=== PATIENT | female | born 1985 | race Caucasian/White ===

== ENCOUNTER 2018-05-28 11:57 | Emergency (ER) | payer SELFPAY ==
[2018-05-28 12:14] VITALS: BMI 27.2
--- NOTE | 2018-05-28 13:07 | PDOC ---
History of Present Illness - General Chief Complaint: Revisit, Lab Variance Stated Complaint: LAB VARIANCE (PCP SENT) Time Seen by Provider: 05/28/18 12:56 History Source: Patient Exam Limitations: No Limitations - History of Present Illness Initial Comments: 05/28/18 13:08 CHIEF COMPLAINT: Abnormal labs REVIEW OF SYSTEMS: This is a 32-year-old female who has been seeing Dr. Em for post- hypertension (she does not have another PCP) who presents today after follow-up labs revealed a BUN of 114 and creatinine of 8.2. The patient denies shortness of breath, edema, oliguria, or any other symptoms. She is not currently taking any hypertensive meds. She is sent for further evaluation and admission. Vital signs on arrival are notable for blood pressure 170/108. REVIEW OF SYSTEMS: GENERAL/CONSTITUTIONAL: No fever or chills. No weakness. No weight change. HEAD, EYES, EARS, NOSE AND THROAT: No change in vision. No ear pain or discharge. No sore throat. CARDIOVASCULAR: No chest pain or palpitations. RESPIRATORY: No cough, wheezing, or shortness of breath. GASTROINTESTINAL: No nausea, vomiting, diarrhea or constipation. GENITOURINARY: No dysuria, frequency, or change in urination. MUSCULOSKELETAL: No joint or muscle swelling or pain. No neck or back pain. SKIN: No rash or easy bruising. NEUROLOGIC: No headache, vertigo, loss of consciousness, or loss of sensation. PSYCHIATRIC: No depression or anxiety. ENDOCRINE: No increased thirst. No abnormal weight change. HEMATOLOGIC/LYMPHATIC: No anemia, easy bleeding, or history of blood clots. ALLERGIC/IMMUNOLOGIC: No hives or skin allergy. No latex allergy. PHYSICAL EXAM: GENERAL: The patient is awake, alert, and fully oriented, in no acute distress. HEAD: Normal with no signs of trauma. ENT: Pupils equal, round and reactive to light, extraocular movements intact, sclera anicteric, conjunctiva clear. Neck supple. LUNGS: Clear to auscultation bilaterally. Normal excursion. No respiratory distress or use of accessory muscles. CV: RRR, S1/S2, no MRG. Cap refill < 2 sec. ABDOMEN: Soft, non-distended, non-tender. EXTREMITIES: Normal range of motion, no edema. NEUROLOGICAL: Normal speech, normal gait. CN II-XII grossly intact. PSYCH: Normal mood, normal affect. SKIN: Warm, dry, normal turgor, no rashes or lesions noted. Past History - Past Medical History Allergies/Adverse Reactions: Allergies Allergy/AdvReac Type Severity Reaction Status Date / Time No Known Allergies Allergy Verified 04/05/16 10:26 Home Medications: Ambulatory Orders Ergocalciferol [Drisdol -] 50,000 unit PO FR 04/05/16 Labetalol HCl 300 mg PO Q12H 04/05/16 Methyldopa 250 mg PO Q12H 04/05/16 Mifepristone [Mifeprex] 0 mg PO ASDIR 04/05/16 Labetalol HCl [Normodyne -] 300 mg PO BID #60 tablet 04/08/16 Nifedipine ER [Procardia XL -] 30 mg PO DAILY #30 tab.er.24 04/08/16 Sodium Bicarbonate - 650 mg PO BID #14 tablet 04/08/16 COPD: No HTN: Yes Thyroid Disease: No - Surgical History Abdominal Surgery: Yes Cholecystectomy: Yes - Immunization History Immunization Up to Date: No - Suicide/Smoking/Psychosocial Hx Smoking History: Never smoked Have you smoked in the past 12 months: No Cigars Per Day: 0 Hx Alcohol Use: No Drug/Substance Use Hx: No Substance Use Type: None *Physical Exam - Vital Signs Last Vital Signs Temp Pulse Resp BP Pulse Ox 98.1 F 97 H 18 170/108 H 100 05/28/18 12:10 05/28/18 12:10 05/28/18 12:10 05/28/18 12:10 05/28/18 12:10 Moderate Sedation - Procedure Monitoring Vital Signs: Procedure Monitoring Vital Signs Temperature 98.1 F 05/28/18 12:10 Pulse Rate 97 H 05/28/18 12:10 Respiratory Rate 18 05/28/18 12:10 Blood Pressure 170/108 H 05/28/18 12:10 O2 Sat by Pulse Oximetry (%) 100 05/28/18 12:10 ED Treatment Course - LABORATORY CBC & Chemistry Diagram: 05/28/18 14:35 05/28/18 14:35 Medical Decision Making - Medical Decision Making 05/28/18 14:37 A/P: 32-year-old female with hypertension and acute kidney injury. -Discussed with Dr. Jackson: Will repeat labs, send AZAM, obtain renal u/s (renal doppler unavailable) -Will hydrate -Will admit 05/28/18 15:53 BUN 137/Cr 9.0, bicarb 12, calcium 5.1. Bicarb 650mg PO given. 2g IVPB calcium gluconate ordered. Ultrasound reviewed: small and echogenic kidneys consistent with chronic medical renal disease. Patient extensively counseled in Kiswahili that labs are very concerning and that immediate workup and treatment are necessary. She has decided to leave AMA at 6pm because she does not have childcare. She agrees to return tomorrow morning for admission, understanding that she will likely need to stay at least 5 days in the hospital. *DC/Admit/Observation/Transfer Diagnosis at time of Disposition: Hypocalcemia, Metabolic acidosis Acute on chronic renal failure Qualifiers: Acute renal failure type: unspecified Chronic kidney disease stage: stage 4 ( severe) Qualified Code(s): N17.9 - Acute kidney failure, unspecified; N18.4 - Chronic kidney disease, stage 4 (severe) Hypertension Qualifiers: Hypertension type: unspecified Qualified Code(s): I10 - Essential (primary) hypertension - Discharge Dispostion Disposition: AGAINST MEDICAL ADVICE Condition at time of disposition: Guarded Decision to Admit order: No - Referrals - Patient Instructions Printed Discharge Instructions: DI for Kidney Failure Additional Instructions: ES MUY IMPORTANT QUE REGRESE MANANA PARA [facility]. Print Language: SAUDI ARABIAN - Post Discharge Activity
[2018-05-28] MEDS ORDERED: SODIUM CHLORIDE 1,000 ML IV SCH ×2 (13:15→15:53)
[2018-05-28 14:54] LABS: BASO % 0.7 % (0-2.0); EOS % 1.8 % (0-4.5); HEMATOCRIT 28.2 % (32.4-45.2); HEMOGLOBIN 9.9 GM/dL (10.7-15.3); LYMPH % 12.4 % (8-40); MCH 32.1 pg (25.7-33.7); MEAN CELL VOLUME 91.6 fl (80-96); MEAN PLT VOLUME 8.8 fl (7.5-11.1); MONO % 3.9 % (3.8-10.2); NEUT % 81.2 % (42.8-82.8); PLATELET COUNT 226 K/MM3 (134-434); RBC 3.08 M/mm3 (3.60-5.2); RDW 13.2 % (11.6-15.6); WHITE BLOOD COUNT 10.1 K/mm3 (4.0-10.0)
[2018-05-28] MEDS ORDERED: SODIUM BICARBONATE 650 MG TABLET PO ONE ×2 (15:04→17:00)
[2018-05-28] MEDS ORDERED: NIFEdipine E.R. 30 MG TABLET (FP) ONE (15:13)
--- NOTE | 2018-05-28 15:17 | CONSULT ---
Consult - text type - Consultation Consultation Note: Renal Consult for CORAL on CKD This is a 32 year old woman with hx of CKD (baseline Cr ~2), Hypertension who was sent to the ED by Dr. Madison Em for outpatient labs that showed BUN/Cr of 114/8.22. Pt was intially seen by our service in 2016 for CORAL and Hypertension following a miscarriage. During that admission her Cr was intialy 3.6 but improved to ~2 after IVF. She presents now and has no acute complaints. Denies any N/V/LUCAS, CP, SOB. Making urine as per pt. Denies any leg swelling, fever, chills. Denies any NSAID use. No recent contrast exposure. No arm or leg weakness. K was 3.8, Bicarb was 16 on outpatient labs. BP was noted to be high. She reports that she is currently not taking any meds at home. PMhx: as above Allergies: NKDA Family Hx: NC Social Hx: No T/A/D ROS: as per HPI, all other pertinent ros negative Home Medications Medication Instructions Recorded Ergocalciferol [Drisdol -] 50,000 unit PO FR 04/05/16 Labetalol HCl 300 mg PO Q12H 04/05/16 Methyldopa 250 mg PO Q12H 04/05/16 Mifepristone [Mifeprex] 0 mg PO ASDIR 04/05/16 Labetalol HCl [Normodyne -] 300 mg PO BID #60 tablet 04/08/16 Nifedipine ER [Procardia XL -] 30 mg PO DAILY #30 tab.er.24 04/08/16 Sodium Bicarbonate - 650 mg PO BID #14 tablet 04/08/16 This was med list from piror admission, pt currently denies taking any medications Vital Signs Temperature 98.1 F 05/28/18 12:10 Pulse Rate 97 H 05/28/18 12:10 Respiratory Rate 18 05/28/18 12:10 Blood Pressure 170/108 H 05/28/18 12:10 O2 Sat by Pulse Oximetry (%) 100 05/28/18 12:10 Intake & Output 05/25/18 05/26/18 05/27/18 05/28/18 23:59 23:59 23:59 23:59 Weight 61.235 kg NAD awake and alrert neck supple, no JVD RRR, No M/R CTA, no rales or wheeze soft NT/ND No LE edema, clubbing or cyanosis no asterxsis no skin rash no focal neurologic defects CBC, BMP 05/28/18 14:35 Current Medications Sodium Chloride (Normal Saline -) 1,000 mls @ 83 mls/hr IV ASDIR CLARE Last Admin: 05/28/18 14:46 Dose: 83 mls/hr Nifedipine (Procardia Xl -) 30 mg PO DAILY CLARE 2 year old woman with hx of CKD (baseline Cr ~2), Hypertension who was sent to the ED by Dr. Madison Em for outpatient labs that showed BUN/Cr of 114/8.22. #Acute on Chronic Renal insuffiency #CKD stage 4 w/o nephrotic range proteinuria (prior work up showed negative AZAM , ANCA, Hepatitis profile) #Anemia #Uncontrolled Hypertension Etiology of CORAL unclear at this time, may be Volume depletion/ATN vs. hypertensive emergency vs. HUS vs. obstrction vs. acute GN vs. progressive hypertensive nephrosclerosis Check Urine for FeNa, UPCR, Eosinophils Check repeat AZAM, ANCA, LDH, Haptoglobin Check HIV, Hepatits profile Would give aggressive IVF hydration Start Nifedpine ER for hypertension Check iron profile in AM Start sodium bicarb for acidosis No emergency indication for PRIVACY DIRECTOR at this moment Thank you Will follow Will Jackson DO
[2018-05-28 15:31] LABS: ALBUMIN 3.5 g/dl (3.4-5.0); ALK PHOS 100 U/L (45-117); ANION GAP 16 MMOL/L (8-16); BILIRUBIN,TOTAL 0.2 mg/dL (0.2-1); CHLORIDE 110 mmol/L (98-107); CO2 12 mmol/L (21-32); GLUCOSE,RANDOM 86 mg/dL (74-106); MAGNESIUM 1.9 mg/dL (1.8-2.4); PHOSPHOROUS 8.7 mg/dL (2.5-4.9); POTASSIUM 4.1 mmol/L (3.5-5.1); SGOT/AST 18 U/L (15-37); SGPT/ALT 15 U/L (13-61); SODIUM 138 mmol/L (136-145); TOT PROT 7.1 g/dl (6.4-8.2); URIC ACID 10.1 mg/dL (2.6-7.2)
[2018-05-28 15:39] LABS: BLOOD UREA NITROGEN 137 mg/dL (7-18)
[2018-05-28 15:40] LABS: CALCIUM 5.1 mg/dL (8.5-10.1)
[2018-05-28 15:49] LABS: URINE APPEARANCE SLCLOUDY; URINE BILIRUBIN NEGATIVE (<2.0 mg/dL); URINE COLOR STRAW; URINE GLUCOSE (UA) NEGATIVE (NEGATIVE); URINE KETONE NEGATIVE (NEGATIVE); URINE LEUK ESTERASE NEGATIVE (NEGATIVE); URINE NITRITE NEGATIVE (NEGATIVE); URINE PROTEIN 2+ (NEGATIVE); URINE UROBILINOGEN NEGATIVE mg/dL (0.2-1.0)
[2018-05-28] MEDS ORDERED: CALCIUM GLUCONATE 10% - 1,000 MG/10 ML VIAL IVPB ONE (16:08)
[2018-05-28] MEDS ORDERED: CALCIUM GLUCONATE 10% - 1,000 MG/10 ML VIAL ONE (16:47)
[2018-05-28] MEDS ORDERED: DEXTROSE 5% IVPB SCH (17:00)
[2018-05-28] MEDS ORDERED: WATER IVPB SCH (17:00)
[2018-05-28] MEDS ORDERED: CALCIUM GLUCONATE IVPB SCH (17:00)
[2018-05-28 17:03] LABS: EPI CELLS RARE /HPF (FEW); URINE BACTERIA RARE /hpf (NONE SEEN); URINE MUCUS RARE
[2018-05-28 18:07] VITALS: BP 189/93; PULSE 70; TEMP 97.9
[2018-05-29] MEDS ORDERED: NIFEdipine E.R. 30 MG TABLET (FP) PO SCH (10:00)
== END 2018-05-28 17:52 | disposition left against medical advice (07) ==
LOC: JER 11:57
PROC: 3E0337Z Introduction of Electrolytic and Water Balance Substance into Peripheral Vein, Percutaneous Approach (ICD-10-PCS; principal; 2018-05-28)
DX: I12.9 Hypertensive chronic kidney disease with stage 1 through stage 4 chronic kidney disease, or unspecified chronic kidney disease (principal); N18.4 Chronic kidney disease, stage 4 (severe); N17.9 Acute kidney failure, unspecified; E83.51 Hypocalcemia; E87.2 Acidosis; D64.9 Anemia, unspecified
CPT/HCPCS: 36415; 76775-TC; 80053; 81003; 81015; 82570; 83010; 83735; 84100; 84156; 84550; 85025; 86038; 87205; 99281-25; J7030

== ENCOUNTER 2018-05-29 09:33 | Inpatient (IN) | payer OTHER ==
--- NOTE | 2018-05-29 10:05 | PDOC ---
History of Present Illness - General Chief Complaint: Pain, Acute Stated Complaint: REVISIT, PAIN Time Seen by Provider: 05/29/18 10:03 History Source: Patient Exam Limitations: No Limitations - History of Present Illness Initial Comments: 05/29/18 11:06 CHIEF COMPLAINT: Abnormal labs REVIEW OF SYSTEMS: This is a 32-year-old female who has been seeing Dr. Em for post- hypertension and mildly elevated creatinine (she does not have another PCP) and who initially presented 05/28 after follow-up labs revealed a BUN of 114 and creatinine of 8.2. She was asymptomatic, specifically denying shortness of breath, edema, and oliguria. She was noted to be hypertensive to the 170/100 range (she is not currently taking any medications) . Labs were notable for BUN 137/Cr 9.0 (previously in 2.3-2.6 range), bicarb 12 , calcium 5.1, UA 2+ protein. She was given 1L IVF, bicarb 650mg PO, 2g calcium gluconate IVPB, and Procardia XL 30mg. Renal ultrasound revealed small and echogenic kidneys consistent with chronic medical renal disease. She was evaluated by nephrology and admission for expedited workup and treatment was recommended. She then left AMA because of childcare issues and was counseled to return today for admission. She denies any new symptoms. She denies any NSAID or any other OTC medication use. V/s on arrival are notable for BP 163/109. REVIEW OF SYSTEMS: GENERAL/CONSTITUTIONAL: No fever or chills. No weakness. No weight change. HEAD, EYES, EARS, NOSE AND THROAT: No change in vision. No ear pain or discharge. No sore throat. CARDIOVASCULAR: No chest pain or palpitations. RESPIRATORY: No cough, wheezing, or shortness of breath. GASTROINTESTINAL: No nausea, vomiting, diarrhea or constipation. GENITOURINARY: No dysuria, frequency, or change in urination. MUSCULOSKELETAL: No joint or muscle swelling or pain. No neck or back pain. SKIN: No rash or easy bruising. NEUROLOGIC: No headache, vertigo, loss of consciousness, or loss of sensation. PSYCHIATRIC: No depression or anxiety. ENDOCRINE: No increased thirst. No abnormal weight change. HEMATOLOGIC/LYMPHATIC: No anemia, easy bleeding, or history of blood clots. ALLERGIC/IMMUNOLOGIC: No hives or skin allergy. No latex allergy. PHYSICAL EXAM: GENERAL: The patient is awake, alert, and fully oriented, in no acute distress. HEAD: Normal with no signs of trauma. ENT: Pupils equal, round and reactive to light, extraocular movements intact, sclera anicteric, conjunctiva clear. Neck supple. LUNGS: Clear to auscultation bilaterally. Normal excursion. No respiratory distress or use of accessory muscles. CV: RRR, S1/S2, no MRG. Cap refill < 2 sec. ABDOMEN: Soft, non-distended, non-tender. EXTREMITIES: Normal range of motion, no edema. NEUROLOGICAL: Normal speech, normal gait. CN II-XII grossly intact. PSYCH: Normal mood, normal affect. SKIN: Warm, dry, normal turgor, no rashes or lesions noted. Past History - Past Medical History Allergies/Adverse Reactions: Allergies Allergy/AdvReac Type Severity Reaction Status Date / Time No Known Allergies Allergy Verified 04/05/16 10:26 Home Medications: Ambulatory Orders NK [No Known Home Medication] 05/29/18 COPD: No HTN: Yes Thyroid Disease: No - Surgical History Abdominal Surgery: Yes Cholecystectomy: Yes - Immunization History Immunization Up to Date: No - Suicide/Smoking/Psychosocial Hx Smoking History: Never smoked Have you smoked in the past 12 months: No Cigars Per Day: 0 Information on smoking cessation initiated: No Hx Alcohol Use: No Drug/Substance Use Hx: No Substance Use Type: None *Physical Exam - Vital Signs Last Vital Signs Temp Pulse Resp BP Pulse Ox 97.9 F 86 18 163/109 H 98 05/29/18 09:55 05/29/18 09:55 05/29/18 09:55 05/29/18 09:55 05/29/18 09:55 Moderate Sedation - Procedure Monitoring Vital Signs: Procedure Monitoring Vital Signs Temperature 97.9 F 05/29/18 09:55 Pulse Rate 86 05/29/18 09:55 Respiratory Rate 18 05/29/18 09:55 Blood Pressure 163/109 H 05/29/18 09:55 O2 Sat by Pulse Oximetry (%) 98 05/29/18 09:55 ED Treatment Course - LABORATORY CBC & Chemistry Diagram: 05/29/18 10:25 05/29/18 10:25 Medical Decision Making - Medical Decision Making 05/29/18 11:10 A/P: 32-year-old female with 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 -Repeat labs -IV hydration per renal recs -Admit 05/29/18 11:52 BUN/Cr 134/9.0 Bicarb 14 - 1300 mg PO Ca++ 5.4 - Ca gluconate 2g IVPB Continue IVF 05/29/18 11:[address] Jackson, recommends: -Admission -Sodium bicarb 650mg po bid -Continue fluids for 24h -Procardia XL 30mg po bid -Will schedule biopsy with IR (not today, patient may eat) *DC/Admit/Observation/Transfer Diagnosis at time of Disposition: Acute kidney injury, Hypocalcemia Hypertension Qualifiers: Hypertension type: unspecified Qualified Code(s): I10 - Essential (primary) hypertension - Discharge Dispostion Condition at time of disposition: Guarded Decision to Admit order: Yes - Referrals - Patient Instructions - Post Discharge Activity
--- NOTE | 2018-05-29 10:05 | PDOC ---
*Physical Exam - Vital Signs Last Vital Signs Temp Pulse Resp BP Pulse Ox 97.9 F 86 18 163/109 H 98 05/29/18 09:55 05/29/18 09:55 05/29/18 09:55 05/29/18 09:55 05/29/18 09:55 ED Treatment Course - LABORATORY CBC & Chemistry Diagram: 05/29/18 10:25 05/29/18 10:25 Medical Decision Making - Medical Decision Making 05/29/18 11:00 32 yo F presenting for admission Was seen in the ER yesterday, new renal failure pt could not stay yesterday Pt returns for admission EKG - NSR rate of 84 bpm, axis nml, no st elevation or depressions, t waves upright, ( +) PACs Pt seen by Midlevel Provider under my direct supervision Pt interviewed and examined Ancillary studies reviewed I agree with plan as outlined by Midlevel Provider *DC/Admit/Observation/Transfer Diagnosis at time of Disposition: Hypertension, Acute kidney injury, Hypocalcemia - Discharge Dispostion Condition at time of disposition: Guarded - Referrals - Patient Instructions - Post Discharge Activity
[2018-05-29] MEDS ORDERED: NIFEdipine E.R. 30 MG TABLET (FP) PO ONE (10:08)
[2018-05-29] MEDS ORDERED: NIFEdipine E.R. 30 MG TABLET (FP) ONE (10:14)
[2018-05-29 10:36] LABS: BASO % 0.6 % (0-2.0); HEMATOCRIT 26.4 % (32.4-45.2); HEMOGLOBIN 9.3 GM/dL (10.7-15.3); LYMPH % 11.4 % (8-40); MCH 32.3 pg (25.7-33.7); MCHC 35.1 g/dl (32.0-36.0); MEAN PLT VOLUME 8.1 fl (7.5-11.1); MONO % 5.3 % (3.8-10.2); NEUT % 80.7 % (42.8-82.8); PLATELET COUNT 195 K/MM3 (134-434); RBC 2.87 M/mm3 (3.60-5.2); RDW 12.6 % (11.6-15.6); WHITE BLOOD COUNT 7.8 K/mm3 (4.0-10.0)
[2018-05-29] MEDS: SODIUM CHLORIDE 1,000 ML IV SCH (10:45)
[2018-05-29 11:30] LABS: ALBUMIN 3.3 g/dl (3.4-5.0); ALK PHOS 91 U/L (45-117); ANION GAP 16 MMOL/L (8-16); BILIRUBIN,TOTAL 0.3 mg/dL (0.2-1); CHLORIDE 110 mmol/L (98-107); CO2 14 mmol/L (21-32); GLUCOSE,RANDOM 90 mg/dL (74-106); PHOSPHOROUS 8.1 mg/dL (2.5-4.9); POTASSIUM 3.7 mmol/L (3.5-5.1); SGOT/AST 14 U/L (15-37); SGPT/ALT 14 U/L (13-61); SODIUM 141 mmol/L (136-145); TOT PROT 6.7 g/dl (6.4-8.2); URIC ACID 9.7 mg/dL (2.6-7.2)
[2018-05-29 11:31] LABS: URINE APPEARANCE CLEAR; URINE BILIRUBIN NEGATIVE (<2.0 mg/dL); URINE COLOR STRAW; URINE GLUCOSE (UA) NEGATIVE (NEGATIVE); URINE KETONE NEGATIVE (NEGATIVE); URINE LEUK ESTERASE NEGATIVE (NEGATIVE); URINE NITRITE NEGATIVE (NEGATIVE); URINE PROTEIN 2+ (NEGATIVE); URINE UROBILINOGEN NEGATIVE mg/dL (0.2-1.0)
[2018-05-29 11:34] LABS: EPI CELLS RARE /HPF (FEW); URINE MUCUS RARE
[2018-05-29] MEDS ORDERED: SODIUM BICARBONATE 650 MG TABLET PO ONE ×2 (11:43→11:53)
[2018-05-29 11:52] LABS: BLOOD UREA NITROGEN 134 mg/dL (7-18)
[2018-05-29] MEDS ORDERED: CALCIUM GLUCONATE 10% - 1,000 MG/10 ML VIAL IVPB ONE (11:52)
--- NOTE | 2018-05-29 11:55 | EKG ---
Test Reason : Blood Pressure : / mmHG Vent. Rate : 084 BPM Atrial Rate : 084 BPM P-R Int : 144 ms QRS Dur : 092 ms QT Int : 406 ms P-R-T Axes : 048 046 035 degrees QTc Int : 479 ms SINUS RHYTHM WITH PREMATURE SUPRAVENTRICULAR COMPLEXES OTHERWISE NORMAL ECG WHEN COMPARED WITH ECG OF 20-MAR-2016 09:26, PREMATURE SUPRAVENTRICULAR COMPLEXES ARE NOW PRESENT Confirmed by PARAM COTTER, MIGUEL ([id number]) on 05/29/2018 11:55:20 AM Referred By: Confirmed By:MIGUEL VIRGEN MD
[2018-05-29] MEDS ORDERED: CALCIUM GLUCONATE 10% - 1,000 MG/10 ML VIAL ONE (12:35)
[2018-05-29 12:40] LABS: CALCIUM 5.4 mg/dL (8.5-10.1)
[2018-05-29] MEDS ORDERED: WATER IVPB SCH (12:45)
[2018-05-29] MEDS ORDERED: DEXTROSE 5% IVPB SCH (12:45)
[2018-05-29] MEDS ORDERED: CALCIUM GLUCONATE IVPB SCH (12:45)
--- NOTE | 2018-05-29 13:25 | HP ---
CHIEF COMPLAINT: Sent for abnormal labs PCP: None Process Safety Engineer: Dr. Andre Em HISTORY OF PRESENT ILLNESS: 32yo F with history of CKD Stage IV (baseline Cr 2.0ish), HTN ( not on medications) who presents today due to abnormal labs. She was seen in the ER yesterday, however left AMA because her children did not have a ui software engineer while she was admitted. She returned today for likely admission as a result. Originally, pt was seen by her physician Dr. Em who recommended her to come to the ER due to severely elevated BUN and acute kidney injury (Cr 9.0) found on her office labs. Pt reports first seeing Dr. Em for post- HTN after a miscarriage around 2015. Pt reports not taking any medications recently including avoidance of all NSAIDs. Pt denies any symptoms at present time including clouded sensorium, focal neurological deficits, headache, lightheadedness, muscle twitching, SOB, CP/discomfort, palpitations, abdominal pain, back pain, dysuria, polyuria, oliguria, and hematuria. Of note: on 05/28 renal US was performed showing no hydronephrosis and echogeneic kidneys. On her initial labs confirmation of her uremia, Cr 9.0, electrolyte abnormalities and acidemia were confirmed. Recent Travel: Denies PAST MEDICAL HISTORY: CKD stage IV (nonnephrotic range proteinuria) HTN PAST SURGICAL HISTORY: None; denies any renal/urological procedures Social History: Smoking: Denies Alcohol: Denies Drugs: Denies Family History: Noncontributory Allergies No Known Allergies Allergy (Verified 04/05/16 10:26) HOME MEDICATIONS: Home Medications Medication Instructions Recorded NK [No Known Home Medication] 05/29/18 REVIEW OF SYSTEMS As per HPI PHYSICAL EXAMINATION Vital Signs - 24 hr 05/29/18 09:55 Temperature 97.9 F Pulse Rate 86 Respiratory 18 Rate Blood Pressure 163/109 H O2 Sat by Pulse 98 Oximetry (%) GENERAL: NAD, Awake, alert, and fully oriented, sitting in chair HEENT: NC/AT, EOMI, ROSA, sclera anicteric, MMM NECK: No JVD LUNGS: CTA bilaterally with good inspiratory effort. No wheezes, and no crackles. No accessory muscle use. On RA HEART: RRR, normal S1 and S2 without murmur, rub or gallop. ABDOMEN: Soft, NT/ND, normoactive bowel sounds, no guarding, No organomegaly via palpation. MUSCULOSKELETAL: No CVA tenderness. EXTREMITIES: 2+ distal pulses b/l, warm, well-perfused. No peripheral edema. NEUROLOGICAL: auto dismantler II-XII intact. Strength 5/5 in all upper and lower extremity areas. Sensation intact symmetrically. Normal speech. Gait stable. No tremoring noted. Reflexes 2/4 PSYCHIATRIC: Cooperative. Good eye contact. Appropriate mood and affect. SKIN: Warm, dry, no rashes or lesions noted Laboratory Results 05/29/18 05/29/18 05/29/18 10:25 10:25 11:20 WBC 7.8 RBC 2.87 L Hgb 9.3 L Hct 26.4 L MCV 92.0 MCH 32.3 MCHC 35.1 RDW 12.6 Plt Count 195 MPV 8.1 Absolute Neuts (auto) 6.3 Neutrophils % 80.7 Lymphocytes % 11.4 Monocytes % 5.3 Eosinophils % 2.0 Basophils % 0.6 Nucleated RBC % 0 Sodium 141 Potassium 3.7 Chloride 110 H Carbon Dioxide 14 L Anion Gap 16 BUN 134 H* Creatinine 9.0 H* Creat Clearance w eGFR 5.03 Random Glucose 90 Uric Acid 9.7 H Calcium 5.4 L* Phosphorus 8.1 H Total Bilirubin 0.3 AST 14 L ALT 14 Alkaline Phosphatase 91 Total Protein 6.7 Albumin 3.3 L Urine Color Straw Urine Appearance Clear Urine pH 5.0 Ur Specific [place] 1.009 L Urine Protein 2+ H Urine Glucose (UA) Negative Urine Ketones Negative Urine Blood 1+ H Urine Nitrite Negative Urine Bilirubin Negative Urine Urobilinogen Negative Ur Leukocyte Esterase Negative Urine WBC (Auto) 1 Urine RBC (Auto) 1 Ur Epithelial Cells Rare Urine Mucus Rare Urine Creatinine Urine HCG, Qual ASSESSMENT/PLAN: Acute on Chronic kidney failure Hypertensive Emergency Severe hypoCalcemia Uremia Normocytic Anemia Metabolic Acidosis --Etiology of acute kidney failure unclear --Differential: HTN emergency vs. HUS vs. ATN vs. other glomerular disease --Renal U/S 05/28/18: No evidence of hydronephrosis; echogenic kidneys noted b /l --Urine Pro:Cr 1.1 --> nonnephrotic range (<3.5) --Dr. Jackson on board --Procardia XL 30mg BID for HTN control --Intense fluid hydration for 24h; NS@125cc/hr; may need to switch to 1/ 2NS if further increase in Na and Cl --Possible IR biopsy tomorrow 05/30/18 pending HTN controlled --In absence of neurological deficits and clouded sensorium can hold off on emergent dialysis for now --Sodium Bicarb (1300 already given in ED) for acidosis; continue supplementation BID 650mg PO --FeNa pending Urine spot sodium; UCr 66 --UTox ordered --p- and c-ANCA ordered --LDH ordered --BMP repeat 1800h --Monitor BP q4h for HTN emergency --Labetalol 200mg PO BID PRN for SBP >150 --Procardia as above --Will likely need long-term maintenance upon discharge FEN: Fluids: NS@125cc/hr; 50cc/hr of D5W with Ca gtt noted Electrolyte abnormalities: HyperPhosphatemia, Severe hypoCalcemia (Calcium gtt) Nutrition: Renal Diet; NPO after midnight for possible IR kidney biopsy PPX: DVT - Heparin SQ; can hold night dose until tomorrow in case of IR procedure Code Status: Full Code Dispo: Can admit med-surg; does not need CCB/B-paola gtt for HTN emergency at this point; emergency SILK OPENER deferred for now Case discussed with Dr. Huerta and Nephrology service DO Mona George PGY-2 Visit type - Emergency Visit Emergency Visit: Yes ED Registration Date: 05/29/18 Care time: The patient presented to the Emergency Department on the above date and was hospitalized for further evaluation of their emergent condition. - New Patient This patient is new to me today: Yes Date on this admission: 05/29/18 - Critical Care Critical Care patient: No
--- NOTE | 2018-05-29 13:32 | PN ---
Progress Note (short form) - Note Progress Note: Renal follow up for CORAL on CKD Please see consult note done yesterday, will be listed under yesterdays ED visit. Pt seen and examined in the ER. Reports having a low appetite, feeling fatigued and having metallic taste in her mouth once again denies any NSAID or abx use Denies any flank pain No N/V/D, no arm or leg weakness, no confusion or lethargy making urine, no leg swelling Vital Signs Temperature 97.9 F 05/29/18 09:55 Pulse Rate 86 05/29/18 09:55 Respiratory Rate 18 05/29/18 09:55 Blood Pressure 163/109 H 05/29/18 09:55 O2 Sat by Pulse Oximetry (%) 98 05/29/18 09:55 Intake & Output 05/26/18 05/27/18 05/28/18 05/29/18 23:59 23:59 23:59 23:59 Weight 68.039 kg NAD awake and alrert neck supple, no JVD RRR, No M/R CTA, no rales or wheeze soft NT/ND No LE edema, clubbing or cyanosis no asterxsis no skin rash no focal neurologic defects CBC, BMP 05/29/18 10:25 05/29/18 10:25 Current Medications Heparin Sodium (Porcine) (Heparin -) 5,000 unit SQ Q8H-IV CLARE Sodium Chloride (Normal Saline -) 1,000 mls @ 125 mls/hr IV ASDIR CLARE Last Admin: 05/29/18 10:45 Dose: 125 mls/hr Calcium Gluconate 11,000 mg/ (Dextrose) 1,110 mls @ 50 mls/hr IVPB Q24H CLARE Nifedipine (Procardia Xl -) 30 mg PO DAILY CLARE 32 year old woman with hx of CKD (baseline Cr ~2), Hypertension who was sent to the ED by Dr. Madison Em for outpatient labs that showed BUN/Cr of 114/8.22. #Acute on Chronic Renal insufficiency #CKD stage 4 w/o nephrotic range proteinuria (prior work up showed negative AZAM , ANCA, Hepatitis profile) #Anemia #Uncontrolled Hypertension #Severe Hypocalcemia with Hyperphosphatemia #Metabolic acidosis Renal function essentially unchanged from yesterday despite IVF given in the ER US showed small echogenic kidneys w/o obstruction UPCR is 1.1 so not in nephrotic range AZAM is pending, repeat ANCA check LDH/Haptoglobin Check ABG or VBG will discuss with radiology if pt is a candidate to have a renal biopsy done although lack of overt proteinruia or hematuria makes it less likely that the pt is having a acute GN Will need to control BP, goal < 140/90 Start Nifedpine ER 30mg BID, start labetalol 200mg BID if BP not controlled avoid NSAIDS, ALFREDO and ARB given low eGFR Start oral sodium bicarb 650mg BID s/p calcium gluconate 2g IV in the ER, start calcium gtt Start Calcium acetate 667mg with meals if not significant improvement in renal function within the next 24 hours will need FAMILY SUPPORT WORKER Will Jackson DO
[2018-05-29] MEDS ORDERED: LABETALOL HCL 200 MG TABLET (FP) PO PRN ×2 (13:44→13:50)
--- NOTE | 2018-05-29 14:34 | PN ---
Teaching Attending Note Name of Resident: Christ Long ATTENDING PHYSICIAN STATEMENT I saw and evaluated the patient. I reviewed the resident's note and discussed the case with the resident. I agree with the resident's findings and plan as documented. SUBJECTIVE: Patient is a 32yo albanian speaking female with PMHx of CKD Stage IV (baseline Cr is around 2.0), HTN who presents with elevated Labs BUN of 134 and creatinine of 9.0 . Patient was sent to ED. from Dr. sandhu's office. Patient reports not taking any NSAIDs . Denies any change of mental status, no itching. OBJECTIVE: Vital Signs Temperature 97.9 F 05/29/18 09:55 Pulse Rate 86 05/29/18 09:55 Respiratory Rate 18 05/29/18 09:55 Blood Pressure 163/109 H 05/29/18 09:55 O2 Sat by Pulse Oximetry (%) 98 05/29/18 09:55 GENERAL: Awake, alert, and fully oriented, in no acute distress. HEAD: Normal with no signs of trauma. EYES: Pupils equal, round and reactive to light, extraocular movements intact, sclera anicteric, conjunctiva clear. EARS, NOSE, THROAT: Ears normal, oropharynx clear without exudates. Moist mucous membranes. NECK: Normal range of motion, supple without lymphadenopathy, JVD, or masses. LUNGS: Breath sounds equal, clear to auscultation bilaterally. No wheezes, and no crackles. No accessory muscle use. HEART: Regular rate and rhythm, normal S1 and S2 without murmur, rub or gallop. ABDOMEN: Soft, nontender, not distended, normoactive bowel sounds, no guarding, no rebound, no masses. No hepatomegaly or splenomegaly. MUSCULOSKELETAL: Normal range of motion at all joints. No bony deformities or tenderness. No CVA tenderness. EXTREMITIES: 2+ pulses, warm, well-perfused. No cyanosis. No clubbing. No peripheral edema. NEUROLOGICAL: Cranial nerves II-XII intact. Normal speech. Normal gait. PSYCHIATRIC: Cooperative. Good eye contact. Appropriate mood and affect. SKIN: Warm, dry, normal turgor, no rashes or lesions noted, normal capillary refill. CBCD WBC 7.8 K/mm3 (4.0-10.0) 05/29/18 10:25 RBC 2.87 M/mm3 (3.60-5.2) L 05/29/18 10:25 Hgb 9.3 GM/dL (10.7-15.3) L 05/29/18 10:25 Hct 26.4 % (32.4-45.2) L 05/29/18 10:25 MCV 92.0 fl (80-96) 05/29/18 10:25 MCHC 35.1 g/dl (32.0-36.0) 05/29/18 10:25 RDW 12.6 % (11.6-15.6) 05/29/18 10:25 Plt Count 195 K/MM3 (134-434) 05/29/18 10:25 MPV 8.1 fl (7.5-11.1) 05/29/18 10:25 CMP Sodium 141 mmol/L (136-145) 05/29/18 10:25 Potassium 3.7 mmol/L (3.5-5.1) 05/29/18 10:25 Chloride 110 mmol/L (98-107) H 05/29/18 10:25 Carbon Dioxide 14 mmol/L (21-32) L 05/29/18 10:25 Anion Gap 16 MMOL/L (8-16) 05/29/18 10:25 BUN 134 mg/dL (7-18) H* 05/29/18 10:25 Creatinine 9.0 mg/dL (0.55-1.3) H* 05/29/18 10:25 Creat Clearance w eGFR 5.03 (>60) 05/29/18 10:25 Random Glucose 90 mg/dL (74-106) 05/29/18 10:25 Calcium 5.4 mg/dL (8.5-10.1) L* 05/29/18 10:25 Total Bilirubin 0.3 mg/dL (0.2-1) 05/29/18 10:25 AST 14 U/L (15-37) L 05/29/18 10:25 ALT 14 U/L (13-61) 05/29/18 10:25 Alkaline Phosphatase 91 U/L (45-117) 05/29/18 10:25 Total Protein 6.7 g/dl (6.4-8.2) 05/29/18 10:25 Albumin 3.3 g/dl (3.4-5.0) L 05/29/18 10:25 Current Medications Generic Name Dose Route Start Last Admin Trade Name Freq PRN Reason Stop Dose Admin Calcium Acetate 667 mg 05/29/18 17:30 Phoslo - PO TIDCM CLARE Heparin Sodium (Porcine) 5,000 unit 05/29/18 18:00 Heparin - SQ Q8H-IV CLARE Sodium Chloride 1,000 mls @ 125 mls/hr 05/29/18 10:15 05/29/18 10:45 Normal Saline - IV 125 mls/hr ASDIR CLARE Administration Calcium Gluconate 11,000 mg/ 1,110 mls @ 50 mls/hr 05/29/18 12:45 05/29/18 14 :02 Dextrose IVPB 50 mls/hr Q24H CLARE Administration Labetalol HCl 200 mg 05/29/18 13:50 Normodyne - PO BID PRN HYPERTENSION Nifedipine 30 mg 05/29/18 22:00 Procardia Xl - PO BID CLARE Sodium Bicarbonate 650 mg 05/30/18 10:00 Sodium Bicarbonate - PO BID CLARE Home Medications Medication Instructions Recorded NK [No Known Home Medication] 05/29/18 ASSESSMENT AND PLAN: Patient is a 32yo albanian speaking female with PMHx of CKD Stage IV (baseline Cr is around 2.0), HTN who presents with elevated BUN of 134 and creatinine of 9.0 . was sent to the ED. from Dr. sandhu's office for possible kideny biopsy. # Acute on Chronic kidney failure most likely due to Uncontrolled hypertension, will continue to monitor, on board. # Hypertensive Emergency. placed on Procardia xl 30mg po bid, labetolol as per # Severe hypoCalcemia on Calcium gluconate IV # Normocytic Anemia will continue to monitor # Metabolic Acidosis on Bicarb. oral DVt Px: heparin sq
[2018-05-29 14:50] LABS: ARTERIAL BLD GAS O2 SATURATION 97.5 % (90-98.9); ARTERIAL BLOOD GAS PCO2 30.5 mmHg (35-45); ARTERIAL BLOOD GAS pH 7.27 (7.35-7.45)
[2018-05-29 15:02] LABS: ALLENS TEST POSITIVE
[2018-05-29 15:04] LABS: ARTERIAL BLOOD GAS BASE EXCESS -11.9 meq/l (-2-2)
[2018-05-29] MEDS: CALCIUM ACETATE 667 MG CAPSULE (FP) PO SCH (17:44)
[2018-05-29] MEDS: HEPARIN NA (PORCINE) 5,000 UNITS/ML 1ML VIAL SQ SCH (17:44)
[2018-05-29 18:38] LABS: INR 1.07 (0.83-1.09); PROTHROMBIN TIME (PATIENT) 12.6 SEC (9.7-13.0)
[2018-05-29 19:50] LABS: ANION GAP 14 MMOL/L (8-16); CHLORIDE 108 mmol/L (98-107); CO2 17 mmol/L (21-32); GLUCOSE,RANDOM 162 mg/dL (74-106); POTASSIUM 3.4 mmol/L (3.5-5.1); SODIUM 139 mmol/L (136-145)
[2018-05-29 20:56] LABS: BLOOD UREA NITROGEN 125 mg/dL (7-18)
[2018-05-29 20:57] LABS: CALCIUM 6.3 mg/dL (8.5-10.1); CREATININE 8.3 mg/dL (0.55-1.3)
[2018-05-29] MEDS: NIFEdipine E.R. 30 MG TABLET (FP) PO SCH (21:37)
[2018-05-30 06:48] LABS: EOS % 3.1 % (0-4.5); HEMATOCRIT 26.6 % (32.4-45.2); HEMOGLOBIN 9.4 GM/dL (10.7-15.3); LYMPH % 17.3 % (8-40); MCH 32.2 pg (25.7-33.7); MCHC 35.2 g/dl (32.0-36.0); MEAN CELL VOLUME 91.5 fl (80-96); MEAN PLT VOLUME 8.2 fl (7.5-11.1); MONO % 5.5 % (3.8-10.2); NEUT % 73.1 % (42.8-82.8); PLATELET COUNT 189 K/MM3 (134-434); RBC 2.91 M/mm3 (3.60-5.2); RDW 12.7 % (11.6-15.6)
[2018-05-30 07:19] LABS: INR 1.08 (0.83-1.09); PROTHROMBIN TIME (PATIENT) 12.7 SEC (9.7-13.0)
[2018-05-30] MEDS: CALCIUM ACETATE 667 MG CAPSULE (FP) PO SCH ×3 (08:00→18:01)
[2018-05-30 09:05] LABS: ALBUMIN 3.2 g/dl (3.4-5.0); ALK PHOS 80 U/L (45-117); ANION GAP 17 MMOL/L (8-16); BILIRUBIN,TOTAL 0.5 mg/dL (0.2-1); CALCIUM 8.2 mg/dL (8.5-10.1); CHLORIDE 107 mmol/L (98-107); CO2 15 mmol/L (21-32); GLUCOSE,RANDOM 93 mg/dL (74-106); LDH 212 U/L (84-246); MAGNESIUM 1.6 mg/dL (1.8-2.4); PHOSPHOROUS 7.1 mg/dL (2.5-4.9); POTASSIUM 3.4 mmol/L (3.5-5.1); SGOT/AST 13 U/L (15-37); SGPT/ALT 11 U/L (13-61); SODIUM 139 mmol/L (136-145); TOT PROT 6.4 g/dl (6.4-8.2)
[2018-05-30 09:10] LABS: BLOOD UREA NITROGEN 117 mg/dL (7-18); CREATININE 8.2 mg/dL (0.55-1.3)
[2018-05-30] MEDS: NIFEdipine E.R. 30 MG TABLET (FP) PO SCH ×2 (09:32→21:35)
[2018-05-30] MEDS ORDERED: SODIUM BICARBONATE 650 MG TABLET PO SCH (10:00)
[2018-05-30] MEDS ORDERED: NIFEdipine E.R. 30 MG TABLET (FP) PO SCH (10:00)
[2018-05-30 11:36] LABS: VENOUS PH 7.47 (7.32-7.42)
[2018-05-30 11:37] LABS: VENOUS PC02 34.6 mmHg (38-52)
[2018-05-30] MEDS ORDERED: POTASSIUM CHLORIDE TABS 20 MEQ TABLET.ER (FP) PO ONE (14:49)
[2018-05-30] MEDS ORDERED: MAGNESIUM SULF 50% (8.12 MEQ/2 ML-1 GM VIAL) IVPB ONE (14:50)
[2018-05-30] MEDS: SODIUM CHLORIDE 1,000 ML IV SCH (15:31)
--- NOTE | 2018-05-30 16:08 | PN ---
Physical Exam: SUBJECTIVE: Patient seen and examined at bedside this morning. No acute events overnight. Patient has no complaints. Patient is a 32 year old female with past medical history of CKD (baseline Cr 2 ) and HTN, sent by Dr. Em to the ED for abnormally elevated BUN/Cr of 114/ 8.22. Patient was last seen in 2015 where she was noted to have CORAL and HTN following a miscarriage. Patient remains asymptomatic. OBJECTIVE: Vital Signs Temperature 97.9 F 05/30/18 15:11 Pulse Rate 78 05/30/18 15:11 Respiratory Rate 16 05/30/18 14:15 Blood Pressure 138/72 05/30/18 15:11 O2 Sat by Pulse Oximetry (%) 100 05/30/18 14:15 GENERAL: The patient is awake, alert, and fully oriented, in no acute distress. HEAD: Normal with no signs of trauma. EYES: PERRLA, EOMI, sclera anicteric, conjunctiva clear. NECK: Trachea midline, full range of motion, supple. LUNGS: Breath sounds equal, clear to auscultation bilaterally. HEART: Regular rate and rhythm, S1, S2 without murmur, rub or gallop. ABDOMEN: Soft, nontender, nondistended, normoactive bowel sounds. EXTREMITIES: 2+ pulses, warm, well-perfused, no edema. NEUROLOGICAL: Cranial nerves II through XII grossly intact. Normal speech, normal gait. PSYCH: Normal mood, normal affect. SKIN: Warm, dry, normal turgor, no rashes or lesions noted Laboratory Results - last 24 hr 05/29/18 05/29/18 05/29/18 11:20 14:30 17:30 WBC RBC Hgb Hct MCV MCH MCHC RDW Plt Count MPV Absolute Neuts (auto) Neutrophils % Lymphocytes % Monocytes % Eosinophils % Basophils % Nucleated RBC % PT with INR 12.60 INR 1.07 VBG pH 7.47 H D POC VBG pCO2 34.6 L POC VBG pO2 54.0 H Mixed VBG HCO3 25.3 H Sodium Potassium Chloride Carbon Dioxide Anion Gap BUN Creatinine Creat Clearance w eGFR Random Glucose Hemoglobin A1c % Calcium Phosphorus Magnesium Ferritin Total Bilirubin AST ALT Alkaline Phosphatase LD Total Total Protein Albumin Urine Protein 73 H Ur Random Sodium 48 Urine Creatinine 66.0 H 05/29/18 05/30/18 05/30/18 18:20 06:20 06:20 WBC 6.0 RBC 2.91 L Hgb 9.4 L Hct 26.6 L MCV 91.5 MCH 32.2 MCHC 35.2 RDW 12.7 Plt Count 189 MPV 8.2 Absolute Neuts (auto) 4.4 Neutrophils % 73.1 Lymphocytes % 17.3 D Monocytes % 5.5 Eosinophils % 3.1 Basophils % 1.0 Nucleated RBC % 0 PT with INR INR VBG pH POC VBG pCO2 POC VBG pO2 Mixed VBG HCO3 Sodium 139 139 Potassium 3.4 L 3.4 L Chloride 108 H 107 Carbon Dioxide 17 L 15 L Anion Gap 14 17 H BUN 125 H* 117 H* Creatinine 8.3 H* 8.2 H* Creat Clearance w eGFR 5.52 5.60 Random Glucose 162 H 93 Hemoglobin A1c % Calcium 6.3 L* 8.2 L Phosphorus 7.1 H Magnesium 1.6 L Ferritin Total Bilirubin 0.5 AST 13 L ALT 11 L Alkaline Phosphatase 80 LD Total 212 Total Protein 6.4 Albumin 3.2 L Urine Protein Ur Random Sodium Urine Creatinine 05/30/18 05/30/18 05/30/18 06:20 06:20 06:20 WBC RBC Hgb Hct MCV MCH MCHC RDW Plt Count MPV Absolute Neuts (auto) Neutrophils % Lymphocytes % Monocytes % Eosinophils % Basophils % Nucleated RBC % PT with INR 12.70 INR 1.08 VBG pH POC VBG pCO2 POC VBG pO2 Mixed VBG HCO3 Sodium Potassium Chloride Carbon Dioxide Anion Gap BUN Creatinine Creat Clearance w eGFR Random Glucose Hemoglobin A1c % 4.7 Calcium Phosphorus Magnesium Ferritin 102.5 Total Bilirubin AST ALT Alkaline Phosphatase LD Total Total Protein Albumin Urine Protein Ur Random Sodium Urine Creatinine Active Medications Generic Name Dose Route Start Last Admin Trade Name Freq PRN Reason Stop Dose Admin Calcium Acetate 667 mg 05/29/18 17:30 05/30/18 12:00 Phoslo - PO Not Given TIDCM CLARE Heparin Sodium (Porcine) 5,000 unit 05/29/18 18:00 05/29/18 17:44 Heparin - SQ 5,000 unit Q8H-IV [facility] Administration Sodium Chloride 1,000 mls @ 125 mls/hr 05/29/18 10:15 05/30/18 15:31 Normal Saline - IV 125 mls/hr ASDIR CLARE Administration Labetalol HCl 200 mg 05/29/18 13:50 05/30/18 09:32 Normodyne - PO 200 mg BID PRN Administration HYPERTENSION Nifedipine 30 mg 05/29/18 22:00 05/30/18 09:32 Procardia Xl - PO 30 mg BID CLARE Administration Sodium Bicarbonate 650 mg 05/30/18 10:00 05/30/18 15:32 Sodium Bicarbonate - PO 650 mg BID CLARE Administration ASSESSMENT/PLAN: Patient is a 32 year old female with past medical history of CKD (baseline Cr 2 ) and HTN, sent by Dr. Em to the ED for abnormally elevated BUN/Cr of 114/ 8.22. #CORAL on CKD stage 4 -may be 2/2 HTN emergency vs ATN. vs glomerular disease -Renal US -Urine Pro:Cr 1.1 --> non-nephrotic range (<3.5) -FeNa: Eric 48, UCr 66 = 4.3% -Utox ordered -p-ANCA, c-ANCA -LDH -Renal biopsy done -Nephrology (Dr. Jackson) consulted. Recommendations appreciated. 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 REcommendations appreciated. -NPO after midnight -GI/DVT ppx -medical optimization/clearance #Hypertension: chronic -Continue Nifedipine ER 30mg BID -Labetalol 200mg PO BID PRN for SBP >150 -Will need more control as outpatient #Hypocalcemia and Hyperphosphatemia -Calcitriol 0.25mcg daily -Phos binder with meals #Normocytic Anemia -likely 2/2 CKD -Retic count -Iron studies #Metabolic acidosis -ABG on admission: 7.27/30.5/107/13.6 -sodium bicarbonate increased to 1300mg BID #FEN -IV NS @125cc/hr -Hypokalemia, repleted -Routine bmp monitoring -Renal diet #Prophylaxis -Heparin 5000units sq tid #Disposition -full code -med surg Visit type - Emergency Visit Emergency Visit: Yes ED Registration Date: 05/29/18 Care time: The patient presented to the Emergency Department on the above date and was hospitalized for further evaluation of their emergent condition. - New Patient This patient is new to me today: Yes Date on this admission: 05/30/18 - Critical Care Critical Care patient: No
--- NOTE | 2018-05-30 16:14 | PN ---
Progress Note (short form) - Note Progress Note: Renal follow up for CORAL on CKD Pt seen and examined at the bedside s/p renal biopsy this afternoon, tolerated it well had N/V after procedure denies any SOB, CP,Abd pain, flank pain making urine Vital Signs Temperature 97.9 F 05/30/18 15:11 Pulse Rate 78 05/30/18 15:11 Respiratory Rate 16 05/30/18 14:15 Blood Pressure 138/72 05/30/18 15:11 O2 Sat by Pulse Oximetry (%) 100 05/30/18 14:15 Intake & Output 05/27/18 05/28/18 05/29/18 05/30/18 23:59 23:59 23:59 23:59 Intake Total 200 0 Balance 200 0 Weight 66.86 kg 63.276 kg NAD RRR, No M/R CTA, no rales or wheeze soft NT/ND No LE edema, clubbing or cyanosis no focal neurologic defects CBC, BMP 05/30/18 06:20 05/30/18 06:20 Current Medications Calcium Acetate (Phoslo -) 667 mg PO TIDCM [facility] Last Admin: 05/30/18 12:00 Dose: Not Given Heparin Sodium (Porcine) (Heparin -) 5,000 unit SQ Q8H-IV [facility] Last Admin: 05/29/18 17:44 Dose: 5,000 unit Sodium Chloride (Normal Saline -) 1,000 mls @ 125 mls/hr IV ASDIR [facility] Last Admin: 05/30/18 15:31 Dose: 125 mls/hr Labetalol HCl (Normodyne -) 200 mg PO BID PRN PRN Reason: HYPERTENSION Last Admin: 05/30/18 09:32 Dose: 200 mg Nifedipine (Procardia Xl -) 30 mg PO BID [facility] Last Admin: 05/30/18 09:32 Dose: 30 mg Sodium Bicarbonate (Sodium Bicarbonate -) 650 mg PO BID [facility] Last Admin: 05/30/18 15:32 Dose: 650 mg 32 year old woman with hx of CKD (baseline Cr ~2), Hypertension who was sent to the ED by Dr. Madison Em for outpatient labs that showed BUN/Cr of 114/8.22. #Acute on Chronic Renal insufficiency #CKD stage 4 w/o nephrotic range proteinuria (prior work up showed negative AZAM , ANCA, Hepatitis profile) #Anemia #Uncontrolled Hypertension #Severe Hypocalcemia with Hyperphosphatemia #Metabolic acidosis s/p renal biopsy this afternoon, will await results (likely early next week) given eGFR of ~5 and lack of improvement s/p IVF will need SL[employer]K [employer]IN CURER this was discussed with the patient, she was very upset but understood and agreeable to proceed will consult vascular surgery for tunneled HD catheter placement and plan for first dialysis tomorrow Increase sodium bicarb to 1300mg BID off Calcium gtt Start Calcitriol 0.25mcg daily Continue phos binder with meals Continue Nifedpine ER and labetalol for hypertension will give YODIT with HD Will Jackson DO
[2018-05-30] MEDS ORDERED: ONDANSETRON 4 MG/2 ML VIAL IVPUSH PRN (16:17)
--- NOTE | 2018-05-30 16:29 | SPA.PREOP ---
- PRE-OP NOTE Dx: Renal failure Planned Procedure: Permacath placement Surgeon: Moe Rebollar MD Last Vital Signs Temp Pulse Resp BP Pulse Ox 97.9 F 78 16 138/72 100 05/30/18 15:11 05/30/18 15:11 05/30/18 14:15 05/30/18 15:11 05/30/18 14:15 Lab Results WBC 6.0 K/mm3 (4.0-10.0) 05/30/18 06:20 RBC 2.91 M/mm3 (3.60-5.2) L 05/30/18 06:20 Hgb 9.4 GM/dL (10.7-15.3) L 05/30/18 06:20 Hct 26.6 % (32.4-45.2) L 05/30/18 06:20 MCV 91.5 fl (80-96) 05/30/18 06:20 MCHC 35.2 g/dl (32.0-36.0) 05/30/18 06:20 RDW 12.7 % (11.6-15.6) 05/30/18 06:20 Plt Count 189 K/MM3 (134-434) 05/30/18 06:20 Sodium 139 mmol/L (136-145) 05/30/18 06:20 Potassium 3.4 mmol/L (3.5-5.1) L 05/30/18 06:20 Chloride 107 mmol/L (98-107) 05/30/18 06:20 Carbon Dioxide 15 mmol/L (21-32) L 05/30/18 06:20 Anion Gap 17 MMOL/L (8-16) H 05/30/18 06:20 BUN 117 mg/dL (7-18) H* 05/30/18 06:20 Creatinine 8.2 mg/dL (0.55-1.3) H* 05/30/18 06:20 Random Glucose 93 mg/dL (74-106) 05/30/18 06:20 Calcium 8.2 mg/dL (8.5-10.1) L 05/30/18 06:20 INR 1.08 (0.83-1.09) 05/30/18 06:20 - ASSESSMENT/PLAN 1. Make NPO after midnight except po meds 2. GI/DVT PPX 3. Medical optimization / clearance 4. Consent to be obtained by surgeon after risks, benefits and alternatives discussed with patient and or Health Care Proxy.
--- NOTE | 2018-05-30 17:32 | PN ---
Teaching Attending Note Name of Resident: Isela Rivera ATTENDING PHYSICIAN STATEMENT I saw and evaluated the patient. I reviewed the resident's note and discussed the case with the resident. I agree with the resident's findings and plan as documented. SUBJECTIVE: Patient is a 32yo female with no acute distress. OBJECTIVE: Vital Signs Temperature 97.9 F 05/30/18 15:11 Pulse Rate 78 05/30/18 15:11 Respiratory Rate 16 05/30/18 14:15 Blood Pressure 138/72 05/30/18 15:11 O2 Sat by Pulse Oximetry (%) 100 05/30/18 14:15 GENERAL: Awake, alert, and fully oriented, in no acute distress. HEAD: Normal with no signs of trauma. EYES: Pupils equal, round and reactive to light, extraocular movements intact, sclera anicteric, conjunctiva clear. EARS, NOSE, THROAT: Ears normal, Moist mucous membranes. NECK: Normal range of motion, supple without lymphadenopathy, JVD, or masses. LUNGS: Breath sounds equal, clear to auscultation bilaterally. No wheezes, and no crackles. No accessory muscle use. HEART: Regular rate and rhythm, normal S1 and S2 without murmur, rub or gallop. ABDOMEN: Soft, nontender, not distended, normoactive bowel sounds, no guarding, no rebound, no masses. EXTREMITIES: 2+ pulses, warm, well-perfused. No cyanosis. No clubbing. No peripheral edema. NEUROLOGICAL: Cranial nerves II-XII intact. Normal speech. Normal gait. PSYCHIATRIC: Cooperative. Good eye contact. Appropriate mood and affect. SKIN: Warm, dry, normal turgor, no rashes or lesions noted, normal capillary refill. CBCD WBC 6.0 K/mm3 (4.0-10.0) 05/30/18 06:20 RBC 2.91 M/mm3 (3.60-5.2) L 05/30/18 06:20 Hgb 9.4 GM/dL (10.7-15.3) L 05/30/18 06:20 Hct 26.6 % (32.4-45.2) L 05/30/18 06:20 MCV 91.5 fl (80-96) 05/30/18 06:20 MCHC 35.2 g/dl (32.0-36.0) 05/30/18 06:20 RDW 12.7 % (11.6-15.6) 05/30/18 06:20 Plt Count 189 K/MM3 (134-434) 05/30/18 06:20 MPV 8.2 fl (7.5-11.1) 05/30/18 06:20 CMP Sodium 139 mmol/L (136-145) 05/30/18 06:20 Potassium 3.4 mmol/L (3.5-5.1) L 05/30/18 06:20 Chloride 107 mmol/L (98-107) 05/30/18 06:20 Carbon Dioxide 15 mmol/L (21-32) L 05/30/18 06:20 Anion Gap 17 MMOL/L (8-16) H 05/30/18 06:20 BUN 117 mg/dL (7-18) H* 05/30/18 06:20 Creatinine 8.2 mg/dL (0.55-1.3) H* 05/30/18 06:20 Creat Clearance w eGFR 5.60 (>60) 05/30/18 06:20 Random Glucose 93 mg/dL (74-106) 05/30/18 06:20 Calcium 8.2 mg/dL (8.5-10.1) L 05/30/18 06:20 Total Bilirubin 0.5 mg/dL (0.2-1) 05/30/18 06:20 AST 13 U/L (15-37) L 05/30/18 06:20 ALT 11 U/L (13-61) L 05/30/18 06:20 Alkaline Phosphatase 80 U/L (45-117) 05/30/18 06:20 Total Protein 6.4 g/dl (6.4-8.2) 05/30/18 06:20 Albumin 3.2 g/dl (3.4-5.0) L 05/30/18 06:20 Current Medications Generic Name Dose Route Start Last Admin Trade Name Freq PRN Reason Stop Dose Admin Calcium Acetate 667 mg 05/29/18 17:30 05/30/18 12:00 Phoslo - PO Not Given TIDCM CLARE Heparin Sodium (Porcine) 5,000 unit 05/29/18 18:00 05/29/18 17:44 Heparin - SQ 5,000 unit Q8H-IV CLARE Administration Sodium Chloride 1,000 mls @ 125 mls/hr 05/29/18 10:15 05/30/18 15:31 Normal Saline - IV 125 mls/hr ASDIR CLARE Administration Labetalol HCl 200 mg 05/29/18 13:50 05/30/18 09:32 Normodyne - PO 200 mg BID PRN Administration HYPERTENSION Nifedipine 30 mg 05/29/18 22:00 05/30/18 09:32 Procardia Xl - PO 30 mg BID CLARE Administration Ondansetron HCl 4 mg 05/30/18 16:17 05/30/18 16:30 Zofran Injection IVPUSH 4 mg Q6H PRN Administration NAUSEA AND/OR VOMITING Sodium Bicarbonate 1,300 mg 05/30/18 16:16 Sodium Bicarbonate - PO BID CLARE Home Medications Medication Instructions Recorded NK [No Known Home Medication] 05/29/18 Laboratory Tests 05/29/18 05/29/18 05/30/18 10:25 18:20 06:20 BUN 134 H* 125 H* 117 H* Creatinine 9.0 H* 8.3 H* 8.2 H* ASSESSMENT AND PLAN: Patient is a 32yo bengali speaking female with PMHx of CKD Stage IV (baseline Cr is around 2.0), HTN who presents with elevated BUN of 134 and creatinine of 9.0 . was sent to the ED. from Dr. sandhu's office for possible kideny biopsy. # Acute on Chronic kidney failure most likely due to Uncontrolled hypertension, improving 134/9.0-->117/8.2 , continue IVF, will continue to monitor, on board. Perm a cath placement in am, as per Nephro request. Dr. Duke on the case. # Hypertensive Emergency. blood pressure is controlled now, continue Procardia xl 30mg po bid, labetolol as per # Severe hypoCalcemia s/p Calcium gluconate IV , level 8.2 today # Normocytic Anemia will continue to monitor # Metabolic Acidosis on Bicarb. oral DVt Px: heparin sq NPO after midnight
[2018-05-30] MEDS: HEPARIN NA (PORCINE) 5,000 UNITS/ML 1ML VIAL SQ SCH (18:01)
[2018-05-30] MEDS: SODIUM BICARBONATE 650 MG TABLET PO SCH (21:35)
[2018-05-31] MEDS: HEPARIN NA (PORCINE) 5,000 UNITS/ML 1ML VIAL SQ SCH ×2 (02:46→22:47)
[2018-05-31] MEDS: SODIUM CHLORIDE 1,000 ML IV SCH ×3 (02:47→22:45)
[2018-05-31 04:17] LABS: SERUM IRON SATURATION 49 % (15-55); TOTAL IRON BINDING CAPACITY 244 ug/dL (250-450); UIBC 125 ug/dL (131-425)
[2018-05-31 07:42] LABS: BASO % 0.7 % (0-2.0); EOS % 1.3 % (0-4.5); HEMATOCRIT 23.6 % (32.4-45.2); HEMOGLOBIN 8.3 GM/dL (10.7-15.3); LYMPH % 13.5 % (8-40); MCH 32.5 pg (25.7-33.7); MCHC 35.3 g/dl (32.0-36.0); MEAN CELL VOLUME 91.9 fl (80-96); MEAN PLT VOLUME 8.5 fl (7.5-11.1); MONO % 5.6 % (3.8-10.2); NEUT % 78.9 % (42.8-82.8); PLATELET COUNT 166 K/MM3 (134-434); RBC 2.56 M/mm3 (3.60-5.2); RDW 12.5 % (11.6-15.6); WHITE BLOOD COUNT 6.7 K/mm3 (4.0-10.0)
--- NOTE | 2018-05-31 07:56 | PN ---
Teaching Attending Note Name of Resident: Isela Rivera ATTENDING PHYSICIAN STATEMENT I saw and evaluated the patient. I reviewed the resident's note and discussed the case with the resident. I agree with the resident's findings and plan as documented. SUBJECTIVE: Patient is comfortable no new complains. OBJECTIVE: Vital Signs Temperature 98.9 F 05/31/18 05:00 Pulse Rate 91 H 05/31/18 05:00 Respiratory Rate 12 05/31/18 05:00 Blood Pressure 131/73 05/31/18 05:00 O2 Sat by Pulse Oximetry (%) 100 05/30/18 20:49 GENERAL: Awake, alert, and fully oriented, in no acute distress. HEAD: Normal with no signs of trauma. EYES: Pupils equal, round and reactive to light, extraocular movements intact, sclera anicteric, conjunctiva clear. EARS, NOSE, THROAT: Ears normal, Moist mucous membranes. NECK: Normal range of motion, supple without lymphadenopathy, JVD, or masses. LUNGS: Breath sounds equal, clear to auscultation bilaterally. No wheezes, and no crackles. . HEART: Regular rate and rhythm, normal S1 and S2 without murmur, rub or gallop. ABDOMEN: Soft, nontender, not distended, normoactive bowel sounds, no guarding, no rebound, no masses. EXTREMITIES: 2+ pulses, warm, well-perfused. No cyanosis. No clubbing. No peripheral edema. NEUROLOGICAL: Cranial nerves II-XII intact. Normal speech. Normal gait. PSYCHIATRIC: Cooperative. Good eye contact. Appropriate mood and affect. SKIN: Warm, dry, normal turgor, no rashes or lesions noted, normal capillary refill. CBCD WBC 6.7 K/mm3 (4.0-10.0) 05/31/18 06:30 RBC 2.56 M/mm3 (3.60-5.2) L 05/31/18 06:30 Hgb 8.3 GM/dL (10.7-15.3) L 05/31/18 06:30 Hct 23.6 % (32.4-45.2) L 05/31/18 06:30 MCV 91.9 fl (80-96) 05/31/18 06:30 MCHC 35.3 g/dl (32.0-36.0) 05/31/18 06:30 RDW 12.5 % (11.6-15.6) 05/31/18 06:30 Plt Count 166 K/MM3 (134-434) 05/31/18 06:30 MPV 8.5 fl (7.5-11.1) 05/31/18 06:30 CMP Sodium 140 mmol/L (136-145) 05/31/18 06:30 Potassium 3.2 mmol/L (3.5-5.1) L 05/31/18 06:30 Chloride 111 mmol/L (98-107) H 05/31/18 06:30 Carbon Dioxide 18 mmol/L (21-32) L 05/31/18 06:30 Anion Gap 11 MMOL/L (8-16) 05/31/18 06:30 BUN 106 mg/dL (7-18) H* 05/31/18 06:30 Creatinine 7.6 mg/dL (0.55-1.3) H* 05/31/18 06:30 Creat Clearance w eGFR 6.11 (>60) 05/31/18 06:30 Random Glucose 95 mg/dL (74-106) 05/31/18 06:30 Calcium 6.0 mg/dL (8.5-10.1) L* 05/31/18 06:30 Total Bilirubin 0.3 mg/dL (0.2-1) 05/31/18 06:30 AST 11 U/L (15-37) L 05/31/18 06:30 ALT 12 U/L (13-61) L 05/31/18 06:30 Alkaline Phosphatase 68 U/L (45-117) 05/31/18 06:30 Total Protein 6.0 g/dl (6.4-8.2) L 05/31/18 06:30 Albumin 3.0 g/dl (3.4-5.0) L 05/31/18 06:30 Current Medications Generic Name Dose Route Start Last Admin Trade Name Elq PRN Reason Stop Dose Admin Calcium Acetate 667 mg 05/29/18 17:30 05/30/18 18:01 Phoslo - PO 667 mg TIDCM CLARE Administration Heparin Sodium (Porcine) 5,000 unit 05/29/18 18:00 05/31/18 02:46 Heparin - SQ 5,000 unit Q8H-IV CLARE Administration Sodium Chloride 1,000 mls @ 125 mls/hr 05/29/18 10:15 05/31/18 02:47 Normal Saline - IV 125 mls/hr ASDIR CLARE Administration Labetalol HCl 200 mg 05/29/18 13:50 05/30/18 09:32 Normodyne - PO 200 mg BID PRN Administration HYPERTENSION Nifedipine 30 mg 05/29/18 22:00 05/30/18 21:35 Procardia Xl - PO 30 mg BID CLARE Administration Ondansetron HCl 4 mg 05/30/18 16:17 05/30/18 16:30 Zofran Injection IVPUSH 4 mg Q6H PRN Administration NAUSEA AND/OR VOMITING Sodium Bicarbonate 1,300 mg 05/30/18 16:16 05/30/18 21:35 Sodium Bicarbonate - PO 1,300 mg BID CLARE Administration Home Medications Medication Instructions Recorded NK [No Known Home Medication] 05/29/18 ASSESSMENT AND PLAN: Patient is a 32yo occitan speaking female with PMHx of CKD Stage IV (baseline Cr is around 2.0), HTN who presents with elevated BUN of 134 and creatinine of 9.0 . was sent to the ED. from Dr. sandhu's office for possible kideny biopsy. # Acute on Chronic kidney failure most likely due to Uncontrolled hypertension, improving 134/9.0-->117/8.2-->106/7.6 , continue IVF, will continue to monitor, on board. Perm a cath placement as per dr chang, if dialysis is needed. Dr. Duke on the case. # Hypertensive Emergency. blood pressure is controlled now, continue Procardia xl 30mg po bid, labetolol as per # Severe hypoCalcemia s/p Calcium gluconate IV , level 8.2 today # Normocytic Anemia will continue to monitor # Metabolic Acidosis on Bicarb. oral DVt Px: heparin sq NPO after midnight
[2018-05-31 08:29] LABS: ALK PHOS 68 U/L (45-117); ANION GAP 11 MMOL/L (8-16); BILIRUBIN,TOTAL 0.3 mg/dL (0.2-1); CHLORIDE 111 mmol/L (98-107); CO2 18 mmol/L (21-32); GLUCOSE,RANDOM 95 mg/dL (74-106); MAGNESIUM 1.9 mg/dL (1.8-2.4); PHOSPHOROUS 5.4 mg/dL (2.5-4.9); POTASSIUM 3.2 mmol/L (3.5-5.1); SGOT/AST 11 U/L (15-37); SGPT/ALT 12 U/L (13-61); SODIUM 140 mmol/L (136-145)
[2018-05-31] MEDS ORDERED: POTASSIUM CHLORIDE TABS 20 MEQ TABLET.ER (FP) PO ONE (08:46)
[2018-05-31] MEDS: CALCIUM ACETATE 667 MG CAPSULE (FP) PO SCH ×3 (08:58→17:35)
[2018-05-31] MEDS: NIFEdipine E.R. 30 MG TABLET (FP) PO SCH ×2 (09:02→22:47)
[2018-05-31] MEDS: SODIUM BICARBONATE 650 MG TABLET PO SCH ×2 (09:02→22:47)
[2018-05-31 09:24] LABS: BLOOD UREA NITROGEN 106 mg/dL (7-18); CREATININE 7.6 mg/dL (0.55-1.3)
[2018-05-31] MEDS ORDERED: CALCIUM GLUCONATE 10% - 1,000 MG/10 ML VIAL IVPB ONE (10:51)
[2018-05-31] MEDS ORDERED: CALCITRIOL 0.25 MCG CAPSULE (FP) PO SCH (11:00)
--- NOTE | 2018-05-31 13:52 | PN ---
Progress Note (short form) - Note Progress Note: Renal follow up for CORAL on CKD Pt seen and examined at the bedside awake and alert no acute complaints denies any flank pain or hematuira no sob, cp, abd pain, fever or chills making urine feels tired Vital Signs Temperature 98.9 F 05/31/18 05:00 Pulse Rate 91 H 05/31/18 09:00 Respiratory Rate 16 05/31/18 09:00 Blood Pressure 137/66 05/31/18 09:00 O2 Sat by Pulse Oximetry (%) 100 05/31/18 09:00 Intake & Output 05/28/18 05/29/18 05/30/18 05/31/18 23:59 23:59 23:59 23:59 Intake Total 704 203 9281 Balance 312 419 5019 Weight 66.86 kg 63.276 kg 61.28 kg NAD RRR, No M/R CTA, no rales or wheeze soft NT/ND No LE edema, clubbing or cyanosis no focal neurologic defects CBC, BMP 05/31/18 06:30 05/31/18 06:30 Current Medications Calcitriol (Rocaltrol -) 0.5 mcg PO DAILY [facility] Last Admin: 05/31/18 11:25 Dose: 0.5 mcg Calcium Acetate (Phoslo -) 667 mg PO TIDCM [facility] Last Admin: 05/31/18 13:05 Dose: Not Given Heparin Sodium (Porcine) (Heparin -) 5,000 unit SQ TID [facility] Sodium Chloride (Normal Saline -) 1,000 mls @ 125 mls/hr IV ASDIR [facility] Last Admin: 05/31/18 09:03 Dose: 125 mls/hr Labetalol HCl (Normodyne -) 200 mg PO BID PRN PRN Reason: HYPERTENSION Last Admin: 05/30/18 09:32 Dose: 200 mg Nifedipine (Procardia Xl -) 30 mg PO BID [facility] Last Admin: 05/31/18 09:02 Dose: 30 mg Ondansetron HCl (Zofran Injection) 4 mg IVPUSH Q6H PRN PRN Reason: NAUSEA AND/OR VOMITING Last Admin: 05/30/18 16:30 Dose: 4 mg Sodium Bicarbonate (Sodium Bicarbonate -) 1,300 mg PO BID [facility] Last Admin: 05/31/18 09:02 Dose: 1,300 mg 32 year old woman with hx of CKD (baseline Cr ~2), Hypertension who was sent to the ED by Dr. Madison Em for outpatient labs that showed BUN/Cr of 114/8.22. #Acute on Chronic Renal insufficiency #CKD stage 4 w/o nephrotic range proteinuria (prior work up showed negative AZAM , ANCA, Hepatitis profile) #Anemia #Uncontrolled Hypertension #Severe Hypocalcemia with Hyperphosphatemia #Metabolic acidosis Awaiting renal biopsy results, will adjust management/treatment based on results However pt w/o improvement in renal function with BP control and IVF given persistent metabolic acidosis. Hypocalcemia/Hyperphosphatemia will require renal replacement therapy Risks and benefits of dialysis discussed with the patient (used sterilization specialist # [id number]), pt is agree to proceed with dialysis can discontinue IVF Give calcium 2g IV for hypocalcemia Continue phos binder Start calcitriol 0.5mcg Daily Low phos, high protein diet Continue Nifedpine for BP continue sodium bicarb for now but can discontinue if serum bicarb improved to > 22 following dialysis for first dialysis session today, 2nd to be tomorrow will need outpatient HD unit placement Dose all meds for intermittent HD Will Jackson DO
[2018-05-31] MEDS ORDERED: SODIUM CHLORIDE 250 ML IV PRN ×4 (13:53→20:26)
[2018-05-31] MEDS ORDERED: HEPARIN NA (PORCINE) 5,000 UNITS/ML 1ML VIAL SQ SCH (14:00)
--- NOTE | 2018-05-31 14:06 | PN ---
Physical Exam: SUBJECTIVE: Patient seen and examined at bedside this morning. No acute events overnight. Patient has no new complaints. OBJECTIVE: Vital Signs Temperature 98.9 F 05/31/18 05:00 Pulse Rate 91 H 05/31/18 09:00 Respiratory Rate 16 05/31/18 09:00 Blood Pressure 137/66 05/31/18 09:00 O2 Sat by Pulse Oximetry (%) 100 05/31/18 09:00 GENERAL: The patient is awake, alert, and fully oriented, in no acute distress. HEAD: Normal with no signs of trauma. EYES: PERRLA, EOMI, sclera anicteric, conjunctiva clear. NECK: Trachea midline, full range of motion, supple. LUNGS: Breath sounds equal, clear to auscultation bilaterally. HEART: Regular rate and rhythm, S1, S2 without murmur, rub or gallop. ABDOMEN: Soft, nontender, nondistended, normoactive bowel sounds. EXTREMITIES: 2+ pulses, warm, well-perfused, no edema. NEUROLOGICAL: Cranial nerves II through XII grossly intact. Normal speech, normal gait. PSYCH: Normal mood, normal affect. SKIN: Warm, dry, normal turgor, no rashes or lesions noted Laboratory Results - last 24 hr 05/29/18 05/30/18 05/31/18 11:20 06:20 06:30 WBC 6.7 RBC 2.56 L Hgb 8.3 L Hct 23.6 L MCV 91.9 MCH 32.5 MCHC 35.3 RDW 12.5 Plt Count 166 MPV 8.5 Absolute Neuts (auto) 5.3 Neutrophils % 78.9 Lymphocytes % 13.5 D Monocytes % 5.6 Eosinophils % 1.3 Basophils % 0.7 Nucleated RBC % 0 Haptoglobin 151 Sodium Potassium Chloride Carbon Dioxide Anion Gap BUN Creatinine Creat Clearance w eGFR Random Glucose Calcium Phosphorus Magnesium Iron 119 TIBC 244 L Iron Saturation 49 Total Bilirubin AST ALT Alkaline Phosphatase Total Protein Albumin Urine Protein 73 H Ur Random Sodium 48 Urine Creatinine 66.0 H 05/31/18 06:30 WBC RBC Hgb Hct MCV MCH MCHC RDW Plt Count MPV Absolute Neuts (auto) Neutrophils % Lymphocytes % Monocytes % Eosinophils % Basophils % Nucleated RBC % Haptoglobin Sodium 140 Potassium 3.2 L Chloride 111 H Carbon Dioxide 18 L Anion Gap 11 BUN 106 H* Creatinine 7.6 H* Creat Clearance w eGFR 6.11 Random Glucose 95 Calcium 6.0 L* Phosphorus 5.4 H Magnesium 1.9 Iron TIBC Iron Saturation Total Bilirubin 0.3 AST 11 L ALT 12 L Alkaline Phosphatase 68 Total Protein 6.0 L Albumin 3.0 L Urine Protein Ur Random Sodium Urine Creatinine Active Medications Generic Name Dose Route Start Last Admin Trade Name Freq PRN Reason Stop Dose Admin Calcitriol 0.5 mcg 05/31/18 11:00 05/31/18 11:25 Rocaltrol - PO 0.5 mcg DAILY [facility] Administration Calcium Acetate 667 mg 05/29/18 17:30 05/31/18 13:05 Phoslo - PO Not Given TIDCM [facility] Epoetin Pritesh 4,000 unit 05/31/18 13:52 Epogen - IVPUSH 05/31/18 13:53 ONCE ONE Heparin Sodium (Porcine) 5,000 unit 05/31/18 14:00 Heparin - SQ TID [facility] Heparin Sodium (Porcine) 500 unit 06/01/18 06:00 Heparin - IVPUSH 06/01/18 06:01 ONCE ONE Sodium Chloride 1,000 mls @ 125 mls/hr 05/29/18 10:15 05/31/18 09:03 Normal Saline - IV 125 mls/hr ASDIR [facility] Administration Sodium Chloride 250 mls @ 3,000 mls/hr 05/31/18 13:52 Normal Saline - IV 06/01/18 13:52 PRN PRN Hypotension during Dialysis Sodium Chloride 250 mls @ 3,000 mls/hr 05/31/18 13:53 Normal Saline - IV 06/01/18 13:53 PRN PRN Hypotension during Dialysis Labetalol HCl 200 mg 05/29/18 13:50 05/30/18 09:32 Normodyne - PO 200 mg BID PRN Administration HYPERTENSION Nifedipine 30 mg 05/29/18 22:00 05/31/18 09:02 Procardia Xl - PO 30 mg BID [facility] Administration Ondansetron HCl 4 mg 05/30/18 16:17 05/30/18 16:30 Zofran Injection IVPUSH 4 mg Q6H PRN Administration NAUSEA AND/OR VOMITING Sodium Bicarbonate 1,300 mg 05/30/18 16:16 05/31/18 09:02 Sodium Bicarbonate - PO 1,300 mg BID [facility] Administration ASSESSMENT/PLAN: Patient is a 32 year old female with past medical history of CKD (baseline Cr 2 ) and HTN, sent by Dr. Em to the ED for abnormally elevated BUN/Cr of 114/ 8.22. #CORAL on CKD stage 4 -may be 2/2 HTN emergency vs ATN. vs glomerular disease -Renal US -Urine Pro:Cr 1.1 --> non-nephrotic range (<3.5) -FeNa: Eric 48, UCr 66 = 4.3% -Utox ordered -p-ANCA, c-ANCA -LDH -Renal biopsy done -Nephrology (Dr. Jackson) consulted. Recommendations appreciated. -given eGFR of 5 and lack of improvement s/p IVF, will need [employer] -Discontinue IVF -Increase sodium bicarb to 1300mg BID -Can discontinue if serum bicarb improve to >22 following dialysis -For first dialysis session today, second to be tomorrow -Continue Calcitriol 0.25mcg daily -Continue phos binder with meals -Will need outpatient HD unit placement. -Dose all meds for intermittent HD -Vascular surgery consulted. REcommendations appreciated. -For permacath today #Hypertension: chronic -Continue Nifedipine ER 30mg BID -Labetalol 200mg PO BID PRN for SBP >150 -Will need more control as outpatient #Hypocalcemia and Hyperphosphatemia -Calcitriol 0.25mcg daily -Phos binder with meals -IV 2g Calcium given #Normocytic Anemia -likely 2/2 CKD -Retic count -Iron studies #Metabolic acidosis -ABG on admission: 7.27/30.5/107/13.6 -sodium bicarbonate increased to 1300mg BID #FEN -Not on any standing fluids. -Hypokalemia, repleted -Routine bmp monitoring -Renal diet #Prophylaxis -Heparin 5000units sq tid #Disposition -full code -med surg Visit type - Emergency Visit Emergency Visit: Yes ED Registration Date: 05/29/18 Care time: The patient presented to the Emergency Department on the above date and was hospitalized for further evaluation of their emergent condition. - New Patient This patient is new to me today: No - Critical Care Critical Care patient: No
[2018-05-31] MEDS ORDERED: LIDOCAINE HCL 1%, 10 MG/ML (20ML VIAL) ONE (16:15)
[2018-05-31] MEDS ORDERED: HEPARIN NA (PORCINE) 5,000 UNITS/ML 1ML VIAL ONE (16:15)
[2018-05-31] MEDS ORDERED: PAPAVERINE HCL 30 MG/1 ML 10 ML VIAL NR ONE (16:15)
[2018-05-31] MEDS ORDERED: EPOETIN ALFA 2,000 UNIT/1 ML VIAL IVPUSH ONE ×2 (18:00→20:30)
--- NOTE | 2018-05-31 18:27 | CONSULT ---
Consult - text type - Consultation Consultation Note: Asked to provide dialysis access for this 32 year old woman with CKD in need of dialysis. She is right handed. Permacath placement planned. If chronic dialysis access needed vein mapping and creation of AV fistula will be planned.
[2018-05-31] MEDS ORDERED: ceFAZolin SODIUM 1 GM VIAL IVPB ONE (18:35)
[2018-05-31] MEDS ORDERED: ceFAZolin SODIUM 1 GM VIAL ONE (18:35)
[2018-05-31] MEDS ORDERED: MIDAZOLAM HCL 2 MG/2 ML SINGLE DOSE VIAL ONE (18:36)
[2018-05-31] MEDS ORDERED: METOPROLOL TARTRATE 5 MG/5 ML VIAL ONE (18:42)
[2018-05-31] MEDS ORDERED: LIDOCAINE HCL 1%, 10 MG/ML (50 mL VIAL) IJ ONE (18:44)
--- NOTE | 2018-05-31 19:05 | OP ---
Operative Note - Note: Operative Date: 05/31/18 Pre-Operative Diagnosis: Renal failure Operation: Placement Permacath Findings: Patent right IJV Implants: 19 cm Permacath Post-Operative Diagnosis: Same as Pre-op Surgeon: Moe Rebollar Anesthesiologist/[employer] BOSS: Deniz Hernandez Anesthesia: Fractional
[2018-05-31] MEDS ORDERED: ONDANSETRON 4 MG/2 ML VIAL IVPUSH PRN (19:31)
[2018-05-31] MEDS: LABETALOL HCL 200 MG TABLET (FP) PO PRN (22:47)
[2018-05-31] MEDS: ACETAMINOPHEN 325 MG TABLET (FP) PO PRN (23:13)
[2018-05-31] MEDS: oxyCODONE HCL 5 MG TABLET PO PRN (23:14)
--- NOTE | 2018-06-01 02:43 | PN ---
Progress Note (short form) - Note Progress Note: Patient is comfortable with no acute distress, no nausea or vomiting.feeling better. Vital Signs Temperature 98.5 F 06/01/18 05:42 Pulse Rate 75 06/01/18 05:42 Respiratory Rate 17 06/01/18 05:42 Blood Pressure 135/75 06/01/18 05:42 O2 Sat by Pulse Oximetry (%) 99 05/31/18 21:00 GENERAL: Awake, alert, and fully oriented, in no acute distress. HEAD: Normal with no signs of trauma. EYES: Pupils equal, round and reactive to light, extraocular movements intact, sclera anicteric, conjunctiva clear. EARS, NOSE, THROAT: Ears normal, Moist mucous membranes. NECK: Normal range of motion, supple without lymphadenopathy, JVD, or masses.positive for shiley catheter on the chest. LUNGS: Breath sounds equal, clear to auscultation bilaterally. No wheezes, and no crackles. . HEART: Regular rate and rhythm, normal S1 and S2 without murmur, rub or gallop. ABDOMEN: Soft, nontender, not distended, normoactive bowel sounds, no guarding, no rebound, no masses. EXTREMITIES: 2+ pulses, warm, well-perfused. No cyanosis. No clubbing. No peripheral edema. NEUROLOGICAL: Cranial nerves II-XII intact. Normal speech. Normal gait. PSYCHIATRIC: Cooperative. Good eye contact. Appropriate mood and affect. SKIN: Warm, dry, normal turgor, no rashes or lesions noted, normal capillary refill. CBCD WBC 6.7 K/mm3 (4.0-10.0) 05/31/18 06:30 RBC 2.56 M/mm3 (3.60-5.2) L 05/31/18 06:30 Hgb 8.3 GM/dL (10.7-15.3) L 05/31/18 06:30 Hct 23.6 % (32.4-45.2) L 05/31/18 06:30 MCV 91.9 fl (80-96) 05/31/18 06:30 MCHC 35.3 g/dl (32.0-36.0) 05/31/18 06:30 RDW 12.5 % (11.6-15.6) 05/31/18 06:30 Plt Count 166 K/MM3 (134-434) 05/31/18 06:30 MPV 8.5 fl (7.5-11.1) 05/31/18 06:30 CMP Sodium 140 mmol/L (136-145) 05/31/18 06:30 Potassium 3.2 mmol/L (3.5-5.1) L 05/31/18 06:30 Chloride 111 mmol/L (98-107) H 05/31/18 06:30 Carbon Dioxide 18 mmol/L (21-32) L 05/31/18 06:30 Anion Gap 11 MMOL/L (8-16) 05/31/18 06:30 BUN 106 mg/dL (7-18) H* 05/31/18 06:30 Creatinine 7.6 mg/dL (0.55-1.3) H* 05/31/18 06:30 Creat Clearance w eGFR 6.11 (>60) 05/31/18 06:30 Random Glucose 95 mg/dL (74-106) 05/31/18 06:30 Calcium 6.0 mg/dL (8.5-10.1) L* 05/31/18 06:30 Total Bilirubin 0.3 mg/dL (0.2-1) 05/31/18 06:30 AST 11 U/L (15-37) L 05/31/18 06:30 ALT 12 U/L (13-61) L 05/31/18 06:30 Alkaline Phosphatase 68 U/L (45-117) 05/31/18 06:30 Total Protein 6.0 g/dl (6.4-8.2) L 05/31/18 06:30 Albumin 3.0 g/dl (3.4-5.0) L 05/31/18 06:30 Current Medications Generic Name Dose Route Start Last Admin Trade Name Freq PRN Reason Stop Dose Admin Acetaminophen 325 mg 05/31/18 19:18 05/31/18 23:13 Tylenol - PO 06/03/18 19:17 325 mg Q4H PRN Administration PAIN SCALE 1-5 Calcitriol 0.5 mcg 06/01/18 10:00 Rocaltrol - PO DAILY [facility] Calcium Acetate 667 mg 06/01/18 08:00 Phoslo - PO TIDCM [facility] Fentanyl 25 mcg 05/31/18 19:05 Sublimaze Injection - IVPUSH Q5M PRN PAIN-PACU ORDER X 4 DOSES ONLY Heparin Sodium (Porcine) 5,000 unit 05/31/18 22:00 05/31/18 22:47 Heparin - SQ 5,000 unit TID [facility] Administration Heparin Sodium (Porcine) 500 unit 06/01/18 06:00 Heparin - IVPUSH 06/01/18 06:01 ONCE ONE Sodium Chloride 250 mls @ 3,000 mls/hr 05/31/18 20:26 Normal Saline - IV 06/01/18 20:25 PRN PRN Hypotension during Dialysis Sodium Chloride 1,000 mls @ 125 mls/hr 05/31/18 19:31 05/31/18 22:45 Normal Saline - IV 125 mls/hr ASDIR [facility] Administration Labetalol HCl 200 mg 05/31/18 19:31 05/31/18 22:47 Normodyne - PO 200 mg BID PRN Administration HYPERTENSION Nifedipine 30 mg 05/31/18 22:00 05/31/18 22:47 Procardia Xl - PO 30 mg BID [facility] Administration Ondansetron HCl 4 mg 05/31/18 19:31 05/31/18 22:47 Zofran Injection IVPUSH 4 mg Q6H PRN Administration NAUSEA AND/OR VOMITING Oxycodone HCl 5 mg 05/31/18 19:18 05/31/18 23:14 Roxicodone - PO 5 mg Q4H PRN Administration PAIN SCALE 1-5 Sodium Bicarbonate 1,300 mg 05/31/18 22:00 05/31/18 22:47 Sodium Bicarbonate - PO 1,300 mg BID [facility] Administration Home Medications Medication Instructions Recorded NK [No Known Home Medication] 05/29/18 ASSESSMENT AND PLAN: Patient is a 32yo hungarian speaking female with PMHx of CKD Stage IV (baseline Cr is around 2.0), HTN who presents with elevated BUN of 134 and creatinine of 9.0 . was sent to the ED. from Dr. sandhu's office for possible kideny biopsy. #POD1 s/p Permacath. # Acute on Chronic kidney failure most likely due to Uncontrolled hypertension, improving 134/9.0-->117/8.2-->106/7.6 , continue IVF, will continue to monitor, on board. Perm a cath placement is placed last night by . # Hypertensive Emergency. blood pressure is better controlled now, continue Procardia xl 30mg po bid, labetolol as per # Severe hypoCalcemia s/p Calcium gluconate IV , level 8.2 today # Normocytic Anemia will continue to monitor # Metabolic Acidosis on Bicarb. oral DVt Px: heparin sq Visit type - Emergency Visit Emergency Visit: Yes ED Registration Date: 05/29/18 Care time: The patient presented to the Emergency Department on the above date and was hospitalized for further evaluation of their emergent condition. - New Patient This patient is new to me today: No - Critical Care Critical Care patient: No - Discharge Referral Referred to [facility] No
[2018-06-01] MEDS: HEPARIN NA (PORCINE) 5,000 UNITS/ML 1ML VIAL SQ SCH ×3 (05:38→21:30)
[2018-06-01] MEDS ORDERED: HEPARIN NA (PORCINE) 5,000 UNITS/ML 1ML VIAL IVPUSH ONE ×2 (06:00)
[2018-06-01] MEDS: CALCIUM ACETATE 667 MG CAPSULE (FP) PO SCH ×4 (08:19→17:14)
[2018-06-01] MEDS: SODIUM CHLORIDE 1,000 ML IV SCH (08:19)
[2018-06-01] MEDS: SODIUM BICARBONATE 650 MG TABLET PO SCH ×2 (09:33→21:30)
[2018-06-01] MEDS: NIFEdipine E.R. 30 MG TABLET (FP) PO SCH ×2 (09:33→21:30)
[2018-06-01] MEDS: CALCITRIOL 0.25 MCG CAPSULE (FP) PO SCH (09:33)
[2018-06-01 11:06] LABS: HEMATOCRIT 23.7 % (32.4-45.2); HEMOGLOBIN 8.3 GM/dL (10.7-15.3); MCH 31.9 pg (25.7-33.7); MCHC 34.8 g/dl (32.0-36.0); MEAN CELL VOLUME 91.7 fl (80-96); MEAN PLT VOLUME 7.5 fl (7.5-11.1); PLATELET COUNT 161 K/MM3 (134-434); RBC 2.59 M/mm3 (3.60-5.2); RDW 12.8 % (11.6-15.6)
[2018-06-01 11:23] LABS: RETICULOCYTES 1.06 % (0.5-1.5)
[2018-06-01 11:49] LABS: ALK PHOS 67 U/L (45-117); ANION GAP 9 MMOL/L (8-16); BILIRUBIN,TOTAL 0.4 mg/dL (0.2-1); BLOOD UREA NITROGEN 57 mg/dL (7-18); CHLORIDE 108 mmol/L (98-107); CO2 25 mmol/L (21-32); CREATININE 5.4 mg/dL (0.55-1.3); GLUCOSE,RANDOM 99 mg/dL (74-106); PHOSPHOROUS 3.3 mg/dL (2.5-4.9); POTASSIUM 3.7 mmol/L (3.5-5.1); SGOT/AST 17 U/L (15-37); SGPT/ALT 12 U/L (13-61); SODIUM 143 mmol/L (136-145); TOT PROT 6.2 g/dl (6.4-8.2)
--- NOTE | 2018-06-01 14:44 | PN ---
Progress Note (short form) - Note Progress Note: 32 year old woman with hx of CKD (baseline Cr ~2), Hypertension outpatient labs BUN/Cr of 114/8.22. started on dialysis yesterday seen on dialysis today Active Medications Acetaminophen (Tylenol -) 325 mg PO Q4H PRN PRN Reason: PAIN SCALE 1-5 Stop: 06/03/18 19:17 Last Admin: 05/31/18 23:13 Dose: 325 mg Calcitriol (Rocaltrol -) 0.5 mcg PO DAILY [facility] Last Admin: 06/01/18 09:33 Dose: 0.5 mcg Calcium Acetate (Phoslo -) 667 mg PO TIDCM [facility] Last Admin: 06/01/18 14:00 Dose: 667 mg Fentanyl (Sublimaze Injection -) 25 mcg IVPUSH Q5M PRN PRN Reason: PAIN-PACU ORDER X 4 DOSES ONLY Heparin Sodium (Porcine) (Heparin -) 5,000 unit SQ TID [facility] Last Admin: 06/01/18 14:00 Dose: 5,000 unit Sodium Chloride (Normal Saline -) 250 mls @ 3,000 mls/hr IV PRN PRN PRN Reason: Hypotension during Dialysis Stop: 06/01/18 20:25 Sodium Chloride (Normal Saline -) 1,000 mls @ 125 mls/hr IV ASDIR [facility] Last Admin: 06/01/18 08:19 Dose: 125 mls/hr Labetalol HCl (Normodyne -) 200 mg PO BID PRN PRN Reason: HYPERTENSION Last Admin: 05/31/18 22:47 Dose: 200 mg Nifedipine (Procardia Xl -) 30 mg PO BID [facility] Last Admin: 06/01/18 09:33 Dose: 30 mg Ondansetron HCl (Zofran Injection) 4 mg IVPUSH Q6H PRN PRN Reason: NAUSEA AND/OR VOMITING Last Admin: 05/31/18 22:47 Dose: 4 mg Oxycodone HCl (Roxicodone -) 5 mg PO Q4H PRN PRN Reason: PAIN SCALE 1-5 Last Admin: 05/31/18 23:14 Dose: 5 mg Sodium Bicarbonate (Sodium Bicarbonate -) 1,300 mg PO BID [facility] Last Admin: 06/01/18 09:33 Dose: 1,300 mg Last Vital Signs Temp Pulse Resp BP Pulse Ox 98.5 F 80 18 158/98 99 06/01/18 13:58 06/01/18 13:58 06/01/18 13:25 06/01/18 13:58 06/01/18 09:00 seen while on dialysis pre had bp very high denies any malaise or gi sx Lungs clear Heart reg Abd sodt ext no edema IMP -Acute on Chronic Renal insufficiency -CKD stage 4 w/o nephrotic range proteinuria (prior work up showed negative AZAM , ANCA, Hepatitis profile) -Anemia -Uncontrolled Hypertension -Severe Hypocalcemia with Hyperphosphatemia -Metabolic acidosis Plan- better BP control HD on Sunday
[2018-06-01] MEDS: LABETALOL HCL 200 MG TABLET (FP) PO PRN (15:54)
[2018-06-02] MEDS: ACETAMINOPHEN 325 MG TABLET (FP) PO PRN ×2 (01:00→21:44)
[2018-06-02] MEDS: oxyCODONE HCL 5 MG TABLET PO PRN ×2 (01:01→21:45)
[2018-06-02 04:18] LABS: HBsAG SCREEN Negative (Negative)
[2018-06-02] MEDS: HEPARIN NA (PORCINE) 5,000 UNITS/ML 1ML VIAL SQ SCH ×3 (06:04→21:43)
[2018-06-02] MEDS: CALCIUM ACETATE 667 MG CAPSULE (FP) PO SCH ×3 (08:40→17:06)
[2018-06-02] MEDS ORDERED: PT OWN MED DRAWER 7, Y5N ONE (09:51)
[2018-06-02] MEDS: SODIUM BICARBONATE 650 MG TABLET PO SCH ×2 (09:57→21:44)
[2018-06-02] MEDS: NIFEdipine E.R. 30 MG TABLET (FP) PO SCH ×2 (09:57→21:44)
[2018-06-02] MEDS: CALCITRIOL 0.25 MCG CAPSULE (FP) PO SCH (09:57)
--- NOTE | 2018-06-02 11:11 | PN ---
Progress Note, Physician Chief Complaint: Patient is a 32 year old female with past medical history of CKD (baseline Cr 2 ) and HTN, sent by Dr. Em to the ED for abnormally elevated BUN/Cr of 114/ 8.22. - Current Medication List Current Medications: Active Medications Acetaminophen (Tylenol -) 325 mg PO Q4H PRN PRN Reason: PAIN SCALE 1-5 Stop: 06/03/18 19:17 Last Admin: 06/02/18 01:00 Dose: 325 mg Calcitriol (Rocaltrol -) 0.5 mcg PO DAILY [facility] Last Admin: 06/02/18 09:57 Dose: 0.5 mcg Calcium Acetate (Phoslo -) 667 mg PO TIDCM [facility] Last Admin: 06/02/18 08:40 Dose: 667 mg Fentanyl (Sublimaze Injection -) 25 mcg IVPUSH Q5M PRN PRN Reason: PAIN-PACU ORDER X 4 DOSES ONLY Heparin Sodium (Porcine) (Heparin -) 5,000 unit SQ TID [facility] Last Admin: 06/02/18 06:04 Dose: 5,000 unit Labetalol HCl (Normodyne -) 200 mg PO BID PRN PRN Reason: HYPERTENSION Last Admin: 06/01/18 15:54 Dose: 200 mg Nifedipine (Procardia Xl -) 30 mg PO BID [facility] Last Admin: 06/02/18 09:57 Dose: 30 mg Ondansetron HCl (Zofran Injection) 4 mg IVPUSH Q6H PRN PRN Reason: NAUSEA AND/OR VOMITING Last Admin: 05/31/18 22:47 Dose: 4 mg Oxycodone HCl (Roxicodone -) 5 mg PO Q4H PRN PRN Reason: PAIN SCALE 1-5 Last Admin: 06/02/18 01:01 Dose: 5 mg Sodium Bicarbonate (Sodium Bicarbonate -) 1,300 mg PO BID [facility] Last Admin: 06/02/18 09:57 Dose: 1,300 mg - Objective Vital Signs: Vital Signs Temperature 99.1 F 06/02/18 08:40 Pulse Rate 100 H 06/02/18 08:40 Respiratory Rate 18 06/02/18 08:40 Blood Pressure 134/71 06/02/18 08:40 O2 Sat by Pulse Oximetry (%) 99 06/01/18 21:00 Constitutional: Yes: Well Nourished, No Distress, Calm Eyes: Yes: WNL, Conjunctiva Clear, EOM Intact HENT: Yes: WNL, Atraumatic, Normocephalic Neck: Yes: WNL, Supple, Trachea Midline Cardiovascular: Yes: WNL, Regular Rate and Rhythm, S1, S2 Respiratory: Yes: WNL, Regular, CTA Bilaterally Gastrointestinal: Yes: WNL, Normal Bowel Sounds, Soft Musculoskeletal: Yes: WNL Extremities: Yes: WNL Edema: No Integumentary: Yes: WNL Neurological: Yes: WNL, Alert, Oriented ...Motor Strength: WNL Psychiatric: Yes: WNL, Alert, Oriented Labs: CBC, BMP 06/01/18 10:50 06/01/18 10:50 INR, PTT INR 1.08 (0.83-1.09) 05/30/18 06:20 Assessment/Plan #CORAL on CKD stage 4 -may be 2/2 HTN emergency vs ATN. vs glomerular disease -Renal US -Urine Pro:Cr 1.1 --> non-nephrotic range (<3.5) -FeNa: Eric 48, UCr 66 = 4.3% -Utox ordered -p-ANCA, c-ANCA -LDH -Renal biopsy done -Nephrology (Dr. Jackson) consulted. Recommendations appreciated. -given eGFR of 5 and lack of improvement s/p IVF, will need [employer] -Discontinue IVF -Increase sodium bicarb to 1300mg BID -Can discontinue if serum bicarb improve to >22 following dialysis -For first dialysis session today, second to be tomorrow -Continue Calcitriol 0.25mcg daily -Continue phos binder with meals -Will need outpatient HD unit placement. -Dose all meds for intermittent HD -Vascular surgery consulted. REcommendations appreciated. -For permacath today #Hypertension: chronic -Continue Nifedipine ER 30mg BID -Labetalol 200mg PO BID PRN for SBP >150 -Will need more control as outpatient #Hypocalcemia and Hyperphosphatemia -Calcitriol 0.25mcg daily -Phos binder with meals -IV 2g Calcium given #Normocytic Anemia -likely 2/2 CKD -Retic count -Iron studies #Metabolic acidosis -ABG on admission: 7.27/30.5/107/13.6 -sodium bicarbonate increased to 1300mg BID #FEN -Not on any standing fluids. -Hypokalemia, repleted -Routine bmp monitoring -Renal diet #Prophylaxis -Heparin 5000units sq tid #Disposition -full code -med surg
--- NOTE | 2018-06-02 14:19 | PN ---
Progress Note (short form) - Note Progress Note: 32 year old woman with hx of CKD (baseline Cr ~2), Hypertension outpatient labs BUN/Cr of 114/8.22. seen while on dialysis yesterday pre had bp very high denies any malaise or gi sx Current Medications Acetaminophen (Tylenol -) 325 mg PO Q4H PRN PRN Reason: PAIN SCALE 1-5 Stop: 06/03/18 19:17 Last Admin: 06/02/18 01:00 Dose: 325 mg Calcitriol (Rocaltrol -) 0.5 mcg PO DAILY [facility] Last Admin: 06/02/18 09:57 Dose: 0.5 mcg Calcium Acetate (Phoslo -) 667 mg PO TIDCM [facility] Last Admin: 06/02/18 12:26 Dose: 667 mg Fentanyl (Sublimaze Injection -) 25 mcg IVPUSH Q5M PRN PRN Reason: PAIN-PACU ORDER X 4 DOSES ONLY Heparin Sodium (Porcine) (Heparin -) 5,000 unit SQ TID [facility] Last Admin: 06/02/18 14:04 Dose: Not Given Labetalol HCl (Normodyne -) 200 mg PO BID PRN PRN Reason: HYPERTENSION Last Admin: 06/01/18 15:54 Dose: 200 mg Nifedipine (Procardia Xl -) 30 mg PO BID [facility] Last Admin: 06/02/18 09:57 Dose: 30 mg Ondansetron HCl (Zofran Injection) 4 mg IVPUSH Q6H PRN PRN Reason: NAUSEA AND/OR VOMITING Last Admin: 05/31/18 22:47 Dose: 4 mg Oxycodone HCl (Roxicodone -) 5 mg PO Q4H PRN PRN Reason: PAIN SCALE 1-5 Last Admin: 06/02/18 01:01 Dose: 5 mg Sodium Bicarbonate (Sodium Bicarbonate -) 1,300 mg PO BID [facility] Last Admin: 06/02/18 09:57 Dose: 1,300 mg Last Vital Signs Temp Pulse Resp BP Pulse Ox 98.1 F 94 H 18 133/87 99 06/02/18 13:39 06/02/18 13:39 06/02/18 08:40 06/02/18 13:39 06/01/18 21:00 Lungs clear Heart reg Abd sodt ext no edema CBC, BMP 06/01/18 10:50 06/01/18 10:50 IMP -Acute on Chronic Renal insufficiency -CKD stage 4 w/o nephrotic range proteinuria (prior work up showed negative AZAM , ANCA, Hepatitis profile) -Anemia -Hypertension better controlled -Severe Hypocalcemia with Hyperphosphatemia -Metabolic acidosis Plan- better BP control HD on Sunday
[2018-06-03] MEDS: HEPARIN NA (PORCINE) 5,000 UNITS/ML 1ML VIAL SQ SCH ×3 (06:16→21:40)
--- NOTE | 2018-06-03 08:49 | PN ---
Progress Note, Physician History of Present Illness: 32 year old female with past medical history of CKD (baseline Cr 2) and HTN, sent by Dr. Em to the ED for abnormally elevated BUN/Cr of 114/8.22. now on HD - Current Medication List Current Medications: Active Medications Acetaminophen (Tylenol -) 325 mg PO Q4H PRN PRN Reason: PAIN SCALE 1-5 Stop: 06/03/18 19:17 Last Admin: 06/02/18 21:44 Dose: 325 mg Calcitriol (Rocaltrol -) 0.5 mcg PO DAILY [facility] Last Admin: 06/02/18 09:57 Dose: 0.5 mcg Calcium Acetate (Phoslo -) 667 mg PO TIDCM [facility] Last Admin: 06/02/18 17:06 Dose: 667 mg Fentanyl (Sublimaze Injection -) 25 mcg IVPUSH Q5M PRN PRN Reason: PAIN-PACU ORDER X 4 DOSES ONLY Heparin Sodium (Porcine) (Heparin -) 5,000 unit SQ TID [facility] Last Admin: 06/03/18 06:16 Dose: 5,000 unit Sodium Chloride (Normal Saline -) 250 mls @ 3,000 mls/hr IV PRN PRN PRN Reason: Hypotension during Dialysis Stop: 06/03/18 18:36 Labetalol HCl (Normodyne -) 200 mg PO BID PRN PRN Reason: HYPERTENSION Last Admin: 06/01/18 15:54 Dose: 200 mg Nifedipine (Procardia Xl -) 30 mg PO BID [facility] Last Admin: 06/02/18 21:44 Dose: 30 mg Ondansetron HCl (Zofran Injection) 4 mg IVPUSH Q6H PRN PRN Reason: NAUSEA AND/OR VOMITING Last Admin: 05/31/18 22:47 Dose: 4 mg Oxycodone HCl (Roxicodone -) 5 mg PO Q4H PRN PRN Reason: PAIN SCALE 1-5 Last Admin: 06/02/18 21:45 Dose: 5 mg Sodium Bicarbonate (Sodium Bicarbonate -) 1,300 mg PO BID [facility] Last Admin: 06/02/18 21:44 Dose: 1,300 mg - Objective Vital Signs: Vital Signs Temperature 98.5 F 06/03/18 05:52 Pulse Rate 83 06/03/18 05:52 Respiratory Rate 20 06/03/18 05:52 Blood Pressure 149/72 01/21/19 05:52 O2 Sat by Pulse Oximetry (%) 99 06/02/18 21:00 Young F not in distress HEENT: Mm moist, no anemia, PERRLA EOMI NECK: No JVD No Bruit CHEST: CTA B/L CVS; S1S2 R no m/g/r AND: No distention non tender Bs + EXT; trace edema, Pulses + DIGITAL FORENSICS INVESTIGATOR: AOX3 non focal Labs: CBC, BMP 06/01/18 10:50 06/01/18 10:50 INR, PTT INR 1.08 (0.83-1.09) 05/30/18 06:20 Problem List - Problems (1) Acute on chronic renal failure Assessment/Plan: On HD Metabilc abnormality improved Code(s): N17.9 - ACUTE KIDNEY FAILURE, UNSPECIFIED; N18.9 - CHRONIC KIDNEY DISEASE, UNSPECIFIED Qualifiers: Acute renal failure type: unspecified Chronic kidney disease stage: stage 4 (severe) Qualified Code(s): N17.9 - Acute kidney failure, unspecified; N18.4 - Chronic kidney disease, stage 4 (severe) (2) Hypertension Assessment/Plan: Well controlled cont current meds Code(s): I10 - ESSENTIAL (PRIMARY) HYPERTENSION Qualifiers: Hypertension type: unspecified Qualified Code(s): I10 - Essential (primary ) hypertension (3) Metabolic acidosis Assessment/Plan: Resolved on HD F/.U BMP Code(s): E87.2 - ACIDOSIS (4) Hypocalcemia Assessment/Plan: F/U BMP if needed will replete after HD Code(s): E83.51 - HYPOCALCEMIA
--- NOTE | 2018-06-03 10:22 | PN ---
Progress Note (short form) - Note Progress Note: Renal follow up for CORAL on CKD Pt seen and examined during dialysis complains of lower extremity cramps BP stable, catheter with good flow no sob, cp, abd pain No N/V/D Vital Signs Temperature 98.1 F 06/03/18 08:45 Pulse Rate 73 06/03/18 09:50 Respiratory Rate 18 06/03/18 09:50 Blood Pressure 134/72 06/03/18 09:50 O2 Sat by Pulse Oximetry (%) 99 06/02/18 21:00 Intake & Output 05/31/18 06/01/18 06/02/18 06/03/18 23:59 23:59 23:59 23:59 Intake Total 3200 2450 775 Balance 3200 2450 775 Weight 61.235 kg 60.413 kg 60.781 kg NAD RRR, No M/R CTA, no rales or wheeze soft NT/ND No LE edema, clubbing or cyanosis CBC, BMP 06/01/18 10:50 06/01/18 10:50 Current Medications Acetaminophen (Tylenol -) 325 mg PO Q4H PRN PRN Reason: PAIN SCALE 1-5 Stop: 06/03/18 19:17 Last Admin: 06/02/18 21:44 Dose: 325 mg Calcitriol (Rocaltrol -) 0.5 mcg PO DAILY [facility] Last Admin: 06/02/18 09:57 Dose: 0.5 mcg Calcium Acetate (Phoslo -) 667 mg PO TIDCM [facility] Last Admin: 06/02/18 17:06 Dose: 667 mg Fentanyl (Sublimaze Injection -) 25 mcg IVPUSH Q5M PRN PRN Reason: PAIN-PACU ORDER X 4 DOSES ONLY Heparin Sodium (Porcine) (Heparin -) 5,000 unit SQ TID [facility] Last Admin: 06/03/18 06:16 Dose: 5,000 unit Sodium Chloride (Normal Saline -) 250 mls @ 3,000 mls/hr IV PRN PRN PRN Reason: Hypotension during Dialysis Stop: 06/03/18 18:36 Labetalol HCl (Normodyne -) 200 mg PO BID PRN PRN Reason: HYPERTENSION Last Admin: 06/01/18 15:54 Dose: 200 mg Nifedipine (Procardia Xl -) 30 mg PO BID [facility] Last Admin: 06/02/18 21:44 Dose: 30 mg Ondansetron HCl (Zofran Injection) 4 mg IVPUSH Q6H PRN PRN Reason: NAUSEA AND/OR VOMITING Last Admin: 05/31/18 22:47 Dose: 4 mg Oxycodone HCl (Roxicodone -) 5 mg PO Q4H PRN PRN Reason: PAIN SCALE 1-5 Last Admin: 06/02/18 21:45 Dose: 5 mg 32 year old woman with hx of CKD (baseline Cr ~2), Hypertension who was sent to the ED by Dr. Madison Em for outpatient labs that showed BUN/Cr of 114/8.22. #Acute on Chronic Renal insufficiency #CKD stage 4 w/o nephrotic range proteinuria (prior work up showed negative AZAM , ANCA, Hepatitis profile) #Anemia #Uncontrolled Hypertension #Severe Hypocalcemia with Hyperphosphatemia #Metabolic acidosis Pt tolerating dialysis well today Biopsy results still pending todays labs are still pending but pt w/o signs of renal function improving thus far Continue Calcitrol and Phoslo Renal diet will need outpatient dialysis unit placement BP well controlled d/c sodium bicarb Will Jackson DO
[2018-06-03] MEDS ORDERED: SODIUM CHLORIDE 250 ML IV PRN (11:00)
[2018-06-03] MEDS ORDERED: EPOETIN ALFA 20,000 UNIT/1 ML VIAL IVPUSH ONE (11:00)
[2018-06-03 12:13] LABS: HEMATOCRIT 24.1 % (32.4-45.2); HEMOGLOBIN 8.4 GM/dL (10.7-15.3); MCH 32.4 pg (25.7-33.7); MCHC 34.9 g/dl (32.0-36.0); MEAN CELL VOLUME 92.7 fl (80-96); MEAN PLT VOLUME 8.1 fl (7.5-11.1); PLATELET COUNT 151 K/MM3 (134-434); RDW 12.6 % (11.6-15.6); WHITE BLOOD COUNT 4.4 K/mm3 (4.0-10.0)
[2018-06-03 13:07] LABS: ANION GAP 4 MMOL/L (8-16); BLOOD UREA NITROGEN 12 mg/dL (7-18); CALCIUM 8.6 mg/dL (8.5-10.1); CHLORIDE 100 mmol/L (98-107); CO2 35 mmol/L (21-32); CREATININE 1.6 mg/dL (0.55-1.3); GLUCOSE,RANDOM 118 mg/dL (74-106); POTASSIUM 3.5 mmol/L (3.5-5.1); SODIUM 139 mmol/L (136-145)
[2018-06-03] MEDS: CALCITRIOL 0.25 MCG CAPSULE (FP) PO SCH (14:03)
[2018-06-03] MEDS: NIFEdipine E.R. 30 MG TABLET (FP) PO SCH ×2 (14:04→21:40)
[2018-06-03] MEDS: CALCIUM ACETATE 667 MG CAPSULE (FP) PO SCH ×3 (14:05→20:07)
[2018-06-03 22:08] LABS: HBSAG SCREEN Negative (Negative); HEP A AB, IGM Negative (Negative); HEP B CORE AB, TOT Negative (Negative)
[2018-06-04] MEDS: HEPARIN NA (PORCINE) 5,000 UNITS/ML 1ML VIAL SQ SCH ×3 (06:31→21:45)
[2018-06-04 07:34] LABS: ANION GAP 8 MMOL/L (8-16); BLOOD UREA NITROGEN 32 mg/dL (7-18); CALCIUM 7.8 mg/dL (8.5-10.1); CHLORIDE 103 mmol/L (98-107); CO2 30 mmol/L (21-32); CREATININE 4.6 mg/dL (0.55-1.3); GLUCOSE,RANDOM 88 mg/dL (74-106); PHOSPHOROUS 3.6 mg/dL (2.5-4.9); POTASSIUM 4.1 mmol/L (3.5-5.1); SODIUM 140 mmol/L (136-145)
[2018-06-04] MEDS: CALCITRIOL 0.25 MCG CAPSULE (FP) PO SCH (09:44)
[2018-06-04] MEDS: CALCIUM ACETATE 667 MG CAPSULE (FP) PO SCH ×3 (09:44→17:31)
[2018-06-04] MEDS: NIFEdipine E.R. 30 MG TABLET (FP) PO SCH ×2 (09:45→21:45)
--- NOTE | 2018-06-04 14:27 | SPEC ---
DATE OF OPERATION: 05/31/2018 OPERATION: Insertion of right-sided Perma-Cath. SURGEON: Moe Monreal MD ANESTHESIA: Fractional. ANESTHESIOLOGIST: Deniz Hernandez MD PROCEDURE: Following intravenous sedation, the patient was placed in the Trendelenburg position. The neck and chest were prepped with Betadine solution. Xylocaine 1% was infiltrated subcutaneously in the neck and the internal jugular vein cannulated with a fine needle. A fine flexible wire was passed proximally under fluoroscopic guidance into the superior vena cava. The tract around the wire was dilated and the wire was exchanged for a larger diameter wire. Additional Xylocaine was infiltrated on the chest wall and a stab wound made beneath the clavicle. With the aid of a tunneler, the catheter was passed from chest to neck to exit next the wire. The tract around the wire was again dilated and the introducer placed into the superior vena cava. The wire and the dilator were removed. The Perma-Cath was then passed through the introducer and the tip positioned in the right atrium. The introducer was peeled away, leaving the catheter in place. Each lumen was aspirated for blood and flushed with saline and heparin solution. The neck wound was closed with a subcuticular suture of 4-0 Vicryl and the catheter was sutured to the skin at the exit site with 3-0 nylon. Sterile dressings were applied and the patient was taken to the recovery room for a chest x-ray. MOE MONREAL M.D. [id number]
--- NOTE | 2018-06-04 15:17 | PN ---
Teaching Attending Note Name of Resident: Isela Rivera ATTENDING PHYSICIAN STATEMENT I saw and evaluated the patient. I reviewed the resident's note and discussed the case with the resident. I agree with the resident's findings and plan as documented. SUBJECTIVE:Asymptomatic OBJECTIVE: Vital Signs Period Temp Pulse Resp BP Sys/Patel Pulse Ox Last 24 Hr 98.1 F-99.0 F 78-99 18-20 116-137/70-80 98-99 Young F not in distress HEENT: Mm moist, no anemia, PERRLA EOMI NECK: No JVD No Bruit CHEST: CTA B/L CVS; S1S2 R no m/g/r AND: No distention non tender Bs + EXT; trace edema, Pulses + AUTOMOBILE BODY REPAIR SUPERVISOR: AOX3 non focal ASSESSMENT AND PLAN: 32 yrs old F with HTN, CKD admitted with worsening renal functions on HD s/p Renal biopsy reported awaited , hemodynamically stable Plan; Cont HD as per Renal F/U Biopsy result shows FSGN > 60% nephrons, need ocean transportation intermediary HD, awaiting out patient HD placement Hypcalcemia resolved F/U Phosphate PTH and VIt D Level. HTN: Cont current therapy. Problem List - Problems (1) Acute on chronic renal failure Code(s): N17.9 - ACUTE KIDNEY FAILURE, UNSPECIFIED; N18.9 - CHRONIC KIDNEY DISEASE, UNSPECIFIED Qualifiers: Acute renal failure type: unspecified Chronic kidney disease stage: stage 4 (severe) Qualified Code(s): N17.9 - Acute kidney failure, unspecified; N18.4 - Chronic kidney disease, stage 4 (severe) (2) Hypertension Code(s): I10 - ESSENTIAL (PRIMARY) HYPERTENSION Qualifiers: Hypertension type: unspecified Qualified Code(s): I10 - Essential (primary ) hypertension (3) Metabolic acidosis Code(s): E87.2 - ACIDOSIS (4) Hypocalcemia Code(s): E83.51 - HYPOCALCEMIA
[2018-06-04 15:18] LABS: ATYPICAL pANCA <1:20 titer (Neg:<1:20); C-ANCA <1:20 titer (Neg:<1:20); P-ANCA <1:20 titer (Neg:<1:20)
--- NOTE | 2018-06-04 15:23 | PN ---
Physical Exam: SUBJECTIVE: Patient seen and examined at bedside this morning. No acute events overnight. Patient has no complaints. She reported right calf pain after dialysis yesterday, but has resolved afterwards. OBJECTIVE: Vital Signs Period Temp Pulse Resp BP Sys/Patel Pulse Ox Last 24 Hr 98.1 F-99.0 F 78-99 18-20 116-137/70-80 98-99 GENERAL: The patient is awake, alert, and fully oriented, in no acute distress. HEAD: Normal with no signs of trauma. EYES: PERRLA, EOMI, sclera anicteric, conjunctiva clear. NECK: Trachea midline, full range of motion, supple. LUNGS: Breath sounds equal, clear to auscultation bilaterally. HEART: Regular rate and rhythm, S1, S2 without murmur, rub or gallop. ABDOMEN: Soft, nontender, nondistended, normoactive bowel sounds. EXTREMITIES: 2+ pulses, warm, well-perfused, no edema. NEUROLOGICAL: Cranial nerves II through XII grossly intact. Normal speech, normal gait. PSYCH: Normal mood, normal affect. SKIN: Warm, dry, normal turgor, no rashes or lesions noted Laboratory Results - last 24 hr 05/30/18 05/31/18 06/04/18 06:20 20:00 06:00 Sodium 140 Potassium 4.1 Chloride 103 Carbon Dioxide 30 Anion Gap 8 BUN 32 H Creatinine 4.6 H Creat Clearance w eGFR 10.91 Random Glucose 88 Calcium 7.8 L Phosphorus 3.6 c-ANCA <1:20 Proteinase 3 (PR3) <3.5 p-ANCA <1:20 Atypical p-ANCA <1:20 Myeloperoxidase Ab <9.0 Hep A IgM Ab Confirm Negative Hepatitis A Ab Total Positive H Hep Bs Antigen Negative Hep Bs Antibody Reactive Hep B Core Total Ab Negative Active Medications Generic Name Dose Route Start Last Admin Trade Name Freq PRN Reason Stop Dose Admin Calcitriol 0.5 mcg 06/01/18 10:00 06/04/18 09:44 Rocaltrol - PO 0.5 mcg DAILY [facility] Administration Calcium Acetate 667 mg 06/01/18 08:00 06/04/18 12:32 Phoslo - PO 667 mg TIDCM [facility] Administration Fentanyl 25 mcg 05/31/18 19:05 Sublimaze Injection - IVPUSH Q5M PRN PAIN-PACU ORDER X 4 DOSES ONLY Heparin Sodium (Porcine) 5,000 unit 05/31/18 22:00 06/04/18 13:13 Heparin - SQ 5,000 unit TID [facility] Administration Labetalol HCl 200 mg 05/31/18 19:31 06/01/18 15:54 Normodyne - PO 200 mg BID PRN Administration HYPERTENSION Nifedipine 30 mg 05/31/18 22:00 06/04/18 09:45 Procardia Xl - PO 30 mg BID [facility] Administration Ondansetron HCl 4 mg 05/31/18 19:31 05/31/18 22:47 Zofran Injection IVPUSH 4 mg Q6H PRN Administration NAUSEA AND/OR VOMITING ASSESSMENT/PLAN: Patient is a 32 year old female with past medical history of CKD (baseline Cr 2 ) and HTN, sent by Dr. Em to the ED for abnormally elevated BUN/Cr of 114/ 8.22. 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 Jackson) consulted. Recommendations appreciated. -Preliminary biopsy results showed FSGS with 60% scaring and no active disease. EM report is pending. -Unlikely that renal function would be recoverable with immunosuppression. -Patient will be dependent on dialysis at this time -Can consider trial of prednisone as an outpatient if EM indicative of primary FSGS -For dialysis tomorrow -Will need outpatient HD unit placement -Continue Calcitriol 0.25mcg daily -Continue phos binder with meals -Continue Nifedipine ER for BP control -Vascular surgery consulted. REcommendations appreciated. -For permacath #Hypertension: chronic -Continue Nifedipine ER 30mg BID -Labetalol 200mg PO BID PRN for SBP >150 -Will need more control as outpatient #Hypocalcemia and Hyperphosphatemia -Calcitriol 0.25mcg daily -Phos binder with meals #Normocytic Anemia -likely 2/2 CKD -Retic count -Iron studies #Metabolic acidosis: resolved -ABG on admission: 7.27/30.5/107/13.6 -sodium bicarbonate increased to 1300mg BID - discontinued #FEN -Not on any standing fluids. -Electrolytes wnl -Routine bmp monitoring -Renal diet #Prophylaxis -Heparin 5000units sq tid #Disposition -full code -med surg Visit type - Emergency Visit Emergency Visit: Yes ED Registration Date: 05/29/18 Care time: The patient presented to the Emergency Department on the above date and was hospitalized for further evaluation of their emergent condition. - New Patient This patient is new to me today: No - Critical Care Critical Care patient: No
--- NOTE | 2018-06-04 17:17 | PN ---
Progress Note (short form) - Note Progress Note: Renal follow up for CORAL on CKD Pt seen and examined at the bedside no acute complaints denies any sob, cp, abd pain s/p HD yesterday Vital Signs Temperature 98.2 F 06/04/18 10:00 Pulse Rate 78 06/04/18 10:00 Respiratory Rate 20 06/04/18 10:00 Blood Pressure 116/73 06/04/18 10:00 O2 Sat by Pulse Oximetry (%) 99 06/04/18 09:00 NAD RRR, No M/R CTA, no rales or wheeze soft NT/ND No LE edema, clubbing or cyanosis CBC, BMP 06/03/18 11:50 06/04/18 06:00 Current Medications Calcitriol (Rocaltrol -) 0.5 mcg PO DAILY [facility] Last Admin: 06/04/18 09:44 Dose: 0.5 mcg Calcium Acetate (Phoslo -) 667 mg PO TIDCM [facility] Last Admin: 06/04/18 12:32 Dose: 667 mg Fentanyl (Sublimaze Injection -) 25 mcg IVPUSH Q5M PRN PRN Reason: PAIN-PACU ORDER X 4 DOSES ONLY Heparin Sodium (Porcine) (Heparin -) 5,000 unit SQ TID [facility] Last Admin: 06/04/18 13:13 Dose: 5,000 unit Labetalol HCl (Normodyne -) 200 mg PO BID PRN PRN Reason: HYPERTENSION Last Admin: 06/01/18 15:54 Dose: 200 mg Nifedipine (Procardia Xl -) 30 mg PO BID [facility] Last Admin: 06/04/18 09:45 Dose: 30 mg Ondansetron HCl (Zofran Injection) 4 mg IVPUSH Q6H PRN PRN Reason: NAUSEA AND/OR VOMITING Last Admin: 05/31/18 22:47 Dose: 4 mg 32 year old woman with hx of CKD (baseline Cr ~2), Hypertension who was sent to the ED by Dr. Madison Em for outpatient labs that showed BUN/Cr of 114/8.22. #Progressive renal insuffiency secondary to biopsy proved FSGS (60% scared, no active disease on biopsy) now ESRD and dependent on dialysis #Anemia #Uncontrolled Hypertension #Severe Hypocalcemia with Hyperphosphatemia #Metabolic acidosis Preliminary biopsy results showed FSGS with 60% scaring and no active disease. EM report is pending. Could not differentiate primary vs secondary. Given lack of active disease and 60% scaring unlikely that renal function would be recoverable with immunosuppression at this time pt is dependent on dialysis can consider trial of prednisone as an outpatient if EM indicative of primary FSGS for next dialysis tomorrow will need outpatient HD unit placement Continue Nifedpine ER for BP control Continue Phoslo and Calcitriol Will Jackson DO
[2018-06-04 22:20] VITALS: BMI 23.0
[2018-06-05] MEDS: HEPARIN NA (PORCINE) 5,000 UNITS/ML 1ML VIAL SQ SCH ×3 (06:34→21:05)
[2018-06-05 08:19] LABS: BASO % 0.5 % (0-2.0); EOS % 4.2 % (0-4.5); HEMATOCRIT 27.4 % (32.4-45.2); HEMOGLOBIN 9.4 GM/dL (10.7-15.3); LYMPH % 17.7 % (8-40); MCH 32.3 pg (25.7-33.7); MCHC 34.2 g/dl (32.0-36.0); MEAN CELL VOLUME 94.4 fl (80-96); MEAN PLT VOLUME 8.6 fl (7.5-11.1); MONO % 9.3 % (3.8-10.2); NEUT % 68.3 % (42.8-82.8); PLATELET COUNT 177 K/MM3 (134-434); RDW 12.5 % (11.6-15.6)
[2018-06-05 08:49] LABS: ANION GAP 9 MMOL/L (8-16); BLOOD UREA NITROGEN 50 mg/dL (7-18); CHLORIDE 102 mmol/L (98-107); CO2 28 mmol/L (21-32); CREATININE 6.1 mg/dL (0.55-1.3); GLUCOSE,RANDOM 89 mg/dL (74-106); MAGNESIUM 2.1 mg/dL (1.8-2.4); PHOSPHOROUS 4.4 mg/dL (2.5-4.9); POTASSIUM 4.4 mmol/L (3.5-5.1); SODIUM 140 mmol/L (136-145)
[2018-06-05] MEDS ORDERED: EPOETIN ALFA 20,000 UNIT/1 ML VIAL IVPUSH ONE (09:00)
[2018-06-05] MEDS ORDERED: SODIUM CHLORIDE 250 ML IV PRN (09:00)
[2018-06-05] MEDS ORDERED: HEPARIN NA (PORCINE) 5,000 UNITS/ML 1ML VIAL IVPUSH ONE (09:00)
[2018-06-05] MEDS: HEPARIN NA (PORCINE) 5,000 UNITS/ML 1ML VIAL IVPUSH SCH ×2 (09:10→10:10)
[2018-06-05] MEDS: NIFEdipine E.R. 30 MG TABLET (FP) PO SCH ×2 (12:20→21:06)
[2018-06-05] MEDS: CALCIUM ACETATE 667 MG CAPSULE (FP) PO SCH ×3 (12:20→17:20)
[2018-06-05] MEDS: CALCITRIOL 0.25 MCG CAPSULE (FP) PO SCH (12:21)
--- NOTE | 2018-06-05 13:15 | PN ---
Progress Note (short form) - Note Progress Note: Renal follow up for CORAL on CKD Pt seen and examined at the bedside s/p dialysis this am had some cramping BP stable no sob, cp, abd pain tolerating diet Vital Signs Temperature 98.0 F 06/05/18 08:05 Pulse Rate 67 06/05/18 11:30 Respiratory Rate 18 06/05/18 11:30 Blood Pressure 135/95 06/05/18 11:30 O2 Sat by Pulse Oximetry (%) 99 06/04/18 09:00 Intake & Output 06/02/18 06/03/18 06/04/18 06/05/18 23:59 23:59 23:59 23:59 Intake Total 775 550 700 Balance 775 550 700 Weight 60.781 kg 61.377 kg NAD RRR, No M/R CTA, no rales or wheeze soft NT/ND No LE edema, clubbing or cyanosis CBC, BMP 06/05/18 07:30 06/05/18 07:30 Current Medications Calcitriol (Rocaltrol -) 0.5 mcg PO DAILY [facility] Last Admin: 06/05/18 12:21 Dose: 0.5 mcg Calcium Acetate (Phoslo -) 667 mg PO TIDCM [facility] Last Admin: 06/05/18 12:20 Dose: 667 mg Fentanyl (Sublimaze Injection -) 25 mcg IVPUSH Q5M PRN PRN Reason: PAIN-PACU ORDER X 4 DOSES ONLY Heparin Sodium (Porcine) (Heparin -) 5,000 unit SQ TID [facility] Last Admin: 06/05/18 06:34 Dose: 5,000 unit Sodium Chloride (Normal Saline -) 250 mls @ 3,000 mls/hr IV PRN PRN PRN Reason: Hypotension during Dialysis Stop: 06/06/18 08:59 Labetalol HCl (Normodyne -) 200 mg PO BID PRN PRN Reason: HYPERTENSION Last Admin: 06/01/18 15:54 Dose: 200 mg Nifedipine (Procardia Xl -) 30 mg PO BID [facility] Last Admin: 06/05/18 12:20 Dose: 30 mg Ondansetron HCl (Zofran Injection) 4 mg IVPUSH Q6H PRN PRN Reason: NAUSEA AND/OR VOMITING Last Admin: 05/31/18 22:47 Dose: 4 mg 32 year old woman with hx of CKD (baseline Cr ~2), Hypertension who was sent to the ED by Dr. Madison Em for outpatient labs that showed BUN/Cr of 114/8.22. #Progressive renal insuffiency secondary to biopsy proved FSGS (60% scared, no active disease on biopsy) now ESRD and dependent on dialysis #Anemia #Uncontrolled Hypertension #Severe Hypocalcemia with Hyperphosphatemia #Metabolic acidosis Preliminary biopsy results showed FSGS with 60% scaring and no active disease. EM report is pending. Could not differentiate primary vs secondary. Given lack of active disease and 60% scaring unlikely that renal function would be recoverable with immunosuppression tolerated dialysis today awaiting medicaid procurement for dialysis placement Renal diet AVF placement by vascular surgery continue Nifedpine and Labetalol Continue phos binders Will Jackson DO
--- NOTE | 2018-06-05 17:25 | PN ---
Physical Exam: SUBJECTIVE: Patient seen and examined at bedside this morning. No acute events overnight. Patient has no new complaints. Patient had dialysis today and was able to tolerate it. OBJECTIVE: Vital Signs Period Temp Pulse Resp BP Sys/Patle Pulse Ox Last 24 Hr 97.5 F-98.6 F 64-117 18-22 117-147/66-95 96 GENERAL: The patient is awake, alert, and fully oriented, in no acute distress. HEAD: Normal with no signs of trauma. EYES: PERRLA, EOMI, sclera anicteric, conjunctiva clear. NECK: Trachea midline, full range of motion, supple. LUNGS: Breath sounds equal, clear to auscultation bilaterally. HEART: Regular rate and rhythm, S1, S2 without murmur, rub or gallop. ABDOMEN: Soft, nontender, nondistended, normoactive bowel sounds. EXTREMITIES: 2+ pulses, warm, well-perfused, no edema. NEUROLOGICAL: Cranial nerves II through XII grossly intact. Normal speech, normal gait. PSYCH: Normal mood, normal affect. SKIN: Warm, dry, normal turgor, no rashes or lesions noted Laboratory Results - last 24 hr 06/05/18 06/05/18 07:30 07:30 WBC 5.0 RBC 2.90 L Hgb 9.4 L Hct 27.4 L MCV 94.4 MCH 32.3 MCHC 34.2 RDW 12.5 Plt Count 177 MPV 8.6 Absolute Neuts (auto) 3.4 Neutrophils % 68.3 Lymphocytes % 17.7 D Monocytes % 9.3 Eosinophils % 4.2 D Basophils % 0.5 Nucleated RBC % 0 Sodium 140 Potassium 4.4 Chloride 102 Carbon Dioxide 28 Anion Gap 9 BUN 50 H Creatinine 6.1 H Creat Clearance w eGFR 7.88 Random Glucose 89 Calcium 8.0 L Phosphorus 4.4 Magnesium 2.1 Active Medications Generic Name Dose Route Start Last Admin Trade Name Freq PRN Reason Stop Dose Admin Calcitriol 0.5 mcg 06/01/18 10:00 06/05/18 12:21 Rocaltrol - PO 0.5 mcg DAILY [facility] Administration Calcium Acetate 667 mg 06/01/18 08:00 06/05/18 12:57 Phoslo - PO 667 mg TIDCM [facility] Administration Fentanyl 25 mcg 05/31/18 19:05 Sublimaze Injection - IVPUSH Q5M PRN PAIN-PACU ORDER X 4 DOSES ONLY Heparin Sodium (Porcine) 5,000 unit 05/31/18 22:00 06/05/18 14:48 Heparin - SQ 5,000 unit TID [facility] Administration Sodium Chloride 250 mls @ 3,000 mls/hr 06/05/18 09:00 Normal Saline - IV 06/06/18 08:59 PRN PRN Hypotension during Dialysis Labetalol HCl 200 mg 05/31/18 19:31 06/01/18 15:54 Normodyne - PO 200 mg BID PRN Administration HYPERTENSION Nifedipine 30 mg 05/31/18 22:00 06/05/18 12:20 Procardia Xl - PO 30 mg BID [facility] Administration Ondansetron HCl 4 mg 05/31/18 19:31 05/31/18 22:47 Zofran Injection IVPUSH 4 mg Q6H PRN Administration NAUSEA AND/OR VOMITING ASSESSMENT/PLAN: Patient is a 32 year old female with past medical history of CKD (baseline Cr 2 ) and HTN, sent by Dr. Em to the ED for abnormally elevated BUN/Cr of 114/ 8.22. 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 Jackson) consulted. Recommendations appreciated. -Preliminary biopsy results showed FSGS with 60% scaring and no active disease. EM report is pending. -Unlikely that renal function would be recoverable with immunosuppression. -Patient will be dependent on dialysis at this time -Can consider trial of prednisone as an outpatient if EM indicative of primary FSGS -Dialysis today. -Awaiting medicaid approval for HD placement. -Continue Calcitriol 0.25mcg daily -Continue phos binder with meals -Continue Nifedipine ER for BP control -Vascular surgery consulted. REcommendations appreciated. -For AVF placement. #Hypertension: chronic -Continue Nifedipine ER 30mg BID -Labetalol 200mg PO BID PRN for SBP >150 -Will need more control as outpatient #Hypocalcemia and Hyperphosphatemia -Calcitriol 0.25mcg daily -Phos binder with meals #Normocytic Anemia -likely 2/2 CKD -Retic count -Iron studies #Metabolic acidosis: resolved -ABG on admission: 7.27/30.5/107/13.6 -sodium bicarbonate increased to 1300mg BID - discontinued #FEN -Not on any standing fluids. -Electrolytes wnl -Routine bmp monitoring -Renal diet #Prophylaxis -Heparin 5000units sq tid #Disposition -full code -med surg Visit type - Emergency Visit Emergency Visit: Yes ED Registration Date: 05/29/18 Care time: The patient presented to the Emergency Department on the above date and was hospitalized for further evaluation of their emergent condition. - New Patient This patient is new to me today: No - Critical Care Critical Care patient: No
--- NOTE | 2018-06-05 18:57 | PN ---
Teaching Attending Note Name of Resident: Christ Taylor ATTENDING PHYSICIAN STATEMENT I saw and evaluated the patient. I reviewed the resident's note and discussed the case with the resident. I agree with the resident's findings and plan as documented. SUBJECTIVE: no apin, no fever or chills. felt light headed after HD today , now resolved OBJECTIVE: nad CV : RRR Lungs: CTAB ext : no edema Abd : soft , NT, ND , NL BS ASSESSMENT AND PLAN: 32 y/o lady with h/o HTN and CKD who was referred due to worsening renal function 1- worsening CKD . with FSGS. HD started this admission - s/p HD today - pending out pt HD arrangements - cont Calcitriol and phoslo 2- HTN: cont labetalol and nifedipine 3- DVT PX : heparin sq dsipo : pending out pt HD arrangements
[2018-06-06] MEDS: HEPARIN NA (PORCINE) 5,000 UNITS/ML 1ML VIAL SQ SCH ×3 (05:50→21:50)
[2018-06-06 07:23] LABS: HEMATOCRIT 27.1 % (32.4-45.2); HEMOGLOBIN 9.3 GM/dL (10.7-15.3); MCH 32.3 pg (25.7-33.7); MCHC 34.3 g/dl (32.0-36.0); MEAN CELL VOLUME 94.1 fl (80-96); MEAN PLT VOLUME 8.3 fl (7.5-11.1); PLATELET COUNT 175 K/MM3 (134-434); RBC 2.88 M/mm3 (3.60-5.2); RDW 12.7 % (11.6-15.6); WHITE BLOOD COUNT 6.1 K/mm3 (4.0-10.0)
[2018-06-06 07:45] LABS: BLOOD UREA NITROGEN 40 mg/dL (7-18); CREATININE 5.1 mg/dL (0.55-1.3); GLUCOSE,RANDOM 90 mg/dL (74-106)
[2018-06-06 07:46] LABS: ANION GAP 8 MMOL/L (8-16); CALCIUM 7.7 mg/dL (8.5-10.1); CHLORIDE 98 mmol/L (98-107); CO2 30 mmol/L (21-32); MAGNESIUM 2.1 mg/dL (1.8-2.4); PHOSPHOROUS 3.8 mg/dL (2.5-4.9); POTASSIUM 3.8 mmol/L (3.5-5.1); SODIUM 136 mmol/L (136-145)
[2018-06-06] MEDS: CALCIUM ACETATE 667 MG CAPSULE (FP) PO SCH ×3 (08:24→17:10)
[2018-06-06] MEDS: CALCITRIOL 0.25 MCG CAPSULE (FP) PO SCH (09:47)
[2018-06-06] MEDS: NIFEdipine E.R. 30 MG TABLET (FP) PO SCH ×2 (09:47→21:50)
--- NOTE | 2018-06-06 12:29 | PN ---
Teaching Attending Note Name of Resident: Isela Rivera ATTENDING PHYSICIAN STATEMENT I saw and evaluated the patient. I reviewed the resident's note and discussed the case with the resident. I agree with the resident's findings and plan as documented. SUBJECTIVE: No fever or chills . No pain or SOB OBJECTIVE: NAD CV : RRR Lungs: CTAB ext : no edema ASSESSMENT AND PLAN: 32 y/o lady with h/o HTN and CKD who was referred due to worsening renal function 1- Worsening CKD . with FSGS. HD started this admission - s/p HD yesterday - pending out pt HD arrangements - cont Calcitriol and phoslo 2- HTN: cont labetalol and nifedipine . BP within goal 3- DVT PX: heparin sq Dispo : pending arrangements for out patient HD
--- NOTE | 2018-06-06 14:45 | PN ---
Progress Note (short form) - Note Progress Note: Renal follow up for CORAL on CKD Pt seen and examined at the bedside no acute complaints NPO for procedure Vital Signs Temperature 98.4 F 06/06/18 13:39 Pulse Rate 74 06/06/18 13:39 Respiratory Rate 20 06/06/18 13:39 Blood Pressure 117/68 06/06/18 13:39 O2 Sat by Pulse Oximetry (%) 96 06/06/18 09:00 Intake & Output 06/03/18 06/04/18 06/05/18 06/06/18 23:59 23:59 23:59 23:59 Intake Total 550 700 250 0 Balance 550 700 250 0 Weight 61.377 kg 59.194 kg NAD RRR, No M/R CTA, no rales or wheeze soft NT/ND No LE edema, clubbing or cyanosis CBC, BMP 06/06/18 06:30 06/06/18 06:30 Current Medications Calcitriol (Rocaltrol -) 0.5 mcg PO DAILY [facility] Last Admin: 06/06/18 09:47 Dose: 0.5 mcg Calcium Acetate (Phoslo -) 667 mg PO TIDCM [facility] Last Admin: 06/06/18 11:57 Dose: Not Given Fentanyl (Sublimaze Injection -) 25 mcg IVPUSH Q5M PRN PRN Reason: PAIN-PACU ORDER X 4 DOSES ONLY Heparin Sodium (Porcine) (Heparin -) 5,000 unit SQ TID [facility] Last Admin: 06/06/18 13:39 Dose: Not Given Labetalol HCl (Normodyne -) 200 mg PO BID PRN PRN Reason: HYPERTENSION Last Admin: 06/01/18 15:54 Dose: 200 mg Nifedipine (Procardia Xl -) 30 mg PO BID [facility] Last Admin: 06/06/18 09:47 Dose: 30 mg Ondansetron HCl (Zofran Injection) 4 mg IVPUSH Q6H PRN PRN Reason: NAUSEA AND/OR VOMITING Last Admin: 05/31/18 22:47 Dose: 4 mg 32 year old woman with hx of CKD (baseline Cr ~2), Hypertension who was sent to the ED by Dr. Madison Em for outpatient labs that showed BUN/Cr of 114/8.22. #Progressive renal insuffiency secondary to biopsy proved FSGS (60% scared, no active disease on biopsy) now ESRD and dependent on dialysis #Anemia #Hypertension #Severe Hypocalcemia with Hyperphosphatemia #Metabolic acidosis Preliminary biopsy results showed FSGS with 60% scaring and no active disease. EM report is pending. Could not differentiate primary vs secondary. Given lack of active disease and 60% scaring unlikely that renal function would be recoverable with immunosuppression No acute indication for dialysis today for AVF placement today will plan for HD tomorrow and then if dialysis spot can be procured can be discharged Will Jackson DO
[2018-06-06] MEDS ORDERED: LIDOCAINE HCL 1%, 10 MG/ML (20ML VIAL) ONE (15:17)
[2018-06-06] MEDS ORDERED: HEPARIN NA (PORCINE) 5,000 UNITS/ML 1ML VIAL ONE ×2 (15:17→18:54)
[2018-06-06] MEDS ORDERED: POVIDONE-IODINE OINTMENT 10% - 28.4 GM TUBE ONE (15:29)
--- NOTE | 2018-06-06 15:30 | PN ---
Physical Exam: SUBJECTIVE: Patient seen and examined at bedside this morning. No acute events overnight. Patient has no new complaints. For AVF placement today. OBJECTIVE: Vital Signs Period Temp Pulse Resp BP Sys/Patel Pulse Ox Last 24 Hr 97.7 F-98.6 F 74-106 18-20 117-147/64-78 96-96 GENERAL: The patient is awake, alert, and fully oriented, in no acute distress. HEAD: Normal with no signs of trauma. EYES: PERRLA, EOMI, sclera anicteric, conjunctiva clear. NECK: Trachea midline, full range of motion, supple. LUNGS: Breath sounds equal, clear to auscultation bilaterally. HEART: Regular rate and rhythm, S1, S2 without murmur, rub or gallop. ABDOMEN: Soft, nontender, nondistended, normoactive bowel sounds. EXTREMITIES: 2+ pulses, warm, well-perfused, no edema. NEUROLOGICAL: Cranial nerves II through XII grossly intact. Normal speech, normal gait. PSYCH: Normal mood, normal affect. SKIN: Warm, dry, normal turgor, no rashes or lesions noted Laboratory Results - last 24 hr 06/06/18 06/06/18 06:30 06:30 WBC 6.1 RBC 2.88 L Hgb 9.3 L Hct 27.1 L MCV 94.1 MCH 32.3 MCHC 34.3 RDW 12.7 Plt Count 175 MPV 8.3 Sodium 136 Potassium 3.8 Chloride 98 Carbon Dioxide 30 Anion Gap 8 BUN 40 H Creatinine 5.1 H Creat Clearance w eGFR 9.68 Random Glucose 90 Calcium 7.7 L Phosphorus 3.8 Magnesium 2.1 Active Medications Generic Name Dose Route Start Last Admin Trade Name Freq PRN Reason Stop Dose Admin Calcitriol 0.5 mcg 06/01/18 10:00 06/06/18 09:47 Rocaltrol - PO 0.5 mcg DAILY [facility] Administration Calcium Acetate 667 mg 06/01/18 08:00 06/06/18 11:57 Phoslo - PO Not Given TIDCM [facility] Fentanyl 25 mcg 05/31/18 19:05 Sublimaze Injection - IVPUSH Q5M PRN PAIN-PACU ORDER X 4 DOSES ONLY Heparin Sodium (Porcine) 5,000 unit 05/31/18 22:00 06/06/18 13:39 Heparin - SQ Not Given TID [facility] Labetalol HCl 200 mg 05/31/18 19:31 06/01/18 15:54 Normodyne - PO 200 mg BID PRN Administration HYPERTENSION Nifedipine 30 mg 05/31/18 22:00 06/06/18 09:47 Procardia Xl - PO 30 mg BID [facility] Administration Ondansetron HCl 4 mg 05/31/18 19:31 05/31/18 22:47 Zofran Injection IVPUSH 4 mg Q6H PRN Administration NAUSEA AND/OR VOMITING ASSESSMENT/PLAN: Patient is a 32 year old female with past medical history of CKD (baseline Cr 2 ) and HTN, sent by Dr. Em to the ED for abnormally elevated BUN/Cr of 114/ 8.22. 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 Jackson) consulted. Recommendations appreciated. -Preliminary biopsy results showed FSGS with 60% scaring and no active disease. EM report is pending. -Unlikely that renal function would be recoverable with immunosuppression. -Patient will be dependent on dialysis at this time -Can consider trial of prednisone as an outpatient if EM indicative of primary FSGS -Dialysis MWF. -Medicaid approved. Awaiting HD placement. Once approved, will be discharged. -Continue Calcitriol 0.25mcg daily -Continue phos binder with meals -Continue Nifedipine ER for BP control -Vascular surgery consulted. REcommendations appreciated. -For AVF placement today. #Hypertension: chronic -Continue Nifedipine ER 30mg BID -Labetalol 200mg PO BID PRN for SBP >150 -Will need more control as outpatient #Hypocalcemia and Hyperphosphatemia -Calcitriol 0.25mcg daily -Phos binder with meals #Normocytic Anemia -likely 2/2 CKD -Retic count -Iron studies #Metabolic acidosis: resolved -ABG on admission: 7.27/30.5/107/13.6 -sodium bicarbonate discontinued #FEN -Not on any standing fluids. -Electrolytes wnl -Routine bmp monitoring -Renal diet (NPO for procedure) #Prophylaxis -Heparin 5000units sq tid #Disposition -full code -med surg Visit type - Emergency Visit Emergency Visit: Yes ED Registration Date: 05/29/18 Care time: The patient presented to the Emergency Department on the above date and was hospitalized for further evaluation of their emergent condition. - New Patient This patient is new to me today: No - Critical Care Critical Care patient: No
[2018-06-06] MEDS ORDERED: LIDOCAINE HCL 1%, 10 MG/ML (20ML VIAL) NR ONE (16:51)
[2018-06-06] MEDS ORDERED: MIDAZOLAM HCL 2 MG/2 ML SINGLE DOSE VIAL ONE (17:59)
[2018-06-06] MEDS ORDERED: PAPAVERINE HCL 30 MG/1 ML 10 ML VIAL NR ONE (18:32)
[2018-06-06] MEDS ORDERED: POVIDONE-IODINE OINTMENT 10% - 28.4 GM TUBE TP ONE (19:48)
--- NOTE | 2018-06-06 19:54 | OP ---
Operative Note - Note: Operative Date: 06/06/18 Pre-Operative Diagnosis: ESRD on HD Operation: Creation AV fistula left arm Findings: Patent cephalic vein and radial artery Post-Operative Diagnosis: Same as Pre-op Surgeon: Moe Rebollar Anesthesiologist/SILVER SOLDERER: Anastasia Otto Anesthesia: Fractional Estimated Blood Loss (mls): 20
[2018-06-06] MEDS ORDERED: ONDANSETRON 4 MG/2 ML VIAL IVPUSH PRN (20:00)
[2018-06-06] MEDS ORDERED: LABETALOL HCL 200 MG TABLET (FP) PO PRN (20:00)
[2018-06-07] MEDS: HEPARIN NA (PORCINE) 5,000 UNITS/ML 1ML VIAL SQ SCH ×2 (06:49→14:08)
[2018-06-07] MEDS: CALCIUM ACETATE 667 MG CAPSULE (FP) PO SCH ×3 (08:01→17:18)
[2018-06-07] MEDS: ACETAMINOPHEN WITH CODEINE 300MG/30MG TABLET PO PRN ×2 (08:04→14:10)
[2018-06-07 08:22] LABS: ANION GAP 11 MMOL/L (8-16); BLOOD UREA NITROGEN 50 mg/dL (7-18); CALCIUM 7.8 mg/dL (8.5-10.1); CHLORIDE 101 mmol/L (98-107); CO2 26 mmol/L (21-32); CREATININE 6.4 mg/dL (0.55-1.3); GLUCOSE,RANDOM 81 mg/dL (74-106); MAGNESIUM 1.9 mg/dL (1.8-2.4); POTASSIUM 4.5 mmol/L (3.5-5.1); SODIUM 138 mmol/L (136-145)
[2018-06-07] MEDS: NIFEdipine E.R. 30 MG TABLET (FP) PO SCH (09:31)
[2018-06-07] MEDS ORDERED: SODIUM CHLORIDE 250 ML IV PRN (09:45)
[2018-06-07] MEDS ORDERED: EPOETIN ALFA 10,000 UNIT/1 ML VIAL IVPUSH ONE (10:00)
--- NOTE | 2018-06-07 10:45 | PN ---
Progress Note (short form) - Note Progress Note: POD #1 s/p LUE AVF. Currently o HD via PC. Good flow. Alert. No complaints. AVSS. Afebrile. + Thrill Left wrist AVF. Patient to f/u w/ Dr. Rebollar for post-operative visit in 7-[address] days. On behalf of Dr. Rebollar thank you for the opportunity to participate in your patient's care
--- NOTE | 2018-06-07 11:05 | PN ---
Progress Note (short form) - Note Progress Note: S/p AVF creation LUE. Currently in HD; no pain, nausea, or any other issues/ complications with anesthesia.
[2018-06-07] MEDS: CALCITRIOL 0.25 MCG CAPSULE (FP) PO SCH ×2 (14:07→14:38)
[2018-06-07] MEDS ORDERED: PT OWN MED DRAWER 7, Y5N ONE (14:37)
--- NOTE | 2018-06-07 15:32 | PN ---
Progress Note (short form) - Note Progress Note: Renal follow up for CORAL on CKD Pt seen and examined at the bedside no acute complaints tolerated dialysis this am no sob, cp, abd pain awaiting outpatient HD placement Vital Signs Temperature 98.5 F 06/07/18 14:58 Pulse Rate 89 06/07/18 14:58 Respiratory Rate 18 06/07/18 14:58 Blood Pressure 131/82 06/07/18 14:58 O2 Sat by Pulse Oximetry (%) 98 06/07/18 09:00 Intake & Output 06/04/18 06/05/18 06/06/18 06/07/18 23:59 23:59 23:59 23:59 Intake Total 700 250 550 550 Output Total 5 Balance 700 250 545 550 Weight 61.377 kg 59.194 kg 60.838 kg NAD RRR, No M/R CTA, no rales or wheeze soft NT/ND No LE edema, clubbing or cyanosis CBC, BMP 06/06/18 06:30 06/07/18 06:40 Laboratory Tests 06/07/18 06:40 Calcium 7.8 L Phosphorus 5.0 H Magnesium 1.9 Current Medications Acetaminophen/Codeine Phosphate (Tylenol # 3 -) 1 tab PO Q4H PRN PRN Reason: PAIN LEVEL 4 - 6 Last Admin: 06/07/18 14:10 Dose: 1 tab Calcitriol (Rocaltrol -) 0.5 mcg PO DAILY [facility] Last Admin: 06/07/18 14:38 Dose: 0.5 mcg Calcium Acetate (Phoslo -) 667 mg PO TIDCM [facility] Last Admin: 06/07/18 14:08 Dose: 667 mg Heparin Sodium (Porcine) (Heparin -) 5,000 unit SQ TID [facility] Last Admin: 06/07/18 14:08 Dose: 5,000 unit Sodium Chloride (Normal Saline -) 250 mls @ 3,000 mls/hr IV PRN PRN PRN Reason: Hypotension during Dialysis Stop: 06/08/18 09:44 Labetalol HCl (Normodyne -) 200 mg PO BID PRN PRN Reason: HYPERTENSION Nifedipine (Procardia Xl -) 30 mg PO BID [facility] Last Admin: 06/07/18 09:31 Dose: 30 mg Ondansetron HCl (Zofran Injection) 4 mg IVPUSH Q6H PRN PRN Reason: NAUSEA AND/OR VOMITING 32 year old woman with hx of CKD (baseline Cr ~2), Hypertension who was sent to the ED by Dr. Madison Em for outpatient labs that showed BUN/Cr of 114/8.22. #Progressive renal insuffiency secondary to biopsy proved FSGS (60% scared, no active disease on biopsy) now ESRD and dependent on dialysis #Anemia #Hypertension #Severe Hypocalcemia with Hyperphosphatemia #Metabolic acidosis tolerated dialysis well this am awaiting outpatient HD unit placement referral to be sent to [facility] as well as pt may be a good candidate for PD and they have an active PD program there Continue Labetalol and Nifedpine continue Ploslo and Calcitriol Discharge once outpatient HD unit placement secured Will Jackson DO
--- NOTE | 2018-06-07 18:13 | PN ---
Teaching Attending Note Name of Resident: Isela Rivera ATTENDING PHYSICIAN STATEMENT I saw and evaluated the patient. I reviewed the resident's note and discussed the case with the resident. I agree with the resident's findings and plan as documented. SUBJECTIVE: No fever or chills . No abd pain . no SOB OBJECTIVE: NAD CV : RRR Lungs: CTAB ext : no edema on LE . L forearm dressing on graft site . ASSESSMENT AND PLAN: 32 y/o lady with h/o HTN and CKD who was referred due to worsening renal function 1- Worsening CKD . with FSGS. HD started this admission - s/p HD today - cont Calcitriol and phoslo - d/w Dr. Jackson, HD was arranged for her , next session on Sunday 2- HTN: cont labetalol and nifedipine was being given labtalol 200 BID PRN here. will dc on 100 BID . 3- Dc home
--- NOTE | 2018-06-07 18:31 | DS ---
Physical Exam: SUBJECTIVE: Patient seen and examined at bedside this morning. No acute events overnight. Reports pain on AVF site but relieved by medication. Otherwise, denies fever, chills, headache, dizziness, chest pain, SOB, abdominal pain, diarrhea, urinary symptoms. OBJECTIVE: Vital Signs Temperature 98.4 F 06/07/18 18:00 Pulse Rate 91 H 06/07/18 18:00 Respiratory Rate 20 06/07/18 18:00 Blood Pressure 124/85 06/07/18 18:00 O2 Sat by Pulse Oximetry (%) 98 06/07/18 09:00 PHYSICAL EXAM GENERAL: The patient is awake, alert, and fully oriented, in no acute distress. HEAD: Normal with no signs of trauma. EYES: PERRLA, EOMI, sclera anicteric, conjunctiva clear. NECK: Trachea midline, full range of motion, supple. LUNGS: Breath sounds equal, clear to auscultation bilaterally. HEART: Regular rate and rhythm, S1, S2 without murmur, rub or gallop. ABDOMEN: Soft, nontender, nondistended, normoactive bowel sounds. EXTREMITIES: 2+ pulses, warm, well-perfused, no edema. NEUROLOGICAL: Cranial nerves II through XII grossly intact. Normal speech, normal gait. PSYCH: Normal mood, normal affect. SKIN: Warm, dry, normal turgor, no rashes or lesions noted LABS Laboratory Results - last 24 hr 06/07/18 06:40 Sodium 138 Potassium 4.5 Chloride 101 Carbon Dioxide 26 Anion Gap 11 BUN 50 H Creatinine 6.4 H Creat Clearance w eGFR 7.45 Random Glucose 81 Calcium 7.8 L Phosphorus 5.0 H Magnesium 1.9 HOSPITAL COURSE: Date of Admission:05/29/18 Date of Discharge: 06/07/18 Patient is a 32 year old female with past medical history of CKD (baseline Cr 2 ) and HTN, sent by accounts receivable clerk to the ED for abnormally elevated BUN/Cr of 114/ 8.22. Patient was also noted to have elevated blood pressure. She was started on Nifedipine and Labetalol. Her blood pressure was controlled with the medications, but she still remained to have azotemia. She also had persistent hypocalcemia and hyperphosphatemia and was given Calcitriol and Phoslo. Patient was started on dialysis. Renal biopsy was done which showed FSGS (60% scarred, no active disease). AV fistula was placed. She was discharged with instructions to follow at [facility] where she will receive regular dialysis, and to follow-up with nephrology and PCP. Minutes to complete discharge: 40 Discharge Summary Reason For Visit: ACUTE KIDNEY INJURY Current Active Problems Acute kidney injury (Acute) Hypertension (Acute) Hypocalcemia (Acute) Condition: Stable - Instructions Diet, Activity, Other Instructions: Your visit You were admitted to the hospital because you were noted to have abnormal kidney function. Biopsy was done which revealed 60% of your kidneys are not functioning normally. You were seen by nephrology (Dr. Jackson) who recommended that you require to have dialysis. Medications Please take the following medications as prescribed: 1. Calcitriol 0.5 mcg daily. 2. Calcium Acetate (Phos-lo) 667mg three times a day. 3. Nifedipine 30mg twice a day. 4. Labetalol 100mg twice a day. 4. You may take Tylenol 650mg every 6 hours as needed for pain. Follow-up -Please follow-up with the accounts receivable clerk (Dr. Em) within 1 week. -Please follow up with Dr. Rebollar for post-operative visit in 7-20 days.Call his office to schedule an appointment. -Follow-up with your primary care doctor within 1 week. Please call the medical operations supervisor clinic at [facility] at [phone] to schedule an appointment with Dr. Taylor (Sunday 1pm-5pm). Additional info Call 911 or go to the ED if with any worsening fever, chills, headache, dizziness, chest pain, shortness of breath, abdominal pain, diarrhea, or any new concerns noted. You are scheduled for dialysis on Sunday (06/12/18) at 2pm at: [address] wound care: dry clean gauze on the surgery site daily . if you have any questions about surgery site , you can call Dr. Rebollar Referrals: [facility] [place] [Provider Group] Madison Em MD [Staff Physician] - 1 Week Moe Rebollar MD [Staff Physician] - Disposition: HOME - Home Medications Comprehensive Discharge Medication List: Ambulatory Orders Acetaminophen [Tylenol] 625 mg PO Q6H PRN #30 tablet 06/07/18 Calcitriol [Calcitriol -] 0.5 mcg PO DAILY #30 capsule 06/07/18 Calcium Acetate [Phoslo -] 667 mg PO TIDCM #30 capsule 06/07/18 Labetalol HCl 100 mg PO BID #60 tablet 06/07/18 Nifedipine ER [Procardia XL -] 30 mg PO BID #60 tab.er.24 06/07/18 This patient is new to me today: No Emergency Visit: Yes ED Registration Date: 05/29/18 Care time: The patient presented to the Emergency Department on the above date and was hospitalized for further evaluation of their emergent condition. Critical Care patient: No - Discharge Referral Referred to [facility] No
[2018-06-07 19:05] VITALS: BP 124/85; PULSE 91; TEMP 98.4
--- NOTE | 2018-06-08 11:20 | OP ---
DATE OF OPERATION: 06/06/2018 SURGEON: Moe Monreal MD PROCEDURE: Creation of arteriovenous fistula, left arm. PREOPERATIVE DIAGNOSIS: Renal failure. POSTOPERATIVE DIAGNOSIS: Renal failure. ANESTHESIA: Fractional. ANESTHESIOLOGIST: Anastasia Otto MD OPERATIVE FINDINGS: The left cephalic vein and radial artery were patent proximal to the wrist. OPERATIVE PROCEDURE: Following routine patient identification with side and site verification, intravenous sedation was established. The left arm was prepped with ChloraPrep. Time-out was performed. Xylocaine 1% was infiltrated over the distal cephalic vein and radial artery proximal to the wrist. Vessels had been mapped preoperatively with duplex imaging. A skin incision was made over the vein, and it was exposed using cautery for hemostasis. Side branches of the vein were ligated with silk ties and divided. The vein was ligated distally and incised. It was distended with heparin and papaverine solution. No. 5 and No. 8 feeding tubes were passed proximally without resistance, and the vein was filled with heparin and occluded with a small bulldog clamp. The radial artery was then exposed through a parallel incision. It was encircled proximally and distally with vessel loops. Side branches were ligated and divided. The vein was then passed through a short subcutaneous tunnel to lie next to the artery. The artery was occluded with the vessel loops and opened on its exposed surface with a 6-mm arteriotomy. The end of the vein was spatulated, and anastomosed to the side of the artery with running suture of 6-0 Prolene. Prior to the completion of the suture line, the artery was allowed to back-bleed and flush, and the vein was flushed with heparin solution. Suture line was completed, and all vessels were released. There was good flow through the anastomosis with a palpable thrill proximally. Bleeding from the suture line was controlled with Surgicel. When hemostasis was adequate, the wounds were closed with interrupted sutures of 3-0 Vicryl and skin mg. Sterile dressings were applied, and the patient was taken to the recovery room in stable condition. MOE MONREAL M.D. [id number]
--- NOTE | 2018-06-18 18:06 | PATH ---
Surgical Pathology Report Patient Name: JAN IBRAHIM [facility]. Rec. #: [id number] /Age/Gender: 1985 (Age: 32) / F Account: [id number] Location: [address] [place] [address] Taken: 05/30/2018 Received: 05/30/2018 Reported: 06/18/2018 Physicians: Pelon Hammond M.D. Specimen(s) Received RENAL BIOPSY FOR SEND OUT Clinical History 32 year old female, acute renal failure, Chronic kidney disease Intraoperative Consult Diagnosis Right renal biopsy: Few glomeruli present. Daniel Oviedo M.D., 05/30/2018 Final Diagnosis RENAL, BIOPSY: FOCAL SEGMENTAL AND DIFFUSE GLOBAL GLOMERULOSCLEROSIS, SEVERE. TUBULAR ATROPHY AND INTERSTITIAL FIBROSIS, MODERATE TO SEVERE. ARTERIOSCLEROSIS, MODERATE. SEE COMMENT. Comment: Immunofluorescence microscopy shows no evidence of glomerular disease of the immune complex type. The differential diagnosis includes primary, genetic, and secondary forms of FSGS. Of note, the absence of nephrotic syndrome argues against, but does not exclude a primary podocytopathy. No acute/active inflammatory injury is seen. The moderate to severe tubulointerstitial scarring is likely reversible and is poor prognostic sign. Case sent for consultation to Dr. Joey Patrick from [facility], [place], [place] ([id number]), the diagnosis above reflects his opinion. Electronically Signed Jan Rodriguez M.D. Gross Description Received in saline labeled "right renal biopsy" is a 1.2 cm in length x 0.1 cm in diameter schmidt, cylindrical portion of soft tissue. The specimen is divided, placed into 10% buffered formalin, David fixative and glutaraldehyde. The specimen is sent to [facility] for further studies. /05/30/2018 saudi05/30/2018
== END 2018-06-07 19:30 | disposition home or self-care (01) | DRG 444 ==
LOC: JER 09:33 → JERBED 10:09 → J6S 15:51
PROVIDERS: ADMIT Internal Medicine; ATTEND Internal Medicine
PROC: 0TB13ZX Excision of Left Kidney, Percutaneous Approach, Diagnostic (ICD-10-PCS; 2018-05-30)
PROC: B513ZZA Fluoroscopy of Right Jugular Veins, Guidance (ICD-10-PCS; 2018-05-31)
PROC: 05HM33Z Insertion of Infusion Device into Right Internal Jugular Vein, Percutaneous Approach (ICD-10-PCS; principal; 2018-05-31 17:00)
PROC: 5A1D70Z Performance of Urinary Filtration, Intermittent, Less than 6 Hours Per Day (ICD-10-PCS; 2018-06-01)
PROC: 5A1D70Z Performance of Urinary Filtration, Intermittent, Less than 6 Hours Per Day (ICD-10-PCS; 2018-06-03)
PROC: 5A1D70Z Performance of Urinary Filtration, Intermittent, Less than 6 Hours Per Day (ICD-10-PCS; 2018-06-05)
PROC: 031C0ZF Bypass Left Radial Artery to Lower Arm Vein, Open Approach (ICD-10-PCS; 2018-06-06)
PROC: 5A1D70Z Performance of Urinary Filtration, Intermittent, Less than 6 Hours Per Day (ICD-10-PCS; 2018-06-07)
DX: N17.9 Acute kidney failure, unspecified (principal); I16.1 Hypertensive emergency; E87.2 Acidosis; E83.51 Hypocalcemia; E83.39 Other disorders of phosphorus metabolism; E87.6 Hypokalemia; D63.8 Anemia in other chronic diseases classified elsewhere; I12.0 Hypertensive chronic kidney disease with stage 5 chronic kidney disease or end stage renal disease; N18.6 End stage renal disease; Z99.2 Dependence on renal dialysis
CPT/HCPCS: 36415; 36600; 50200; 71045-TC-FY; 71046-TC-FY; 76098-TC-FY; 76942-TC; 80048; 80053; 81003; 81015; 82570; 82728; 82803; 83010; 83036; 83520; 83540; 83550; 83615; 83735; 84100; 84156; 84300; 84550; 84703; 85025; 85027; 85044; 85610; 86256; 86317; 86704; 86706; 86708; 86803; 87340; 87899; 88329; 93005; 93010; 93930; 93971; 94760; 99283-25; J0885; J1644; J7030

== ENCOUNTER 2018-07-02 08:06 | Day surgery (SDC) | payer OTHER ==
[2018-07-02 08:12] VITALS: BMI 23.7
--- NOTE | 2018-07-02 08:16 | PDOC ---
History of Present Illness - General Chief Complaint: Dialysis Shunt Problem Stated Complaint: SENT BY PCP Time Seen by Provider: 07/02/18 08:16 - History of Present Illness Initial Comments: 07/02/18 08:20 32 year old woman with history of CKD Stage IV (baseline Cr 2.0ish), HTN (not on medications) who sent by Dr. Hahn for R forearm fistula surgery. The patient gets dialyzed MWF and last got dialyzed yesterday through her R port cath. The patient is getting dialysis site moved due to her port cath not working. The patient still makes urine. No chest pain, sob. n/v/d/c, abd paion, dysuria. She has no other complaints at this time. Past History - Past Medical History Allergies/Adverse Reactions: Allergies Allergy/AdvReac Type Severity Reaction Status Date / Time No Known Allergies Allergy Verified 07/02/18 08:10 Home Medications: Ambulatory Orders Acetaminophen [Tylenol] 625 mg PO Q6H PRN #30 tablet 06/07/18 Calcitriol [Calcitriol -] 0.5 mcg PO DAILY #30 capsule 06/07/18 Calcium Acetate [Phoslo -] 667 mg PO TIDCM #30 capsule 06/07/18 Labetalol HCl 100 mg PO BID #60 tablet 06/07/18 Nifedipine ER [Procardia XL -] 30 mg PO BID #60 tab.er.24 06/07/18 Anemia: No Asthma: No Cancer: No Cardiac Disorders: No CVA: No COPD: No CHF: No Dementia: No Diabetes: No GI Disorders: No Disorders: No HTN: Yes Hypercholesterolemia: No Liver Disease: No Seizures: No Thyroid Disease: No - Surgical History Abdominal Surgery: Yes Appendectomy: No Cardiac Surgery: No Cholecystectomy: Yes Lung Surgery: No Neurologic Surgery: No - Immunization History Immunization Up to Date: No - Suicide/Smoking/Psychosocial Hx Smoking History: Never smoked Have you smoked in the past 12 months: No Cigars Per Day: 0 Hx Alcohol Use: No Drug/Substance Use Hx: No Substance Use Type: None *Physical Exam - Vital Signs Last Vital Signs Temp Pulse Resp BP Pulse Ox 98.7 F 88 18 136/77 99 07/02/18 08:10 07/02/18 08:10 07/02/18 08:10 07/02/18 08:10 07/02/18 08:10 - Physical Exam Comments: 07/02/18 08:38 General Appearance: Yes: Nourished Moderate Sedation - Procedure Monitoring Vital Signs: Procedure Monitoring Vital Signs Temperature 98.7 F 07/02/18 08:10 Pulse Rate 88 07/02/18 08:10 Respiratory Rate 18 07/02/18 08:10 Blood Pressure 136/77 07/02/18 08:10 O2 Sat by Pulse Oximetry (%) 99 07/02/18 08:10 ED Treatment Course - LABORATORY CBC & Chemistry Diagram: 07/02/18 08:35 07/02/18 08:35 Medical Decision Making - Medical Decision Making 07/02/18 08:37 32 year old woman with history of CKD Stage IV (baseline Cr 2.0ish), HTN (not on medications) who sent by Dr. Hahn for R forearm fistula surgery. The patient gets dialyzed MWF and last got dialyzed yesterday through her R port cath. The patient is getting dialysis site moved due to her port cath not working. The patient still makes urine. ED Course: pre-op labs and ekg beta hcg OR aware of patient Surgical PA at bedside. *DC/Admit/Observation/Transfer Diagnosis at time of Disposition: ESRD (end stage renal disease) - Discharge Dispostion Condition at time of disposition: Stable Decision to Admit order: Yes - Referrals - Patient Instructions - Post Discharge Activity
[2018-07-02 08:51] LABS: BASO % 0.8 % (0-2.0); HEMATOCRIT 34.7 % (32.4-45.2); HEMOGLOBIN 12.1 GM/dL (10.7-15.3); LYMPH % 10.4 % (8-40); MCH 34.1 pg (25.7-33.7); MCHC 34.8 g/dl (32.0-36.0); MEAN CELL VOLUME 97.8 fl (80-96); MEAN PLT VOLUME 7.9 fl (7.5-11.1); MONO % 4.4 % (3.8-10.2); NEUT % 83.4 % (42.8-82.8); PLATELET COUNT 245 K/MM3 (134-434); RBC 3.54 M/mm3 (3.60-5.2); RDW 14.8 % (11.6-15.6); WHITE BLOOD COUNT 8.2 K/mm3 (4.0-10.0)
--- NOTE | 2018-07-02 08:53 | PDOC ---
Attending Attestation - Resident Resident Name: Kayla Cerrato - ED Attending Attestation I have performed the following: I have examined & evaluated the patient, The case was reviewed & discussed with the resident, I agree w/resident's findings & plan, Exceptions are as noted - HPI HPI: 32 yo F history ESRD on HD presents for revision of - Physicial Exam PE: GENERAL: Awake, alert, and fully oriented, in no acute distress HEAD: No signs of trauma EYES: PERRLA, EOMI, sclera anicteric, conjunctiva clear ENT: Auricles normal inspection, hearing grossly normal, nares patent, oropharynx clear without exudates. Moist mucosa NECK: Normal ROM, supple, no lymphadenopathy, JVD, or masses LUNGS: Breath sounds equal, clear to auscultation bilaterally. No wheezes, and no crackles. +Permacath to R upper chest wall. HEART: Regular rate and rhythm, normal S1 and S2, no murmurs, rubs or gallops ABDOMEN: Soft, nontender, normoactive bowel sounds. No guarding, no rebound. No masses EXTREMITIES: L forearm fistula with no palpable thrill. Remainder of extremities with normal range of motion, no edema. No clubbing or cyanosis. No cords, erythema, or tenderness NEUROLOGICAL: Cranial nerves II through XII grossly intact. Normal speech, normal gait. Motor and sensation intact SKIN: Warm, Dry, normal turgor, no rashes or lesions noted. - Medical Decision Making Pt sent for revision of AVF, admitted via OR as per Dr. Rebollar.
--- NOTE | 2018-07-02 09:01 | HP ---
Admitting History and Physical - Admission History of Present Illness: The patient is 32 yo female with a history of ESRD, on HD via a permacath. She had a left arm AVF approximately 20 days ago and it hasn't matured. She is here today for a creation of a new Left arm AVF. She denies any CP, SOB or fevers. Her last HD session was yesterday. The history was taken via [employer] intreperter # [id number] History Source: Patient Limitations to Obtaining History: No Limitations - Past Medical History Cardiovascular: Yes: HTN. No: Deep Vein Thrombosis Pulmonary: Yes: Asthma. No: Bronchitis Renal/: Yes: Renal Inusuff ...LMP: 05/27/13 - Past Surgical History Past Surgical History: Yes: Cholecystectomy Additional Past Surgical History: left arm AVF 06/06/2018 - Smoking History Smoking history: Never smoked Have you smoked in the past 12 months: No - Alcohol/Substance Use Hx Alcohol Use: No Home Medications - Allergies Allergies/Adverse Reactions: Allergies Allergy/AdvReac Type Severity Reaction Status Date / Time No Known Allergies Allergy Verified 07/02/18 08:10 - Home Medications Home Medications: Ambulatory Orders Acetaminophen [Tylenol] 625 mg PO Q6H PRN #30 tablet 06/07/18 Calcitriol [Calcitriol -] 0.5 mcg PO DAILY #30 capsule 06/07/18 Calcium Acetate [Phoslo -] 667 mg PO TIDCM #30 capsule 06/07/18 Labetalol HCl 100 mg PO BID #60 tablet 06/07/18 Nifedipine ER [Procardia XL -] 30 mg PO BID #60 tab.er.24 06/07/18 Review of Systems - Review of Systems Constitutional: denies: No Symptoms, Chills, Fever Cardiovascular: denies: Chest Pain, Edema, Palpitations Respiratory: reports: SOB. denies: Cough Gastrointestinal: denies: Abdominal Pain Genitourinary: denies: Discharge, Hematuria Neurological: denies: Headache, Seizure Hematology/Lymphatic: denies: Easily Bruised, Excessive Bleeding Physical Examination Vital Signs: Vital Signs Temperature 98.7 F 07/02/18 08:10 Pulse Rate 88 07/02/18 08:10 Respiratory Rate 18 07/02/18 08:10 Blood Pressure 136/77 07/02/18 08:10 O2 Sat by Pulse Oximetry (%) 98 07/02/18 08:31 Constitutional: Yes: Well Nourished, Calm HENT: Yes: WNL, Atraumatic, Normocephalic Neck: Yes: WNL, Supple, Trachea Midline Cardiovascular: Yes: WNL, Regular Rate and Rhythm Respiratory: Yes: WNL, Regular, CTA Bilaterally Gastrointestinal: Yes: WNL, Normal Bowel Sounds, Soft Extremities: No: Calf Tenderness Edema: No Neurological: Yes: WNL, Alert, Oriented ...Motor Strength: WNL, LUE, LLE, RUE, RLE Psychiatric: Yes: WNL, Alert, Oriented Labs: Laboratory Tests 07/02/18 07/02/18 07/02/18 02:14 08:35 08:35 WBC 8.2 Hct 34.7 D MCV 97.8 H Plt Count 245 D PT with INR 12.30 INR 1.04 PTT (Actin FS) 29.5 Sodium 138 Potassium 5.2 H Chloride 105 Carbon Dioxide 25 Anion Gap 8 BUN 46 H Creatinine 4.9 H Creat Clearance w eGFR 10.14 Random Glucose 95 Calcium 7.7 L Beta HCG, Quant 07/02/18 08:35 WBC Hct MCV Plt Count PT with INR INR PTT (Actin FS) Sodium Potassium Chloride Carbon Dioxide Anion Gap BUN Creatinine Creat Clearance w eGFR Random Glucose Calcium Beta HCG, Quant < 1.0 Assessment/Plan 32 yo female with ESRD, plan for OR today She remains npo since last 10 om yesterday DVT ppx with SCDs/intra-op post-op ambulation Admit to the hospital as a satellite and plan for discharge to home Pt seen with Dr. Rebollar this am
[2018-07-02] MEDS ORDERED: HEPARIN NA (PORCINE) 5,000 UNITS/ML 1ML VIAL ONE (09:02)
[2018-07-02] MEDS ORDERED: PAPAVERINE HCL 30 MG/1 ML 10 ML VIAL NR ONE (09:02)
[2018-07-02] MEDS ORDERED: POVIDONE-IODINE OINTMENT 10% - 28.4 GM TUBE ONE (09:03)
[2018-07-02 09:07] LABS: INR 1.04 (0.83-1.09); PROTHROMBIN TIME (PATIENT) 12.3 SEC (9.7-13.0)
[2018-07-02 09:10] LABS: ACTIVATED PTT 29.5 SECONDS (25.2-36.5)
[2018-07-02] MEDS ORDERED: PROPOFOL 20 ML ONE (09:16)
[2018-07-02] MEDS ORDERED: MIDAZOLAM HCL 2 MG/2 ML SINGLE DOSE VIAL ONE ×2 (09:17→09:44)
[2018-07-02 09:22] LABS: ALBUMIN 3.4 g/dl (3.4-5.0); ALK PHOS 103 U/L (45-117); ANION GAP 8 MMOL/L (8-16); BILIRUBIN,TOTAL 0.6 mg/dL (0.2-1); BLOOD UREA NITROGEN 46 mg/dL (7-18); CALCIUM 7.7 mg/dL (8.5-10.1); CHLORIDE 105 mmol/L (98-107); CO2 25 mmol/L (21-32); CREATININE 4.9 mg/dL (0.55-1.3); GLUCOSE,RANDOM 95 mg/dL (74-106); POTASSIUM 5.2 mmol/L (3.5-5.1); SGOT/AST 22 U/L (15-37); SGPT/ALT 15 U/L (13-61); SODIUM 138 mmol/L (136-145); TOT PROT 7.3 g/dl (6.4-8.2)
[2018-07-02] MEDS ORDERED: POVIDONE-IODINE OINTMENT 10% - 28.4 GM TUBE TP ONE (09:53)
[2018-07-02] MEDS ORDERED: LIDOCAINE HCL 1%, 10 MG/ML (20ML VIAL) INF ONE (09:53)
--- NOTE | 2018-07-02 11:03 | OP ---
Operative Note - Note: Operative Date: 07/02/18 Pre-Operative Diagnosis: ESRD Operation: Creation AV fistula left arm Findings: Patent cephalic vein proximal to antecubital fossa Post-Operative Diagnosis: Same as Pre-op Surgeon: Moe Rebollar Matrix Supervisor: Kitty Montez Anesthesiologist/PRODUCT MANAGEMENT SPECIALIST: Prabhu Valles Anesthesia: Fractional Estimated Blood Loss (mls): 10
[2018-07-02] MEDS ORDERED: ACETAMINOPHEN WITH CODEINE 300MG/30MG TABLET PO PRN (11:07)
[2018-07-02] MEDS ORDERED: ASPIRIN 81 MG CHEWABLE TABLETS PO SCH (11:15)
[2018-07-02] MEDS ORDERED: ONDANSETRON 4 MG/2 ML VIAL IVPUSH PRN (11:24)
[2018-07-02] MEDS ORDERED: oxyCODONE HCL 5 MG TABLET PO PRN ×2 (11:24)
--- NOTE | 2018-07-02 11:28 | SURG ---
Surgery Craniologist Note Craniologist: Kitty Montez PA-C Date of Service: 07/02/18 Diagnosis: ESRD Procedure: Creation AV fistula left arm I was present for the entirety of the operative procedure. For further detail, please refer to operative report. Visit type - Case Type Case Type: ED Admission - Emergency Emergency Visit: Yes Care time: The patient presented to the Emergency Department on the above date and was hospitalized for further evaluation of their emergent condition. - New patient This patient is new to me today: Yes Date on this admission: 07/02/18
[2018-07-02] MEDS ORDERED: LACTATED RINGERS SOLUTION 1,000 ML IV SCH (11:30)
--- NOTE | 2018-07-02 11:50 | OP ---
DATE OF OPERATION: 07/02/2018 SURGEON: Moe Rebollar MD WATER POLLUTION CONTROL INSPECTOR: Kitty Montez PA-C PROCEDURE: Creation arteriovenous fistula, left arm. PREOPERATIVE DIAGNOSIS: Renal failure. POSTOPERATIVE DIAGNOSIS: Renal failure. ANESTHESIA: Fractional. ANESTHESIOLOGIST: Parbhu Valles MD OPERATIVE FINDINGS: The antecubital vein was patent. OPERATIVE PROCEDURE: Following routine patient identification with site and side verification, intravenous sedation was established. The left arm was prepped with ChloraPrep. A timeout was performed. One-percent lidocaine was infiltrated in the antecubital fossa and a longitudinal incision made. The antecubital vein was mobilized. Small side branches were ligated with silk ties and divided. The vein was ligated distally and incised. It was distended with heparin and papaverine solution. No. 5 and No. 8 feeding tubes were passed proximally into the cephalic vein of the upper arm without resistance. The deep branches were then ligated as well as the basilic branch. The wound was then deepened through the muscle fascia. The brachial artery was identified and was mobilized from the surrounding tissues. It was encircled proximally and distally with vesseloops. The artery was small diameter suggesting it may be a branch of the brachial artery but had a good pulse. The artery was occluded with vesseloops and opened on exposed surface with a 6-mm arteriotomy. Inflow and outflow were checked and found to be pulsatile. The artery was flushed with heparin solution. The vein was then freed and spatulated and anastomosed to the side of the artery with running suture of 6-0 Prolene. Prior to completion of the suture line, the artery was allowed to back bleed and flush. The vein was flushed as well. Suture line was completed, and all vessels were released. There was good flow through the anastomosis with a palpable thrill proximally in the vein. Bleeding from the suture line was controlled with surgicel. Hemostasis was achieved. The wound was closed with interrupted suture of 3-0 Vicryl and skin mg. Sterile dressings were applied. The patient was taken to the recovery room in stable condition. Luana [id number]
[2018-07-02 13:51] VITALS: BP 123/80; PULSE 86; TEMP 97.8
== END 2018-07-02 13:25 | disposition home or self-care (01) ==
LOC: JER 08:06 → JASUSAT 08:51
PROVIDERS: ATTEND Surgery
PROC: 03180ZD Bypass Left Brachial Artery to Upper Arm Vein, Open Approach (ICD-10-PCS; principal; 2018-07-02 08:00)
DX: I12.0 Hypertensive chronic kidney disease with stage 5 chronic kidney disease or end stage renal disease (principal); N18.6 End stage renal disease; Z99.2 Dependence on renal dialysis
CPT/HCPCS: 36415; 80053; 84702; 85025; 85610; 85730; 86850; 86900; 86901; 94760; 99284-25; J1644

== ENCOUNTER 2018-09-11 09:24 | Emergency (ER) | payer OTHER ==
[2018-09-11 09:40] VITALS: BP 97/66; PULSE 89; TEMP 97.9; BMI 20.5
--- NOTE | 2018-09-11 10:43 | PDOC ---
Documentation entered by Christine Best SCRIBE, acting as scribe for Estefanía Ceja MD. Estefanía Ceja MD: This documentation has been prepared by the scribe, Christine Best SCRIBE, under my direction and personally reviewed by me in its entirety. I confirm that the documentation accurately reflects all work, treatment, procedures, and medical decision making performed by me. History of Present Illness - General Chief Complaint: Dialysis Shunt Problem Stated Complaint: SENT BY DOC Time Seen by Provider: 09/11/18 10:04 History Source: Patient Exam Limitations: No Limitations - History of Present Illness Initial Comments: 09/11/18 11:00 The patient is a 32-year-old female, with a past medical history of HTN, ESRD ( on HD M/W/F), who presents to the ED for RT-sided dialysis port catheter removal today by Dr. Rebollar. The patient reports that she went to Dr. Rebollar;s office this morning and was told to report to the ED. The patient took her morning meds, but did not get dialyzed today. She usually goes to the HD center at 10AM. The patient denies any fevers, chills, nausea, vomiting, diarrhea, or abdominal pain. Denies any chest pain or shortness of breath. Denies any urinary symptoms. Allergies: NKA Surgical History: Abdominal surgery, cholecystectomy, LT AVF placement, RT- sided chest wall port catheter placement. Social History: None reported. Vascular Surgeon: Dr. Rebollar Past History - Past Medical History Allergies/Adverse Reactions: Allergies Allergy/AdvReac Type Severity Reaction Status Date / Time No Known Allergies Allergy Verified 09/11/18 09:37 Home Medications: Ambulatory Orders Acetaminophen [Tylenol] 625 mg PO Q6H PRN #30 tablet 06/07/18 Calcitriol [Calcitriol -] 0.5 mcg PO DAILY #30 capsule 06/07/18 Calcium Acetate [Phoslo -] 667 mg PO TIDCM #30 capsule 06/07/18 Labetalol HCl 100 mg PO BID #60 tablet 06/07/18 Nifedipine ER [Procardia XL -] 30 mg PO BID #60 tab.er.24 06/07/18 Acetaminophen W/ Codeine #3 [Tylenol # 3 -] 1 tab PO Q6H PRN #10 tablet MDD 4 Anemia: No Asthma: No Cancer: No Cardiac Disorders: No CVA: No COPD: No CHF: No Dementia: No Diabetes: No GI Disorders: No Disorders: No HTN: Yes Hypercholesterolemia: No Liver Disease: No Seizures: No Thyroid Disease: No Other medical history: ESRD, DIALYSIS - Surgical History Abdominal Surgery: Yes Appendectomy: No Cardiac Surgery: No Cholecystectomy: Yes Lung Surgery: No Neurologic Surgery: No - Immunization History Immunization Up to Date: No - Suicide/Smoking/Psychosocial Hx Smoking History: Never smoked Have you smoked in the past 12 months: No Cigars Per Day: 0 Hx Alcohol Use: No Drug/Substance Use Hx: No Substance Use Type: None Review of Systems - Review of Systems Able to Perform ROS?: Yes Comments:: 09/11/18 11:07 Constitutional: no fevers or chills. HEENT: no headache or dizziness. CVS: no cp or syncope. no palpitations Resp: no sob. No cough. Gastrointestinal: no abdominal pain, nausea or vomiting. MUSCULOSKELETAL: No joint pain and swelling. No neck or back pain. SKIN: no redness or skin changes, no discharge, no rash. No wounds. Hematologic: no easy bruising/bleeding. NEUROLOGIC: No headache, dizziness, LOC or altered mental status. No weakness, numbness or tingling. Psych: no anxiety or depression Allergic/Immunologic: no allergies All other systems reviewed and negative, or as documented in HPI. 09/11/18 11:20 *Physical Exam - Vital Signs Last Vital Signs Temp Pulse Resp BP Pulse Ox 97.9 F 89 18 97/66 100 09/11/18 09:37 09/11/18 09:37 09/11/18 09:37 09/11/18 09:37 09/11/18 09:37 - Physical Exam Comments: 09/11/18 11:07 General: Well appearing, awake and alert, NAD. HEENT: NCAT, PERRL, EOMI, clear conjunctiva, anicteric, moist mucus membranes, clear oropharynx, no oral lesions.. Neck: neck supple, FROM Resp: CTAB, normal and even respirations, no respiratory distress CVS: RRR, no murmurs, 2+ peripheral pulses throughout, no peripheral edema Chest: right anterior chest wall permacath in place, nontender, with overlying dressings Abdomen: soft, NTND Back: nontender, normal inspection and ROM MSK: no edema, LANIER x4, ROM intact. No clubbing or cyanosis. normal bulk and tone. EXT: (+)RT upper chest wall port catheter, LUE AVF with palpable thrill. Neuro: alert, no focal neuro deficits. Skin: warm and well perfused, cap refill <2 sec, normal color for ethnicity, 2+ radialis pulses. 09/11/18 11:20 Medical Decision Making - Medical Decision Making 09/11/18 10:39 History of physical exam is documented. Vital signs reviewed, within normal limits. Patient is well-appearing. She did miss her dialysis at 10 AM this morning due to her being told she was going to the ED for catheter removal. Her left upper extremity AV fistula is functional with palpable thrill. Call to surgical PA with Dr. Rebollar, spoke with Neel, who stated she was planned to go to Dr Rebollar's office for removal of permacatheter, not the ED. pt took all her meds this morning, antihypertensive regimen labetalol and nifedepine. will discharge from here, go to office, and resume her HD today before closing time she is asymptomatic at this time, doubt acute pathology or complications or indication for further workup, as this can be performed in the outpatient setting as discussed information provided in Erit[place]an 09/11/18 11:21 *DC/Admit/Observation/Transfer Diagnosis at time of Disposition: ESRD (end stage renal disease) on dialysis - Discharge Dispostion Disposition: HOME Condition at time of disposition: Good Decision to Admit order: No - Referrals Referrals: Moe Rebollar MD [Staff Physician] - - Patient Instructions Printed Discharge Instructions: Chronic Renal Failure Additional Instructions: You were referred to the outpatient office with Dr. Rebollar your vascular surgeon who placed the catheter as well your fistula to go therefore your removal of your port catheter, you do not require an emergency department visit at this time. You're to resume your dialysis subsequently they sure to go to the facility way usually get your dialysis before 5 PM today make sure you go to his office after your discharge Se lo remiti a la consulta ambulatoria con el Dr. Rebollar, clinton cirujano vascular, quien coloc el catter y la fstula para clinton extraccin, por lo que no necesita melissa visita al departamento de emergencia en agus momento. Usted debe reanudar clinton dilisis posteriormente; de ??seguro, irn a las instalaciones donde normalmente se realizar la dilisis antes de las 5 p.m. Asegrese de ir a clinton oficina despus de clinton isabel Print Language: PRYDEINIG - Post Discharge Activity
== END 2018-09-11 11:17 | disposition home or self-care (01) ==
LOC: JER 09:24
DX: I12.0 Hypertensive chronic kidney disease with stage 5 chronic kidney disease or end stage renal disease (principal); N18.6 End stage renal disease; Z99.2 Dependence on renal dialysis
CPT/HCPCS: 99281-25

== ENCOUNTER 2019-04-12 09:20 | Emergency (ER) | payer OTHER ==
[2019-04-12 09:39] VITALS: TEMP 98.6; BMI 20.5
--- NOTE | 2019-04-12 10:17 | PDOC ---
History of Present Illness - General Chief Complaint: Vaginal Bleeding Stated Complaint: VAGINAL BLEEDING Time Seen by Provider: 04/12/19 09:43 Past History - Past Medical History Allergies/Adverse Reactions: Allergies Allergy/AdvReac Type Severity Reaction Status Date / Time No Known Allergies Allergy Verified 09/11/18 09:37 Anemia: No Asthma: No Cancer: No Cardiac Disorders: No CVA: No COPD: No CHF: No Dementia: No Diabetes: No GI Disorders: No Disorders: No HTN: Yes Hypercholesterolemia: No Liver Disease: No Seizures: No Thyroid Disease: No - Surgical History Abdominal Surgery: Yes Appendectomy: No Cardiac Surgery: No Cholecystectomy: Yes Lung Surgery: No Neurologic Surgery: No - Immunization History Immunization Up to Date: No - Psycho Social/Smoking Cessation Hx Smoking History: Never smoked Have you smoked in the past 12 months: No Cigars Per Day: 0 Hx Alcohol Use: No Drug/Substance Use Hx: No Substance Use Type: None Abd/GI Specific PMHX - Complaint Specific PMHX Diverticulitis: No Gall Bladder Disease: No *Physical Exam - Vital Signs Last Vital Signs Temp Pulse Resp BP Pulse Ox 98.6 F 82 16 171/87 H 99 04/12/19 09:36 04/12/19 09:36 04/12/19 09:36 04/12/19 09:36 04/12/19 09:36
--- NOTE | 2019-04-12 11:39 | PDOC ---
History of Present Illness - History of Present Illness Initial Comments: 04/12/19 11:39 HPI: 33 y/o wiht hx of HTN and ESRD on HD MWF presenting with painless vaginal bleeding for 2 weeks. She said her menstrual cycle started on 03/14/19 however bleeding has persisted past normal timeframe. She is here today because over the past 2 days the flow has increased and there are not large blood clots. She states she normally has a regular cycle and only changes pads 3x/day for 1 week. Yesterday she required 6-7 pads, last night required 3 pads and had to get up from sleep, and this morning already 2 pads. She denies fever, chills, vaginal pain, vaginal discharge, foul odor, abd pain, chest pain, SOB, n/v, dysuria, BPR. She is sexually active with just her and has a depo- provera and does not believe she is . PMHx: as noted above ROS: as noted SHx: Denies tobacco use; no alcohol use; no rec drugs Allergies: NKDA ROS: GENERAL/CONSTITUTIONAL: No fever or chills. No weakness. HEAD, EYES, EARS, NOSE AND THROAT: No change in vision. No ear pain or discharge. No sore throat. CARDIOVASCULAR: No chest pain or shortness of breath RESPIRATORY: No cough, wheezing, or hemoptysis. GASTROINTESTINAL: No nausea, vomiting, diarrhea or constipation. GENITOURINARY: No dysuria, frequency, or change in urination. MUSCULOSKELETAL: No joint or muscle swelling or pain. No neck or back pain. SKIN: No rash NEUROLOGIC: No headache, vertigo, loss of consciousness, or change in strength/ sensation. ENDOCRINE: No increased thirst. No abnormal weight change HEMATOLOGIC/LYMPHATIC: No anemia, easy bleeding, or history of blood clots. ALLERGIC/IMMUNOLOGIC: No hives or skin allergy. PE: GENERAL: Awake, alert, and fully oriented, no acute distress HEAD: No signs of trauma, normocephalic, atraumatic EYES: EOMI, sclera anicteric, conjunctiva clear ENT: Auricles normal inspection, hearing grossly normal, nares patent, oropharynx clear without exudates. Moist mucosa NECK: Normal ROM, no lymphadenopathy LUNGS: No increased work of breathing, symmetrical chest rise, clear to auscultation bilaterally, no wheezes, crackles or rhonchi HEART: Regular rate and rhythm, normal S1 and S2, no murmurs, peripheral pulses 2+ and equal bilaterally. ABDOMEN: Soft, nondistended, nontender, normoactive bowel sounds. No guarding, no rebound. No masses. No CVAT GENITOURINARY: Nml appearing external genitalia, with absent lesions. Vaginal vault with pooling of blood, but no discharge. Cervical os closed and without lesions. Neg CMT on BM. Neg adenexal ttp, or mass palpated. EXTREMITIES: Normal inspection, Normal range of motion, no edema. No clubbing or cyanosis. NEUROLOGICAL: Cranial nerves II through XII grossly intact. Normal speech, normal gait, no focal sensorimotor deficits SKIN: Warm, Dry, normal turgor, no rashes or lesions noted <Miquel Martinez - Last Filed: 04/12/19 13:37> <Estefanía Ceja - Last Filed: 04/12/19 14:00> - General Chief Complaint: Vaginal Bleeding Stated Complaint: VAGINAL BLEEDING Time Seen by Provider: 04/12/19 09:43 Past History - Past Medical History Anemia: No Asthma: No Cancer: No Cardiac Disorders: No CVA: No COPD: No CHF: No Dementia: No Diabetes: No GI Disorders: No Disorders: No HTN: Yes Hypercholesterolemia: No Liver Disease: No Seizures: No Thyroid Disease: No - Surgical History Abdominal Surgery: Yes Appendectomy: No Cardiac Surgery: No Cholecystectomy: Yes Lung Surgery: No Neurologic Surgery: No - Immunization History Immunization Up to Date: No - Psycho Social/Smoking Cessation Hx Smoking History: Never smoked Have you smoked in the past 12 months: No Cigars Per Day: 0 Hx Alcohol Use: No Drug/Substance Use Hx: No Substance Use Type: None <Miquel Martinez - Last Filed: 04/12/19 13:37> <Estefanía Ceja - Last Filed: 04/12/19 14:00> - Past Medical History Allergies/Adverse Reactions: Allergies Allergy/AdvReac Type Severity Reaction Status Date / Time No Known Allergies Allergy Verified 09/11/18 09:37 *Physical Exam - Vital Signs Last Vital Signs Temp Pulse Resp BP Pulse Ox 98.6 F 82 16 171/87 H 99 04/12/19 09:36 04/12/19 09:36 04/12/19 09:36 04/12/19 09:36 04/12/19 09:36 <Miquel Martinez - Last Filed: 04/12/19 13:37> - Vital Signs Last Vital Signs Temp Pulse Resp BP Pulse Ox 98.6 F 82 16 171/87 H 99 04/12/19 09:36 04/12/19 09:36 04/12/19 09:36 04/12/19 09:36 04/12/19 09:36 <Estefanía Ceja - Last Filed: 04/12/19 14:00> ED Treatment Course - LABORATORY CBC & Chemistry Diagram: 04/12/19 10:10 04/12/19 10:10 - RADIOLOGY Radiology Studies Ordered: Category Date Time Status TRANSVAGINAL ULTRASOUND US [US] Stat Ultrasound 04/12/19 11:02 Ordered <Miquel Martinez - Last Filed: 04/12/19 13:37> - LABORATORY CBC & Chemistry Diagram: 04/12/19 10:10 04/12/19 10:10 - ADDITIONAL ORDERS Additional order review: Laboratory Results 04/12/19 04/12/19 04/12/19 10:35 10:10 10:10 PT with INR 12.40 INR 1.05 PTT (Actin FS) 35.6 Sodium Potassium Chloride Carbon Dioxide Anion Gap BUN Creatinine Est GFR (CKD-EPI)AfAm Est GFR (CKD-EPI)NonAf Random Glucose Calcium Total Bilirubin AST ALT Alkaline Phosphatase Total Protein Albumin Serum , Qual Negative Urine HCG, Qual Negative Blood Type Antibody Screen 04/12/19 04/12/19 10:10 10:10 PT with INR INR PTT (Actin FS) Sodium 141 Potassium 4.3 Chloride 109 H Carbon Dioxide 25 Anion Gap 8 BUN 37.0 H Creatinine 5.9 H Est GFR (CKD-EPI)AfAm 9.89 Est GFR (CKD-EPI)NonAf 8.53 Random Glucose 84 Calcium 7.8 L Total Bilirubin 0.6 AST 15 ALT 13 Alkaline Phosphatase 80 Total Protein 6.8 Albumin 3.4 Serum , Qual Urine HCG, Qual Blood Type O POSITIVE Antibody Screen Negative 04/12/19 10:10 RBC 3.41 L MCV 97.9 H MCHC 33.7 RDW 13.2 D MPV 7.3 L Neutrophils % 74.8 Lymphocytes % 15.9 D Monocytes % 5.9 Eosinophils % 2.7 D Basophils % 0.7 <CejaJose CruzEstefaníaalvin Epstein - Last Filed: 04/12/19 14:00> Medical Decision Making - Medical Decision Making 04/12/19 11:44 33 y/o wiht hx of HTN and ESRD on HD MWF presenting with painless vaginal bleeding for 2 weeks with increased bleeding and clots x2 days. BP 171/87, AF. PE with blood in the vaginal vault. -cbc, cmp, coags, coags, t&s -TVUS 04/12/19 13:37 FINDINGS: The uterus measures 8.4 x 4.3 x 5.3 cm. The endometrium measures 0.5 cm in AP dimension. The right ovary measures 2.7 x 1.3 x 2.4 cm.. Including a 1.4 cm simple right ovarian cyst The left ovary measures 4.8 x 3.4 x 3.6 cm.. Including a 3.5 cm simple left ovarian cyst Doppler examination unremarkable. No evidence of ovarian torsion There are no adnexal masses. There is no free fluid in the pelvis. IMPRESSION Bilateral ovarian cysts. Recommend 3 month follow-up to assess stability labs unremarkable negative upreg discussed results with patient and return pcxns; she is comfortable with DC and followup with PCP and obgyn <Miquel Martinez - Last Filed: 04/12/19 13:37> Discharge - Discharge Information Problems reviewed: Yes <Miquel Martinez - Last Filed: 04/12/19 13:37> <Estefanía Ceja - Last Filed: 04/12/19 14:00> - Discharge Information Clinical Impression/Diagnosis: Vaginal bleeding Condition: Stable Disposition: HOME - Follow up/Referral Referrals: Zabrina Gaytan MD [Staff Physician] - Dieter Meng MD [Staff Physician] - Hemant Lowry MD [Staff Physician] - - Patient Discharge Instructions Patient Printed Discharge Instructions: DI for Vaginal Bleeding Additional Instructions: Return to the ED if new or worsening symptoms including worsening vaginal bleeding, increased abdominal pain or pelvic pain, fevers, fainting. Please followup with your PCP and your ObGyn within 48 hours for further evaluation of persistent vaginal bleeding. Regrese al servicio de urgencias si presenta sntomas nuevos o que empeoran, latesha empeoramiento del sangrado vaginal, aumento del dolor abdominal o dolor plvico, fiebre, desmayos. Aydin un seguimiento con clinton PCP y clinton ObGyn dentro de las 48 horas para melissa evaluacin adicional del sangrado vaginal persistente. Print Language: [id number]
--- NOTE | 2019-04-12 11:39 | PDOC ---
Attending Attestation - Resident Resident Name: Miquel Martinez - ED Attending Attestation I have performed the following: I have examined & evaluated the patient, The case was reviewed & discussed with the resident, I agree w/resident's findings & plan - HPI HPI: 04/12/19 12:42 33 y/o wiht hx of HTN and ESRD on HD MWF presenting with painless vaginal bleeding for 2 weeks. She said her menstrual cycle started on 03/14/19 however bleeding has persisted past normal timeframe. She is here today because over the past 2 days the flow has increased and there are not large blood clots. She states she normally has a regular cycle and only changes pads 3x/day for 1 week. Yesterday she required 6-7 pads, last night required 3 pads and had to get up from sleep, and this morning already 2 pads. She denies fever, chills, vaginal pain, vaginal discharge, foul odor, abd pain, chest pain, SOB, n/v, dysuria, BPR. She is sexually active with just her and has a depo- provera and does not believe she is . - Physicial Exam PE: 04/12/19 11:37 Agree with the resident's HPI and PE as documented in the electronic medical record. NAD, well appearing, EOMI, PERRL, nl conjunctiva, anicteric; neck supple. lungs clear, RRR, abdomen soft nontender. no rebound, guarding. Back nontender. LANIER x4, no focal neuro deficits. No peripheral edema. normal color for ethnicity , WWP. exam, chaperoned resident, see note and here: normal external genitalia, no lesions, blood clots in vaginal vault, no CMT, no adnexal tenderness. Smooth and pink cervix, closed. - Medical Decision Making 04/12/19 11:38 Vital Signs Temp Pulse Resp BP Pulse Ox 98.6 F 82 16 171/87 H 99 04/12/19 09:36 04/12/19 09:36 04/12/19 09:36 04/12/19 09:36 04/12/19 09:36 DDx female abdominal pain/VB: ovarian cyst, ovarian torsion, TOA, appy, UTI, pyelonephritis, STD/PID, Mittelschmerz, anemia, electrolyte/metabolic derangements, DUB, fibroids VS wnl, normotensive, no tachy or hypoxia/respiratory distress. abdomen benign on reeval and no peritoneal findings, no VB here, controlled coags wnl CBC/chem wnl, H/H appropriate, ESRD at baseline neg preg test TVUS to check for fibroid/structural abnormalities. Transvaginal ultrasound with bilateral ovarian cysts, no evidence of torsion, no significant free fluid or adnexal masses in the pelvis, cysts are less than 4 cm. Could be hormonal related that this could be causing her dysfunctional uterine bleeding. 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 04/12/19 12:42 04/12/19 13:58 04/12/19 13:59
[2019-04-12 11:44] LABS: BASO % 0.7 % (0-2.0); EOS % 2.7 % (0-4.5); HEMATOCRIT 33.4 % (32.4-45.2); HEMOGLOBIN 11.3 GM/dL (10.7-15.3); LYMPH % 15.9 % (8-40); MCHC 33.7 g/dl (32.0-36.0); MEAN CELL VOLUME 97.9 fl (80-96); MEAN PLT VOLUME 7.3 fl (7.5-11.1); MONO % 5.9 % (3.8-10.2); NEUT % 74.8 % (42.8-82.8); PLATELET COUNT 276 K/MM3 (134-434); RBC 3.41 M/mm3 (3.60-5.2); RDW 13.2 % (11.6-15.6); WHITE BLOOD COUNT 8.1 K/mm3 (4.0-10.0)
[2019-04-12 12:04] LABS: ALBUMIN 3.4 g/dl (3.4-5.0); BILIRUBIN,TOTAL 0.6 mg/dL (0.2-1); CALCIUM 7.8 mg/dL (8.5-10.1); CREATININE 5.9 mg/dL (0.55-1.3); POTASSIUM 4.3 mmol/L (3.5-5.1); TOT PROT 6.8 g/dl (6.4-8.2)
[2019-04-12 12:07] LABS: INR 1.05 (0.83-1.09); PROTHROMBIN TIME (PATIENT) 12.4 SEC (9.7-13.0)
[2019-04-12 12:10] LABS: ACTIVATED PTT 35.6 SECONDS (25.2-36.5)
[2019-04-12 14:11] VITALS: BP 164/98; PULSE 88
== END 2019-04-12 14:11 | disposition home or self-care (01) ==
LOC: JER 09:20
DX: N93.8 Other specified abnormal uterine and vaginal bleeding (principal); N83.201 Unspecified ovarian cyst, right side; N83.202 Unspecified ovarian cyst, left side; I12.0 Hypertensive chronic kidney disease with stage 5 chronic kidney disease or end stage renal disease; N18.6 End stage renal disease; N17.8 Other acute kidney failure; Z99.2 Dependence on renal dialysis
CPT/HCPCS: 36415; 76830-TC; 80053; 84703; 85025; 85610; 85730; 86850; 86900; 86901; 99283-25

== ENCOUNTER 2021-07-04 19:11 | Observation (INO) | payer OTHER ==
[2021-07-04 20:55] LABS: BASO % 0.4 % (0-2.0); EOS % 1.7 % (0-4.5); HEMATOCRIT 29.6 % (32.4-45.2); HEMOGLOBIN 10.2 GM/dL (10.7-15.3); LYMPH % 8.4 % (8-40); MCH 33.4 pg (25.7-33.7); MCHC 34.4 g/dl (32.0-36.0); MEAN CELL VOLUME 97.2 fl (80-96); MEAN PLT VOLUME 6.9 fl (7.5-11.1); MONO % 6.6 % (3.8-10.2); NEUT % 82.9 % (42.8-82.8); PLATELET COUNT 246 10^3/uL (134-434); RBC 3.04 M/mm3 (3.60-5.2); RDW 13.1 % (11.6-15.6); WHITE BLOOD COUNT 9.3 K/mm3 (4.0-10.0)
[2021-07-04 20:56] LABS: VENOUS BASE EXCESS 2.2 mmol/L (-2-2); VENOUS PCO2 43.1 mmHg (38-52); VENOUS PH 7.416 (7.310-7.410)
[2021-07-04 21:01] LABS: INR 1.09 (0.83-1.09); PROTHROMBIN TIME (PATIENT) 12.6 SEC (9.7-13.0)
[2021-07-04 21:04] LABS: ACTIVATED PTT 30.3 SECONDS (25.2-36.5)
[2021-07-04 21:20] LABS: CALCIUM 8.1 mg/dL (8.5-10.1)
[2021-07-04 21:21] LABS: ALBUMIN 2.9 g/dl (3.4-5.0); BLOOD UREA NITROGEN 45.4 mg/dL (7-18)
[2021-07-04 21:25] LABS: BILIRUBIN,TOTAL 0.3 mg/dL (0.2-1)
[2021-07-05] MEDS ORDERED: LABETALOL HCL 100 MG TABLET (FP) PO ONE (02:20)
[2021-07-05] MEDS ORDERED: NIFEdipine E.R. 30 MG TABLET PO ONE (02:30)
[2021-07-05] MEDS ORDERED: LABETALOL HCL 100 MG TABLET (FP) ONE ×2 (02:40→09:15)
[2021-07-05] MEDS ORDERED: NIFEdipine E.R. 30 MG TABLET ONE ×2 (02:40→09:15)
[2021-07-05] MEDS ORDERED: ACETAMINOPHEN 325 MG TABLET (FP) PO PRN (04:02)
[2021-07-05] MEDS ORDERED: HEPARIN NA (PORCINE) 5,000 UNITS/ML 1ML VIAL ONE ×2 (07:24→13:33)
[2021-07-05] MEDS: HEPARIN NA (PORCINE) 5,000 UNITS/ML 1ML VIAL SQ SCH ×3 (07:33→21:39)
[2021-07-05 09:03] LABS: BASO % 0.9 % (0-2.0); EOS % 2.3 % (0-4.5); HEMATOCRIT 29.6 % (32.4-45.2); HEMOGLOBIN 10.3 GM/dL (10.7-15.3); MCH 33.8 pg (25.7-33.7); MCHC 34.9 g/dl (32.0-36.0); MEAN CELL VOLUME 96.8 fl (80-96); MONO % 7.2 % (3.8-10.2); NEUT % 75.6 % (42.8-82.8); PLATELET COUNT 246 10^3/uL (134-434); RBC 3.06 M/mm3 (3.60-5.2); RDW 13.4 % (11.6-15.6); WHITE BLOOD COUNT 5.9 K/mm3 (4.0-10.0)
[2021-07-05 09:19] LABS: EPI CELLS 6 /uL (0-25.1); HYALINE CASTS 0 /uL (0-3.1); URINE APPEARANCE CLEAR; URINE BACTERIA 2370 /uL (0-1359); URINE BILIRUBIN NEGATIVE (NEGATIVE); URINE COLOR YELLOW; URINE GLUCOSE (UA) NEGATIVE (NEGATIVE); URINE KETONE NEGATIVE (NEGATIVE); URINE LEUK ESTERASE NEGATIVE (NEGATIVE); URINE NITRITE NEGATIVE (NEGATIVE); URINE PROTEIN 2+ (NEGATIVE); URINE RBC 1 /uL (0-23.9); URINE UROBILINOGEN 0.2 mg/dL (0.2-1.0); URINE WBC 12 /uL (0-25.8)
[2021-07-05] MEDS: LABETALOL HCL 100 MG TABLET (FP) PO SCH ×2 (09:22→21:38)
[2021-07-05] MEDS: NIFEdipine E.R. 30 MG TABLET PO SCH (09:22)
[2021-07-05 09:30] LABS: CALCIUM 8.2 mg/dL (8.5-10.1)
[2021-07-05 09:31] LABS: BLOOD UREA NITROGEN 51.6 mg/dL (7-18); MAGNESIUM 2.2 mg/dL (1.8-2.4)
[2021-07-05 09:33] LABS: PHOSPHOROUS 5.6 mg/dL (2.5-4.9)
[2021-07-05 09:35] LABS: BILIRUBIN,TOTAL 0.4 mg/dL (0.2-1); TOT PROT 6.1 g/dl (6.4-8.2)
[2021-07-05 13:10] LABS: N-TERMINAL BNP 59123.9 pg/ml (5-125)
[2021-07-05] MEDS ORDERED: SODIUM CHLORIDE 250 ML IV PRN (17:45)
[2021-07-05 21:52] VITALS: BMI 23.0
[2021-07-06] MEDS: HEPARIN NA (PORCINE) 5,000 UNITS/ML 1ML VIAL SQ SCH ×2 (05:57→14:15)
[2021-07-06] MEDS ORDERED: HEPARIN NA (PORCINE) 5,000 UNITS/ML 1ML VIAL IVPUSH ONE (07:00)
[2021-07-06 08:29] LABS: HEMATOCRIT 28.5 % (32.4-45.2); HEMOGLOBIN 9.6 GM/dL (10.7-15.3); MCH 32.7 pg (25.7-33.7); MCHC 33.7 g/dl (32.0-36.0); MEAN CELL VOLUME 97.1 fl (80-96); MEAN PLT VOLUME 7.2 fl (7.5-11.1); PLATELET COUNT 230 10^3/uL (134-434); RBC 2.94 M/mm3 (3.60-5.2); WHITE BLOOD COUNT 6.8 K/mm3 (4.0-10.0)
[2021-07-06 08:52] LABS: CHLORIDE 106 mmol/L (98-107); SODIUM 138 mmol/L (136-145)
[2021-07-06 08:56] LABS: ANION GAP 12 MMOL/L (8-16); CALCIUM 8.2 mg/dL (8.5-10.1); CO2 21 mmol/L (21-32); GLUCOSE,RANDOM 86 mg/dL (74-106)
[2021-07-06 08:57] LABS: BLOOD UREA NITROGEN 65.5 mg/dL (7-18)
[2021-07-06 09:00] LABS: CREATININE 8.2 mg/dL (0.55-1.3)
[2021-07-06] MEDS: NIFEdipine E.R. 30 MG TABLET PO SCH (10:28)
[2021-07-06] MEDS: LABETALOL HCL 100 MG TABLET (FP) PO SCH (14:15)
[2021-07-06 15:03] VITALS: BP 146/80; PULSE 83; TEMP 98.2
== END 2021-07-06 18:36 | disposition home or self-care (01) ==
LOC: JER 19:11 → JERBED 22:45 → J4S 07-05 21:26
PROVIDERS: ADMIT Hospitalist; ATTEND Nurse Practitioner Acute Care
PROC: 3E023GC Introduction of Other Therapeutic Substance into Muscle, Percutaneous Approach (ICD-10-PCS; principal; 2021-07-04)
PROC: 3E033GC Introduction of Other Therapeutic Substance into Peripheral Vein, Percutaneous Approach (ICD-10-PCS; 2021-07-04)
DX: I13.11 Hypertensive heart and chronic kidney disease without heart failure, with stage 5 chronic kidney disease, or end stage renal disease (principal); R10.13 Epigastric pain; J45.909 Unspecified asthma, uncomplicated; Z99.2 Dependence on renal dialysis; N18.6 End stage renal disease; Z86.16 Personal history of COVID-19; Z29.9 Encounter for prophylactic measures, unspecified; R06.02 Shortness of breath; R10.33 Periumbilical pain
CPT/HCPCS: 36415; 71045-TC-FY; 71046-TC-FY; 74176-TC; 76830-TC; 80048; 80053; 81003; 82550; 82803; 83690; 83735; 83880; 84100; 84443; 84484; 84703; 85025; 85027; 85610; 85730; 86803; 87086; 87340; 93005; 93010; 93306-TC; 93351; 96372; 96374; 99285-25; C9803; G0378; J1644; U0003; U0005

== ENCOUNTER 2022-03-14 13:06 | Inpatient (IN) | payer OTHER ==
[2022-03-14] MEDS ORDERED: ONDANSETRON 4 MG/2 ML VIAL IVPUSH ONE (14:16)
[2022-03-14] MEDS ORDERED: ACETAMINOPHEN 1000 MG/100 ML BAG IVPB ONE (14:17)
[2022-03-14] MEDS ORDERED: ACETAMINOPHEN INJECTION 100 ML IVPB ONE (14:23)
[2022-03-14] MEDS ORDERED: ONDANSETRON 4 MG/2 ML VIAL ONE ×2 (14:24→18:07)
[2022-03-14 14:41] LABS: HEMATOCRIT 34.7 % (32.4-45.2); HEMOGLOBIN 11.3 GM/dL (10.7-15.3); MCHC 32.5 g/dl (32.0-36.0); MEAN CELL VOLUME 98.5 fl (80-96); MEAN PLT VOLUME 7.1 fl (7.5-11.1); PLATELET COUNT 270 10^3/uL (134-434); RBC 3.53 M/mm3 (3.60-5.2); RDW 13.5 % (11.6-15.6); WHITE BLOOD COUNT 12.5 K/mm3 (4.0-10.0)
[2022-03-14 14:53] LABS: ACTIVATED PTT 34.2 SECONDS (25.2-36.5); INR 1.21 (0.83-1.09)
[2022-03-14] MEDS ORDERED: SODIUM CHLORIDE 1,000 ML IV ONE (14:53)
[2022-03-14 15:05] LABS: ANISOCYTOSIS 0; MACROCYTOSIS 0
[2022-03-14] MEDS ORDERED: METOCLOPRAMIDE HCL INJECTION 10 MG/2 ML VIAL IVPUSH ONE (15:05)
[2022-03-14 15:09] LABS: BLOOD UREA NITROGEN 56.9 mg/dL (7-18); CALCIUM 8.7 mg/dL (8.5-10.1)
[2022-03-14 15:10] LABS: ALBUMIN 3.2 g/dl (3.4-5.0)
[2022-03-14 15:13] LABS: CREATININE 6.9 mg/dL (0.55-1.3)
[2022-03-14] MEDS ORDERED: KETOROLAC TROMETHAMINE 15 MG/ML VIAL IVPUSH ONE (15:13)
[2022-03-14 15:14] LABS: BILIRUBIN,TOTAL 0.9 mg/dL (0.2-1); TOT PROT 6.5 g/dl (6.4-8.2)
[2022-03-14] MEDS ORDERED: NIFEdipine 10 MG CAPSULE (FP) PO ONE (15:22)
[2022-03-14] MEDS ORDERED: METOCLOPRAMIDE HCL INJECTION 10 MG/2 ML VIAL ONE (15:34)
[2022-03-14] MEDS ORDERED: NIFEdipine E.R. 30 MG TABLET ONE (15:34)
[2022-03-14] MEDS ORDERED: KETOROLAC TROMETHAMINE 15 MG/ML VIAL ONE (15:35)
[2022-03-14] MEDS ORDERED: ONDANSETRON 4 MG/2 ML VIAL IVPUSH PRN (17:26)
[2022-03-14] MEDS ORDERED: ALBUTEROL SO4 HFA INHALER IH PRN (17:45)
[2022-03-14] MEDS ORDERED: LABETALOL HCL 5 MG/1 ML (100MG/20 ML VIAL) IVPUSH ONE ×2 (17:46→20:44)
[2022-03-14] MEDS ORDERED: FUROSEMIDE 40 MG/4 ML INJECTABLE VIAL IVPUSH ONE (17:54)
[2022-03-14] MEDS ORDERED: LABETALOL HCL 5 MG/1 ML (100MG/20 ML VIAL) ONE ×2 (18:07→21:14)
[2022-03-14] MEDS ORDERED: FUROSEMIDE 40 MG/4 ML INJECTABLE VIAL ONE (18:07)
[2022-03-14 20:10] LABS: EPI CELLS 7 /uL (0-25.1); HYALINE CASTS 0 /uL (0-3.1); URINE APPEARANCE CLEAR; URINE BACTERIA 3203 /uL (0-1359); URINE BILIRUBIN NEGATIVE (NEGATIVE); URINE COLOR YELLOW; URINE GLUCOSE (UA) TRACE (NEGATIVE); URINE KETONE NEGATIVE (NEGATIVE); URINE LEUK ESTERASE NEGATIVE (NEGATIVE); URINE NITRITE NEGATIVE (NEGATIVE); URINE PROTEIN 3+ (NEGATIVE); URINE RBC 4 /uL (0-23.9); URINE UROBILINOGEN 0.2 mg/dL (0.2-1.0); URINE WBC 5 /uL (0-25.8)
[2022-03-14] MEDS: OSELTAMIVIR PHOSPHATE 30 MG CAPSULE PO SCH (21:52)
[2022-03-14] MEDS: HEPARIN NA (PORCINE) 5,000 UNITS/ML 1ML VIAL SQ SCH (21:52)
[2022-03-15] MEDS ORDERED: hydrALAZINE HCL 20 MG/ML VIAL IM PRN (02:10)
[2022-03-15] MEDS ORDERED: hydrALAZINE HCL 20 MG/ML VIAL IVPUSH PRN ×2 (02:32→06:16)
[2022-03-15] MEDS ORDERED: hydrALAZINE HCL 20 MG/ML VIAL IVPUSH ONE (06:12)
[2022-03-15] MEDS ORDERED: SODIUM CHLORIDE 250 ML IV PRN (06:22)
[2022-03-15] MEDS: HEPARIN NA (PORCINE) 5,000 UNITS/ML 1ML VIAL SQ SCH ×2 (06:28→21:21)
[2022-03-15 08:18] LABS: CHLORIDE 102 mmol/L (98-107); SODIUM 137 mmol/L (136-145)
[2022-03-15 08:24] LABS: CALCIUM 8.2 mg/dL (8.5-10.1)
[2022-03-15 08:25] LABS: ANION GAP 15 MMOL/L (8-16); CO2 21 mmol/L (21-32); GLUCOSE,RANDOM 116 mg/dL (74-106); MAGNESIUM 2.1 mg/dL (1.8-2.4)
[2022-03-15 08:26] LABS: CHOLESTEROL 141 mg/dL (50-200); SGOT/AST 39 U/L (15-37); SGPT/ALT 39 U/L (13-61)
[2022-03-15 08:28] LABS: ALK PHOS 93 U/L (45-117); BILIRUBIN,TOTAL 0.8 mg/dL (0.2-1); LDL CHOLESTEROL (ONLY SJRH) 69 mg/dL (5-100); PHOSPHOROUS 8.1 mg/dL (2.5-4.9); TOT PROT 6.1 g/dl (6.4-8.2); TRIGLYCERIDES 93 mg/dL (0-150)
[2022-03-15 08:30] LABS: HDL CHOLESTEROL 59 mg/dL (40-60)
[2022-03-15] MEDS ORDERED: hydrALAZINE HCL 20 MG/ML VIAL ONE ×2 (08:39→13:30)
[2022-03-15 08:47] LABS: CREATININE 7.5 mg/dL (0.55-1.3)
[2022-03-15] MEDS ORDERED: LABETALOL HCL 100 MG TABLET (FP) PO SCH (10:00)
[2022-03-15] MEDS ORDERED: NIFEdipine E.R. 30 MG TABLET PO SCH (10:00)
[2022-03-15] MEDS ORDERED: LABETALOL HCL 100 MG TABLET (FP) ONE ×2 (10:10→13:29)
[2022-03-15] MEDS ORDERED: NIFEdipine E.R. 30 MG TABLET ONE (10:10)
[2022-03-15] MEDS: OSELTAMIVIR PHOSPHATE 30 MG CAPSULE PO SCH (10:35)
[2022-03-15] MEDS: NIFEdipine E.R. 30 MG TABLET PO SCH (10:35)
[2022-03-15] MEDS ORDERED: CEFTRIAXONE 1 GM in DEXTROSE 5%-WATER - 50 ML IVPB ONE (11:00)
[2022-03-15 12:22] LABS: HEMOGLOBIN 11.7 GM/dL (10.7-15.3); MCH 32.5 pg (25.7-33.7); MCHC 32.5 g/dl (32.0-36.0); MEAN PLT VOLUME 7.8 fl (7.5-11.1); PLATELET COUNT 267 10^3/uL (134-434); RDW 13.3 % (11.6-15.6); WHITE BLOOD COUNT 10.3 K/mm3 (4.0-10.0)
[2022-03-15] MEDS ORDERED: ACETAMINOPHEN 325 MG TABLET (FP) PO ONE (12:40)
[2022-03-15] MEDS ORDERED: hydrALAZINE HCL 20 MG/ML VIAL IM ONE (12:41)
[2022-03-15] MEDS ORDERED: LABETALOL HCL 100 MG TABLET (FP) PO ONE (12:44)
[2022-03-15 12:51] LABS: ANISOCYTOSIS 1+; MACROCYTOSIS 1+
[2022-03-15] MEDS: ACETAMINOPHEN 325 MG TABLET (FP) PO PRN (20:31)
[2022-03-15] MEDS: LABETALOL HCL 200 MG TABLET (FP) PO SCH (21:22)
[2022-03-16] MEDS: HEPARIN NA (PORCINE) 5,000 UNITS/ML 1ML VIAL SQ SCH ×4 (05:52→21:04)
[2022-03-16] MEDS: NIFEdipine E.R. 30 MG TABLET PO SCH (09:26)
[2022-03-16] MEDS: LABETALOL HCL 200 MG TABLET (FP) PO SCH ×2 (09:26→21:05)
[2022-03-16] MEDS: OSELTAMIVIR PHOSPHATE 30 MG CAPSULE PO SCH (09:28)
[2022-03-16] MEDS ORDERED: NIFEdipine E.R 60 MG TABLET PO SCH (12:09)
[2022-03-16] MEDS ORDERED: SODIUM CHLORIDE 250 ML IV PRN (12:57)
[2022-03-16 13:03] VITALS: BMI 21.8
[2022-03-16] MEDS: ACETAMINOPHEN 325 MG TABLET (FP) PO PRN (14:55)
[2022-03-17] MEDS: HEPARIN NA (PORCINE) 5,000 UNITS/ML 1ML VIAL SQ SCH ×2 (05:51→14:52)
[2022-03-17] MEDS ORDERED: NIFEdipine E.R. 90 MG TABLET PO SCH (07:00)
[2022-03-17 08:40] VITALS: RESP 18
[2022-03-17 08:42] LABS: HEMATOCRIT 30.6 % (32.4-45.2); HEMOGLOBIN 10.6 GM/dL (10.7-15.3); MCH 33.8 pg (25.7-33.7); MCHC 34.7 g/dl (32.0-36.0); MEAN CELL VOLUME 97.6 fl (80-96); MEAN PLT VOLUME 7.2 fl (7.5-11.1); PLATELET COUNT 240 10^3/uL (134-434); RBC 3.14 M/mm3 (3.60-5.2); WHITE BLOOD COUNT 6.5 K/mm3 (4.0-10.0)
[2022-03-17 08:59] LABS: CHLORIDE 102 mmol/L (98-107); SODIUM 139 mmol/L (136-145)
[2022-03-17 09:00] LABS: CALCIUM 7.9 mg/dL (8.5-10.1)
[2022-03-17 09:01] LABS: ANION GAP 12 MMOL/L (8-16); BLOOD UREA NITROGEN 63.6 mg/dL (7-18); CO2 25 mmol/L (21-32); GLUCOSE,RANDOM 96 mg/dL (74-106)
[2022-03-17 09:07] LABS: CREATININE 8.1 mg/dL (0.55-1.3)
[2022-03-17] MEDS ORDERED: VITAMIN B COMP W-C 1 EA TABLET (NEPHRO-VITE) PO SCH (10:00)
[2022-03-17] MEDS: LABETALOL HCL 200 MG TABLET (FP) PO SCH (11:40)
[2022-03-17] MEDS: OSELTAMIVIR PHOSPHATE 30 MG CAPSULE PO SCH (11:43)
[2022-03-17 14:01] VITALS: TEMP 98.7
[2022-03-17] MEDS ORDERED: LISINOPRIL 5 MG TABLET PO SCH (14:15)
[2022-03-17] MEDS ORDERED: LISINOPRIL 10 MG TABLET PO SCH (14:55)
[2022-03-17 16:31] VITALS: BP 158/84; PULSE 78
== END 2022-03-17 17:47 | disposition home or self-care (01) | DRG 199 ==
LOC: JER 13:06 → JERBED 17:13 → J4S 03-15 18:09
PROVIDERS: ADMIT Internal Medicine; ATTEND Internal Medicine
PROC: 5A1D70Z Performance of Urinary Filtration, Intermittent, Less than 6 Hours Per Day (ICD-10-PCS; principal; 2022-03-17)
DX: I16.1 Hypertensive emergency (principal); N18.6 End stage renal disease; I13.10 Hypertensive heart and chronic kidney disease without heart failure, with stage 1 through stage 4 chronic kidney disease, or unspecified chronic kidney disease; D72.829 Elevated white blood cell count, unspecified; J10.1 Influenza due to other identified influenza virus with other respiratory manifestations; J45.909 Unspecified asthma, uncomplicated; N39.0 Urinary tract infection, site not specified; I13.0 Hypertensive heart and chronic kidney disease with heart failure and stage 1 through stage 4 chronic kidney disease, or unspecified chronic kidney disease; Z99.2 Dependence on renal dialysis
CPT/HCPCS: 0241U-QW; 36415; 70450-TC; 71045-TC-FY; 80048; 80053; 80061; 81003; 83735; 84100; 84443; 84484; 84703; 85025; 85027; 85610; 85730; 86803; 86850; 86900; 86901; 87040; 87086; 87340; 87517; 93005; 93010; 99285-25; J1644

== ENCOUNTER 2022-12-20 18:56 | Inpatient (IN) | payer OTHER ==
[2022-12-20] MEDS ORDERED: ACETAMINOPHEN INJECTION 100 ML IVPB ONE (19:45)
[2022-12-20] MEDS ORDERED: ONDANSETRON 4 MG/2 ML VIAL ONE (19:45)
[2022-12-20] MEDS ORDERED: FAMOTIDINE 20 MG/50 ML IVPB 20 MG/50 ML MG IVPB ONE (19:46)
[2022-12-20] MEDS ORDERED: ACETAMINOPHEN 1000 MG/100 ML BAG IVPB ONE (19:46)
[2022-12-20] MEDS ORDERED: ONDANSETRON 4 MG/2 ML VIAL IVPUSH ONE (19:46)
[2022-12-20] MEDS ORDERED: FAMOTIDINE 20 MG/50 ML IVPB 50 ML IVPB ONE (19:51)
[2022-12-20 20:07] LABS: VENOUS BASE EXCESS -0.7 mmol/L (-2-2); VENOUS O2 SATURATION 93.2 % (70-80); VENOUS PCO2 40.6 mmHg (38-52); VENOUS PH 7.393 (7.310-7.410)
[2022-12-20] MEDS ORDERED: VANCOMYCIN 1,000 MG in DEXTROSE 5%-WATER - 250 ML IVPB ONE (20:13)
[2022-12-20] MEDS ORDERED: PIPERACILLIN/TAZOB 2.25 GM 2.25 GM in DEXTROSE 5%-WATER - 50 ML IVPB ONE (20:13)
[2022-12-20 20:16] LABS: BASO % 0.3 % (0-2.0); EOS % 0.2 % (0-4.5); HEMATOCRIT 31.8 % (32.4-45.2); HEMOGLOBIN 10.8 GM/dL (10.7-15.3); LYMPH % 1.4 % (8-40); MCH 33.1 pg (25.7-33.7); MCHC 33.8 g/dl (32.0-36.0); MEAN CELL VOLUME 97.6 fl (80-96); MONO % 2.6 % (3.8-10.2); NEUT % 95.5 % (42.8-82.8); PLATELET COUNT 251 10^3/uL (134-434); RBC 3.26 M/mm3 (3.60-5.2); RDW 13.2 % (11.6-15.6); WHITE BLOOD COUNT 19.4 K/mm3 (4.0-10.0)
[2022-12-20] MEDS ORDERED: VANCOMYCIN/WATER FOR INJ (PEG) 1,000 MG/200 ML BAG IVPB ONE (20:23)
[2022-12-20] MEDS ORDERED: PIPERACILLIN/TAZOB 2.25 GM 2.25 GM/50 ML BAG IVPB ONE (20:23)
[2022-12-20] MEDS ORDERED: LABETALOL HCL 5 MG/1 ML (100MG/20 ML VIAL) IVPUSH ONE (20:45)
[2022-12-20 21:03] LABS: MAGNESIUM 1.9 mg/dL (1.8-2.4)
[2022-12-20 21:13] LABS: ANISOCYTOSIS 0; MACROCYTOSIS 0
[2022-12-20 21:14] LABS: CALCIUM 8.8 mg/dL (8.5-10.1); POTASSIUM 4.1 mmol/L (3.5-5.1)
[2022-12-20 21:15] LABS: ALBUMIN 3.4 g/dl (3.4-5.0); BLOOD UREA NITROGEN 23.7 mg/dL (7-18)
[2022-12-20 21:18] LABS: CREATININE 4.4 mg/dL (0.55-1.3)
[2022-12-20 21:20] LABS: BILIRUBIN,TOTAL 1.1 mg/dL (0.2-1); TOT PROT 7.7 g/dl (6.4-8.2)
[2022-12-20] MEDS ORDERED: METOCLOPRAMIDE HCL INJECTION 10 MG/2 ML VIAL IM ONE (22:37)
[2022-12-20] MEDS ORDERED: METOCLOPRAMIDE HCL INJECTION 10 MG/2 ML VIAL ONE (22:44)
[2022-12-21] MEDS ORDERED: ACETAMINOPHEN 325 MG TABLET (FP) PO PRN (00:05)
[2022-12-21] MEDS ORDERED: LABETALOL HCL 100 MG TABLET (FP) ONE (00:24)
[2022-12-21] MEDS: LABETALOL HCL 200 MG TABLET (FP) PO SCH ×3 (00:33→21:38)
[2022-12-21] MEDS ORDERED: PIPERACILLIN/TAZOB 2.25 GM 2.25 GM/50 ML BAG IVPB ONE (02:52)
[2022-12-21] MEDS ORDERED: PIPERACILLIN/TAZOB 2.25 GM 2.25 GM in DEXTROSE 5%-WATER - 50 ML IVPB ONE (04:00)
[2022-12-21] MEDS ORDERED: NIFEdipine E.R. 30 MG TABLET PO SCH (07:00)
[2022-12-21 07:04] LABS: HEMATOCRIT 31.5 % (32.4-45.2); HEMOGLOBIN 10.4 GM/dL (10.7-15.3); MCH 33.1 pg (25.7-33.7); MCHC 32.9 g/dl (32.0-36.0); MEAN CELL VOLUME 100.5 fl (80-96); MEAN PLT VOLUME 7.4 fl (7.5-11.1); PLATELET COUNT 236 10^3/uL (134-434); RBC 3.13 M/mm3 (3.60-5.2)
[2022-12-21 07:18] LABS: POTASSIUM 4.5 mmol/L (3.5-5.1)
[2022-12-21 07:20] LABS: ALBUMIN 2.7 g/dl (3.4-5.0); BLOOD UREA NITROGEN 34.1 mg/dL (7-18); CALCIUM 8.2 mg/dL (8.5-10.1)
[2022-12-21 07:23] LABS: CREATININE 5.4 mg/dL (0.55-1.3)
[2022-12-21 07:25] LABS: BILIRUBIN,TOTAL 0.9 mg/dL (0.2-1); TOT PROT 6.3 g/dl (6.4-8.2)
[2022-12-21] MEDS ORDERED: NIFEdipine E.R 60 MG TABLET PO ONE (07:31)
[2022-12-21] MEDS ORDERED: NIFEdipine E.R. 30 MG TABLET PO ONE (07:31)
[2022-12-21 09:57] LABS: ANISOCYTOSIS 0; HELMET CELLS 0; HOWELL-JOLLY BODIES 0; MACROCYTOSIS 0; OVALOCYTE 0; ROULEAU 0; SICKELED CELLS 0; TARGET CELLS 0; TEAR DROP CELLS 0; TOXIC GRANULATION 0
[2022-12-21] MEDS ORDERED: SODIUM CHLORIDE 250 ML IV PRN (14:33)
[2022-12-21 16:00] VITALS: BMI 21.4
[2022-12-21] MEDS: PIPERACILLIN/TAZOB 2.25 GM 2.25 GM in DEXTROSE 5%-WATER - 50 ML IVPB SCH (17:27)
[2022-12-21] MEDS: NIFEdipine E.R 60 MG TABLET PO SCH (21:39)
[2022-12-21] MEDS ORDERED: hydrALAZINE HCL 10 MG TABLET PO SCH ×2 (22:00)
[2022-12-22] MEDS: PIPERACILLIN/TAZOB 2.25 GM 2.25 GM in DEXTROSE 5%-WATER - 50 ML IVPB SCH ×3 (02:24→17:19)
[2022-12-22] MEDS: NIFEdipine E.R 60 MG TABLET PO SCH ×2 (12:22→21:52)
[2022-12-22] MEDS: LABETALOL HCL 200 MG TABLET (FP) PO SCH ×2 (12:22→21:52)
[2022-12-22] MEDS: LISINOPRIL 20 MG TABLET PO SCH (12:22)
[2022-12-23] MEDS: PIPERACILLIN/TAZOB 2.25 GM 2.25 GM in DEXTROSE 5%-WATER - 50 ML IVPB SCH ×3 (02:57→17:24)
[2022-12-23] MEDS: LISINOPRIL 20 MG TABLET PO SCH (09:00)
[2022-12-23] MEDS: NIFEdipine E.R 60 MG TABLET PO SCH ×2 (09:00→22:18)
[2022-12-23] MEDS: LABETALOL HCL 200 MG TABLET (FP) PO SCH ×2 (09:00→22:18)
[2022-12-24] MEDS: PIPERACILLIN/TAZOB 2.25 GM 2.25 GM in DEXTROSE 5%-WATER - 50 ML IVPB SCH ×2 (02:13→10:16)
[2022-12-24 07:45] LABS: EOS % 4.5 % (0-4.5); HEMATOCRIT 28.2 % (32.4-45.2); HEMOGLOBIN 9.5 GM/dL (10.7-15.3); MCH 33.6 pg (25.7-33.7); MCHC 33.6 g/dl (32.0-36.0); MEAN CELL VOLUME 99.9 fl (80-96); MEAN PLT VOLUME 7.6 fl (7.5-11.1); MONO % 7.9 % (3.8-10.2); NEUT % 74.6 % (42.8-82.8); PLATELET COUNT 206 10^3/uL (134-434); RBC 2.82 M/mm3 (3.60-5.2); RDW 12.5 % (11.6-15.6); WHITE BLOOD COUNT 5.8 K/mm3 (4.0-10.0)
[2022-12-24 08:30] LABS: CHLORIDE 102 mmol/L (98-107); POTASSIUM 4.1 mmol/L (3.5-5.1); SODIUM 140 mmol/L (136-145)
[2022-12-24 08:33] LABS: ALBUMIN 2.7 g/dl (3.4-5.0); ANION GAP 11 MMOL/L (8-16); BLOOD UREA NITROGEN 41.9 mg/dL (7-18); CALCIUM 7.9 mg/dL (8.5-10.1); CO2 26 mmol/L (21-32); GLUCOSE,RANDOM 96 mg/dL (74-106)
[2022-12-24 08:36] LABS: SGOT/AST 21 U/L (15-37); SGPT/ALT 20 U/L (13-61)
[2022-12-24 08:38] LABS: BILIRUBIN,TOTAL 0.7 mg/dL (0.2-1); TOT PROT 6.2 g/dl (6.4-8.2)
[2022-12-24 08:39] LABS: ALK PHOS 121 U/L (45-117)
[2022-12-24 08:44] LABS: CREATININE 7.5 mg/dL (0.55-1.3)
[2022-12-24] MEDS: LABETALOL HCL 200 MG TABLET (FP) PO SCH (10:16)
[2022-12-24] MEDS: LISINOPRIL 20 MG TABLET PO SCH (10:16)
[2022-12-24] MEDS: NIFEdipine E.R 60 MG TABLET PO SCH (10:17)
[2022-12-24 12:19] VITALS: BP 151/83; PULSE 64; RESP 18; TEMP 97.7
== END 2022-12-24 13:59 | disposition home or self-care (01) | DRG 139 ==
LOC: JER 18:56 → JERBED 22:11 → J7W 12-21 14:27
PROVIDERS: ADMIT Specialist; ATTEND Specialist
PROC: 5A1D70Z Performance of Urinary Filtration, Intermittent, Less than 6 Hours Per Day (ICD-10-PCS; principal; 2022-12-21)
DX: J18.9 Pneumonia, unspecified organism (principal); I12.0 Hypertensive chronic kidney disease with stage 5 chronic kidney disease or end stage renal disease; N18.6 End stage renal disease; Z99.2 Dependence on renal dialysis; J45.909 Unspecified asthma, uncomplicated; D64.9 Anemia, unspecified; I51.7 Cardiomegaly
CPT/HCPCS: 0241U-QW; 36415; 70450-TC; 71045-TC-FY; 71046-TC-FY; 80053; 82803; 83605; 83735; 84484; 84702; 84703; 85025; 86803; 86850; 86900; 86901; 87040; 87340; 93005; 93010; 94010; 99285-25

== ENCOUNTER 2023-01-10 06:47 | Day surgery (SDC) | payer OTHER ==
[2023-01-10 06:54] VITALS: BMI 27.3
[2023-01-10] MEDS ORDERED: MIDAZOLAM HCL 2 MG/2 ML SINGLE DOSE VIAL ONE (08:20)
[2023-01-10] MEDS ORDERED: PROPOFOL 20 ML ONE (08:20)
[2023-01-10 08:46] LABS: CHLORIDE 101 mmol/L (98-107); POTASSIUM 4.3 mmol/L (3.5-5.1); SODIUM 137 mmol/L (136-145)
[2023-01-10 08:48] LABS: ANION GAP 12 MMOL/L (8-16); CALCIUM 8.8 mg/dL (8.5-10.1); CO2 24 mmol/L (21-32); GLUCOSE,RANDOM 89 mg/dL (74-106)
[2023-01-10 08:49] LABS: ALBUMIN 3.2 g/dl (3.4-5.0); BLOOD UREA NITROGEN 57.4 mg/dL (7-18)
[2023-01-10 08:51] LABS: SGPT/ALT 24 U/L (13-61)
[2023-01-10 08:52] LABS: SGOT/AST 25 U/L (15-37)
[2023-01-10 08:53] LABS: BILIRUBIN,TOTAL 0.7 mg/dL (0.2-1); TOT PROT 7.2 g/dl (6.4-8.2)
[2023-01-10 08:54] LABS: ALK PHOS 138 U/L (45-117)
[2023-01-10 08:56] LABS: CREATININE 7.7 mg/dL (0.55-1.3)
[2023-01-10] MEDS ORDERED: ceFAZolin SODIUM 1 GM VIAL ONE (09:03)
[2023-01-10] MEDS ORDERED: ceFAZolin SODIUM 1 GM VIAL IVPB ONE (09:04)
[2023-01-10] MEDS ORDERED: LIDOCAINE HCL 1%, 10 MG/ML (20ML VIAL) INF ONE (09:05)
[2023-01-10] MEDS ORDERED: ONDANSETRON 4 MG/2 ML VIAL ONE (09:08)
[2023-01-10] MEDS ORDERED: ACETAMINOPHEN 325 MG TABLET (FP) PO PRN (09:51)
[2023-01-10] MEDS ORDERED: SODIUM CHLORIDE 1,000 ML IV SCH (10:00)
[2023-01-10 11:02] VITALS: RESP 18
[2023-01-10 11:36] VITALS: BP 160/80; PULSE 65; TEMP 97.1
== END 2023-01-10 11:40 | disposition home or self-care (01) ==
LOC: JER 06:47 → JASUSAT 07:41
PROVIDERS: ATTEND Surgery
PROC: 3E033NZ Introduction of Analgesics, Hypnotics, Sedatives into Peripheral Vein, Percutaneous Approach (ICD-10-PCS; principal; 2023-01-10 08:00)
DX: T82.590A Other mechanical complication of surgically created arteriovenous fistula, initial encounter (principal); I12.0 Hypertensive chronic kidney disease with stage 5 chronic kidney disease or end stage renal disease; N18.6 End stage renal disease; Z99.2 Dependence on renal dialysis
CPT/HCPCS: 36415; 76000-TC-FY; 80053; 94760; 99285-25

== ENCOUNTER 2023-03-04 00:08 | Inpatient (IN) | payer OTHER ==
[2023-03-04 00:25] VITALS: BMI 25.4
[2023-03-04] MEDS ORDERED: ALBUTEROL SO4 2.5/IPRATROPIUM 0.5 INH SOL 3 ML VIAL.NEB. NEB ONE (00:26)
[2023-03-04 00:52] LABS: BASO % 0.5 % (0-2.0); HEMATOCRIT 30.2 % (32.4-45.2); HEMOGLOBIN 10.5 GM/dL (10.7-15.3); LYMPH % 5.9 % (8-40); MCH 33.9 pg (25.7-33.7); MCHC 34.6 g/dl (32.0-36.0); MEAN PLT VOLUME 7.4 fl (7.5-11.1); NEUT % 85.6 % (42.8-82.8); PLATELET COUNT 212 10^3/uL (134-434); RBC 3.08 M/mm3 (3.60-5.2); RDW 13.7 % (11.6-15.6); VENOUS BASE EXCESS -4.9 mmol/L (-2-2); VENOUS O2 SATURATION 77.9 % (70-80); VENOUS PCO2 38.1 mmHg (38-52); VENOUS PH 7.344 (7.310-7.410); WHITE BLOOD COUNT 12.1 K/mm3 (4.0-10.0)
[2023-03-04 00:59] LABS: INR 1.21 (0.83-1.09)
[2023-03-04 01:01] LABS: ACTIVATED PTT 31.8 SECONDS (25.2-36.5)
[2023-03-04 01:03] LABS: CHLORIDE 103 mmol/L (98-107); POTASSIUM 4.4 mmol/L (3.5-5.1); SODIUM 138 mmol/L (136-145)
[2023-03-04 01:05] LABS: ALBUMIN 3.1 g/dl (3.4-5.0); ANION GAP 14 mmol/L (4-13); BLOOD UREA NITROGEN 56.2 mg/dL (7-18); CALCIUM 8.3 mg/dL (8.5-10.1); CO2 21 mmol/L (21-32); GLUCOSE,RANDOM 124 mg/dL (74-106)
[2023-03-04 01:08] LABS: SGPT/ALT 27 U/L (13-61)
[2023-03-04] MEDS ORDERED: LABETALOL HCL 100 MG TABLET (FP) PO ONE (01:08)
[2023-03-04] MEDS ORDERED: NITROGLYCERIN SUBLINGUAL 1/150 0.4 MG TAB SL ONE (01:08)
[2023-03-04 01:09] LABS: CREATININE 6.9 mg/dL (0.55-1.3); SGOT/AST 31 U/L (15-37)
[2023-03-04 01:10] LABS: BILIRUBIN,TOTAL 0.9 mg/dL (0.2-1); TOT PROT 6.6 g/dl (6.4-8.2)
[2023-03-04] MEDS ORDERED: AZITHROMYCIN IVPB 500 MG in DEXTROSE 5%-WATER - 250 ML IVPB ONE (01:10)
[2023-03-04] MEDS ORDERED: ACETAMINOPHEN 1000 MG/100 ML BAG IVPB ONE (01:10)
[2023-03-04] MEDS ORDERED: CEFTRIAXONE 1 GM in DEXTROSE 5%-WATER - 50 ML IVPB ONE (01:10)
[2023-03-04 01:11] LABS: ALK PHOS 133 U/L (45-117)
[2023-03-04] MEDS ORDERED: LABETALOL HCL 100 MG TABLET (FP) ONE (01:19)
[2023-03-04] MEDS ORDERED: AZITHROMYCIN IVPB 500 MG/250 ML BAG IVPB ONE (01:19)
[2023-03-04] MEDS ORDERED: ACETAMINOPHEN INJECTION 100 ML IVPB ONE (01:19)
[2023-03-04] MEDS ORDERED: CEFTRIAXONE 1 GM/50 ML BAG ONE ×2 (01:19→08:42)
[2023-03-04 01:47] LABS: N-TERMINAL BNP > 175000.0 pg/ml (5-125)
[2023-03-04] MEDS ORDERED: SUCRALFATE 1 GM TABLET (FP) PO ONE (02:51)
[2023-03-04] MEDS ORDERED: MAG HYDROX/AL HYDROX/SIMETH -MYLANTA- ORAL SUSPENSION PO ONE (02:51)
[2023-03-04] MEDS ORDERED: FAMOTIDINE 20 MG/50 ML IVPB 20 MG/50 ML MG IVPB ONE ×2 (02:51→02:54)
[2023-03-04] MEDS ORDERED: SUCRALFATE 1 GM TABLET (FP) ONE (02:53)
[2023-03-04] MEDS ORDERED: MAG HYDROX/AL HYDROX/SIMETH 30 ML UNIT-DOSE CUP ONE (02:53)
[2023-03-04] MEDS ORDERED: ACETAMINOPHEN 1000 MG/100 ML BAG IVPB PRN (05:29)
[2023-03-04] MEDS ORDERED: HEPARIN NA (PORCINE) 5,000 UNITS/ML 1ML VIAL ONE ×2 (08:42→20:53)
[2023-03-04 09:19] LABS: BASO % 0.4 % (0-2.0); EOS % 0.2 % (0-4.5); HEMATOCRIT 28.9 % (32.4-45.2); HEMOGLOBIN 10.1 GM/dL (10.7-15.3); LYMPH % 4.2 % (8-40); MCH 34.3 pg (25.7-33.7); MEAN PLT VOLUME 7.5 fl (7.5-11.1); MONO % 5.7 % (3.8-10.2); NEUT % 89.5 % (42.8-82.8); PLATELET COUNT 194 10^3/uL (134-434); RBC 2.95 M/mm3 (3.60-5.2); RDW 13.5 % (11.6-15.6); WHITE BLOOD COUNT 16.3 K/mm3 (4.0-10.0)
[2023-03-04] MEDS ORDERED: SODIUM CHLORIDE 250 ML IV PRN (09:35)
[2023-03-04 09:54] LABS: ALBUMIN 2.8 g/dl (3.4-5.0); BILIRUBIN,TOTAL 0.8 mg/dL (0.2-1); BLOOD UREA NITROGEN 56.7 mg/dL (7-18); CALCIUM 8.2 mg/dL (8.5-10.1); CREATININE 7.4 mg/dL (0.55-1.3); MAGNESIUM 1.7 mg/dL (1.8-2.4); PHOSPHOROUS 5.5 mg/dL (2.5-4.9); POTASSIUM 4.3 mmol/L (3.5-5.1); TOT PROT 6.2 g/dl (6.4-8.2)
[2023-03-04] MEDS: AZITHROMYCIN IVPB 250 MG in DEXTROSE 5%-WATER - 250 ML IVPB SCH (10:39)
[2023-03-04] MEDS: CEFTRIAXONE 1 GM in DEXTROSE 5%-WATER - 50 ML IVPB SCH (10:39)
[2023-03-04] MEDS: HEPARIN NA (PORCINE) 5,000 UNITS/ML 1ML VIAL SQ SCH ×2 (10:39→21:07)
[2023-03-04] MEDS ORDERED: NIFEdipine E.R 60 MG TABLET PO ONE ×2 (12:45→20:53)
[2023-03-04] MEDS ORDERED: LABETALOL HCL 200 MG TABLET (FP) ONE (20:53)
[2023-03-04] MEDS: NIFEdipine E.R 60 MG TABLET PO SCH (21:07)
[2023-03-04] MEDS: LABETALOL HCL 200 MG TABLET (FP) PO SCH (21:07)
[2023-03-05] MEDS ORDERED: CEFTRIAXONE 1 GM/50 ML BAG ONE (11:40)
[2023-03-05] MEDS: NIFEdipine E.R 60 MG TABLET PO SCH (11:53)
[2023-03-05] MEDS: AZITHROMYCIN IVPB 250 MG in DEXTROSE 5%-WATER - 250 ML IVPB SCH (11:53)
[2023-03-05] MEDS: LABETALOL HCL 200 MG TABLET (FP) PO SCH (11:53)
[2023-03-05] MEDS: HEPARIN NA (PORCINE) 5,000 UNITS/ML 1ML VIAL SQ SCH (11:53)
[2023-03-05] MEDS: CEFTRIAXONE 1 GM in DEXTROSE 5%-WATER - 50 ML IVPB SCH (11:53)
[2023-03-05 13:11] LABS: BASO % 0.6 % (0-2.0); EOS % 2.2 % (0-4.5); HEMATOCRIT 28.6 % (32.4-45.2); HEMOGLOBIN 10.1 GM/dL (10.7-15.3); LYMPH % 7.6 % (8-40); MCHC 35.2 g/dl (32.0-36.0); MEAN CELL VOLUME 96.7 fl (80-96); MEAN PLT VOLUME 7.6 fl (7.5-11.1); MONO % 5.2 % (3.8-10.2); NEUT % 84.4 % (42.8-82.8); PLATELET COUNT 209 10^3/uL (134-434); RBC 2.96 M/mm3 (3.60-5.2); RDW 13.5 % (11.6-15.6); WHITE BLOOD COUNT 9.9 K/mm3 (4.0-10.0)
[2023-03-05 13:30] LABS: HEPATITIS B SURFACE AG MATERN NON-REACTIVE (NONREACTIVE)
[2023-03-05 14:51] LABS: POTASSIUM 3.6 mmol/L (3.5-5.1)
[2023-03-05 14:52] LABS: BLOOD UREA NITROGEN 40.9 mg/dL (7-18)
[2023-03-05 14:55] LABS: CREATININE 6.1 mg/dL (0.55-1.3)
[2023-03-05 15:01] LABS: CALCIUM 8.7 mg/dL (8.5-10.1)
[2023-03-05 16:02] VITALS: BP 134/86; PULSE 78; RESP 15; TEMP 98.3
== END 2023-03-05 15:47 | disposition home or self-care (01) | DRG 139 ==
LOC: JER 00:08 → JERBED 01:12
PROVIDERS: ADMIT Internal Medicine; ATTEND Internal Medicine
PROC: 5A1D70Z Performance of Urinary Filtration, Intermittent, Less than 6 Hours Per Day (ICD-10-PCS; principal; 2023-03-04)
DX: J18.9 Pneumonia, unspecified organism (principal); J45.909 Unspecified asthma, uncomplicated; I12.0 Hypertensive chronic kidney disease with stage 5 chronic kidney disease or end stage renal disease; N18.6 End stage renal disease; Z99.2 Dependence on renal dialysis; D64.9 Anemia, unspecified; I16.0 Hypertensive urgency; R11.2 Nausea with vomiting, unspecified; I24.89 Other forms of acute ischemic heart disease
CPT/HCPCS: 0241U-QW; 36415; 71045-TC-FY; 80048; 80053; 82803; 83036; 83735; 83880; 84100; 84443; 84484; 84703; 85025; 85610; 85730; 86705; 87040; 87340; 87517; 93005; 93010; 99285-25; J1644